=== PATIENT | female | born 1960 | race Caucasian/White ===

== ENCOUNTER 2016-11-12 22:58 | Inpatient (IN) | payer OTHER ==
[~2016-11-12] VITALS: Ht 167.6 cm; Wt 70.4 kg
[~2016-11-12 22:58] MED LIST: AMPI3VIA IV; ASPI1TAB30 PO; ATOR20TA9 PO; ATOR40TA PO; FURO-92 PO; FURO-93 PO; LEVO750P2 IV; LIDOCAINE PATCH TD; MESA1.2T PO; METH750T87 PO; METO25TA91 PO; MORP100T27 PO; ONDA4TAB7 PO; OXYC-229 PO; PANT40TA3 PO; POTA20TA89 PO; PRED20TA PO; PRED50TA PO; PYRI60TA2 PO; VANC1VIA3 PO; VENL150C PO
[2016-11-12] MEDS ORDERED: AMPICILLIN/SULBACTAM 3 GM in SODIUM CHLORIDE 0.9% 100 ML IV ONE (23:30)
[2016-11-12] MEDS ORDERED: VANCOMYCIN PER PHARMACY MC ONE (23:30)
[2016-11-13] MEDS ORDERED: VANCOMYCIN 1,400 MG in SODIUM CHLORIDE 0.9% 250 ML IV ONE
[2016-11-13 00:40] LABS: BLOOD UREA NITROGEN 59 mg/dL (7-18)
[2016-11-13 00:44] LABS: ASPARTATE AMINO TRANSFERASE 32 U/L (15-37); DIFF TOTAL CELLS COUNTED 100 CELL DIFF
[2016-11-13 00:49] LABS: ANISOCYTOSIS 2+; MICROCYTOSIS 2+; VERIFY COUNTS? YES
[2016-11-13 00:50] LABS: HYPOCHROMIA 1+; OVALOCYTES 1+; POLYCHROMASIA 1+
[2016-11-13 00:51] LABS: TARGET CELLS 1+
[2016-11-13 00:52] LABS: SCHISTOCYTES 1+
[2016-11-13 00:53] LABS: LARGE PLATELETS 1+
[2016-11-13] MEDS ORDERED: CLINDAMYCIN PMX 600MG/50ML 50 ML IV ONE (01:00)
[2016-11-13] MEDS ORDERED: SODIUM CHLORIDE 0.9% 1,000ML IVBOLUS ONE (01:00)
[2016-11-13] MEDS ORDERED: POLYETHYLENE GLYCOL 17 GM PACKET PO PRN (02:00)
[2016-11-13] MEDS ORDERED: BISACODYL 10 MG SUPP PR PRN (02:00)
[2016-11-13] MEDS ORDERED: GUAIFENESIN/DM 200-20MG, 10ML UDC PO PRN (02:00)
[2016-11-13] MEDS ORDERED: DOCUSATE 100 MG CAPSULE PO PRN (02:00)
[2016-11-13] MEDS ORDERED: TRAZODONE 50MG TABLET PO PRN (02:00)
[2016-11-13] MEDS: HEPARIN 5,000 UNITS/ML, 1ML SQ SCH ×3 (02:00→18:08)
[2016-11-13] MEDS ORDERED: LABETALOL 5MG/ML, 20ML IV PRN (02:00)
[2016-11-13] MEDS: NICOTINE 14MG/24 HR PATCH.TD24 TD SCH (02:00)
[2016-11-13] MEDS ORDERED: CLINDAMYCIN PMX 600MG/50ML 50 ML ONE (02:24)
[2016-11-13] MEDS: SODIUM CHLORIDE 0.9% 1,000 ML IV SCH ×4 (02:29→21:56)
[2016-11-13 02:50] VITALS: BP 143/88
[2016-11-13] MEDS: PYRIDOSTIGMINE 60 MG TABLET PO SCH ×5 (04:28→21:14)
[2016-11-13] MEDS: LINEZOLID PMX 600MG/300ML 300 ML IV SCH ×2 (04:28→15:54)
[2016-11-13] MEDS: METOPROLOL SUCCINATE 25 MG TAB.ER.24H PO SCH (06:04)
[2016-11-13] MEDS: PIPERACILLIN/TAZO/PMX 3.375GM 50 ML IV SCH ×3 (07:26→21:15)
[2016-11-13] MEDS: predniSONE 50MG TABLET PO SCH (08:05)
[2016-11-13] MEDS: PANTOPROZOLE 40MG TABLET PO SCH ×2 (08:05→21:15)
[2016-11-13] MEDS: METHOCARBAMOL 750 MG TABLET PO SCH ×3 (08:05→21:15)
[2016-11-13] MEDS: VENLAFAXINE 75 MG CAP ER PO SCH (08:05)
[2016-11-13] MEDS: MESALAMINE 1.2 GM TABLET.DR PO SCH ×2 (08:05→21:15)
[2016-11-13 08:06] VITALS: BP 125/77
[2016-11-13] MEDS: LIDODERM 5% PATCH TD SCH (08:06)
[2016-11-13] MEDS: MORPHINE SULFATE 4 MG/ML, 1ML IVPush PRN (08:37)
[2016-11-13 08:57] LABS: DAU SCREEN DISCLAIMER
[2016-11-13 12:42] VITALS: BP 174/91
[2016-11-13 12:50] VITALS: BP 147/78
[2016-11-13 16:00] VITALS: BP 159/80
[2016-11-13 19:44] VITALS: BP 126/79
[2016-11-13] MEDS: ATORVASTATIN 40 MG TABLET PO SCH (21:15)
[2016-11-14 02:00] VITALS: BP 134/80
[2016-11-14] MEDS: PYRIDOSTIGMINE 60 MG TABLET PO SCH ×6 (04:36→21:48)
[2016-11-14] MEDS: HEPARIN 5,000 UNITS/ML, 1ML SQ SCH ×3 (04:37→21:48)
[2016-11-14] MEDS: SODIUM CHLORIDE 0.9% 1,000 ML IV SCH ×4 (04:37→21:47)
[2016-11-14] MEDS: PIPERACILLIN/TAZO/PMX 3.375GM 50 ML IV SCH ×4 (04:37→21:48)
[2016-11-14] MEDS: METOPROLOL SUCCINATE 25 MG TAB.ER.24H PO SCH (05:55)
[2016-11-14] MEDS: LINEZOLID PMX 600MG/300ML 300 ML IV SCH (05:55)
[2016-11-14 07:44] LABS: BLOOD UREA NITROGEN 23 mg/dL (7-18)
[2016-11-14 07:50] VITALS: BP 147/83
[2016-11-14 08:23] LABS: DIFF TOTAL CELLS COUNTED 100 CELL DIFF
[2016-11-14 08:26] LABS: VERIFY COUNTS? YES
[2016-11-14 08:27] LABS: ANISOCYTOSIS 2+; HYPOCHROMIA 1+; MICROCYTOSIS 2+; OVALOCYTES 1+; POIKILOCYTOSIS 2+
[2016-11-14 08:28] LABS: ACANTHOCYTES 1+
[2016-11-14 08:29] LABS: TARGET CELLS 1+
[2016-11-14] MEDS: NICOTINE 14MG/24 HR PATCH.TD24 TD SCH (09:00)
[2016-11-14] MEDS: LIDODERM 5% PATCH TD SCH (09:00)
[2016-11-14] MEDS: ONDANSETRON 2MG/ML, 2ML IVP PRN ×2 (09:39→21:51)
[2016-11-14] MEDS: MESALAMINE 1.2 GM TABLET.DR PO SCH ×2 (10:03→21:48)
[2016-11-14] MEDS: predniSONE 50MG TABLET PO SCH (10:03)
[2016-11-14] MEDS: PANTOPROZOLE 40MG TABLET PO SCH ×2 (10:03→21:48)
[2016-11-14] MEDS: METHOCARBAMOL 750 MG TABLET PO SCH ×3 (10:03→21:48)
[2016-11-14] MEDS: MORPHINE SULFATE 4 MG/ML, 1ML IVPush PRN (10:04)
[2016-11-14] MEDS: VENLAFAXINE 75 MG CAP ER PO SCH (10:04)
[2016-11-14 14:22] VITALS: BP 139/91
[2016-11-14] MEDS: metroNIDAZOLE 500 MG TABLET PO SCH ×2 (15:53→21:48)
[2016-11-14 19:25] VITALS: BP 146/86
[2016-11-14] MEDS: ATORVASTATIN 40 MG TABLET PO SCH (21:48)
[2016-11-15 02:00] VITALS: BP 127/81
[2016-11-15] MEDS: ONDANSETRON 2MG/ML, 2ML IVP PRN ×2 (03:16→09:14)
[2016-11-15] MEDS: SODIUM CHLORIDE 0.9% 1,000 ML IV SCH ×4 (03:16→20:19)
[2016-11-15] MEDS: PIPERACILLIN/TAZO/PMX 3.375GM 50 ML IV SCH ×4 (03:19→23:47)
[2016-11-15] MEDS: PYRIDOSTIGMINE 60 MG TABLET PO SCH ×6 (03:19→20:19)
[2016-11-15] MEDS: METOPROLOL SUCCINATE 25 MG TAB.ER.24H PO SCH (05:23)
[2016-11-15] MEDS: HEPARIN 5,000 UNITS/ML, 1ML SQ SCH ×2 (05:23→13:12)
[2016-11-15 06:05] LABS: BLOOD UREA NITROGEN 9 mg/dL (7-18)
[2016-11-15 07:02] VITALS: BP 146/85
[2016-11-15 07:11] LABS: DIFF TOTAL CELLS COUNTED 100 CELL DIFF
[2016-11-15 07:12] LABS: ANISOCYTOSIS 2+; HYPOCHROMIA 2+; MICROCYTOSIS 2+; POIKILOCYTOSIS 1+; VERIFY COUNTS? YES
[2016-11-15 07:13] LABS: OVALOCYTES 1+
[2016-11-15] MEDS: POTASSIUM CHLORIDE 20 MEQ TAB.ER.PRT PO SCH ×2 (08:00→16:53)
[2016-11-15] MEDS: PANTOPROZOLE 40MG TABLET PO SCH ×2 (09:00→22:18)
[2016-11-15] MEDS: NICOTINE 14MG/24 HR PATCH.TD24 TD SCH (09:00)
[2016-11-15] MEDS: metroNIDAZOLE 500 MG TABLET PO SCH (09:00)
[2016-11-15] MEDS: MESALAMINE 1.2 GM TABLET.DR PO SCH ×2 (09:00→22:19)
[2016-11-15] MEDS: VENLAFAXINE 75 MG CAP ER PO SCH (09:00)
[2016-11-15] MEDS: METHOCARBAMOL 750 MG TABLET PO SCH ×3 (09:00→22:19)
[2016-11-15] MEDS: predniSONE 50MG TABLET PO SCH ×2 (09:00→13:13)
[2016-11-15] MEDS: MORPHINE SULFATE 4 MG/ML, 1ML IVPush PRN ×3 (09:14→23:47)
[2016-11-15] MEDS ORDERED: VANCOMYCIN PER PHARMACY MC PRN (09:30)
[2016-11-15] MEDS ORDERED: POTASSIUM CHLORIDE 40 MEQ in SODIUM CHLORIDE 0.9% 500 ML IV ONE (10:30)
[2016-11-15] MEDS ORDERED: PHARMACOKINETIC CONSULTATION MC ONE (11:30)
[2016-11-15] MEDS ORDERED: PHARMACOKINETIC MONITORING MC PRN (11:30)
[2016-11-15] MEDS: VANCOMYCIN 1,200 MG in SODIUM CHLORIDE 0.9% 250 ML IV SCH (12:20)
[2016-11-15 13:59] VITALS: BP 139/80
[2016-11-15] MEDS: METRONIDAZOLE PMX 500MG/100ML 100 ML IV SCH ×2 (14:19→20:18)
[2016-11-15] MEDS: PANTOPRAZOLE 40 MG IV IVPush SCH (16:53)
[2016-11-15 19:00] LABS: OCCBLD OBC PASS
[2016-11-15] MEDS ORDERED: OMNIPAQUE 350 MG/ML, 100ML BOTTLE ONE (20:00)
[2016-11-15 20:04] VITALS: BP 159/91
[2016-11-15 20:25] VITALS: BP 155/85
[2016-11-15] MEDS: ATORVASTATIN 40 MG TABLET PO SCH (22:18)
[2016-11-15] MEDS: LIDODERM 5% PATCH TD SCH (22:18)
[2016-11-16] MEDS: VANCOMYCIN 1,200 MG in SODIUM CHLORIDE 0.9% 250 ML IV SCH ×2 (00:22→12:06)
[2016-11-16] MEDS: ONDANSETRON 2MG/ML, 2ML IVP PRN ×3 (00:22→23:15)
[2016-11-16] MEDS: PYRIDOSTIGMINE 60 MG TABLET PO SCH ×6 (00:22→19:50)
[2016-11-16 02:00] VITALS: BP 148/98
[2016-11-16] MEDS: MORPHINE SULFATE 4 MG/ML, 1ML IVPush PRN ×5 (02:52→23:16)
[2016-11-16 04:01] LABS: BLOOD UREA NITROGEN 11 mg/dL (7-18)
[2016-11-16 04:13] LABS: DIFF TOTAL CELLS COUNTED 100 CELL DIFF
[2016-11-16 04:14] LABS: VERIFY COUNTS? YES
[2016-11-16 04:15] LABS: ANISOCYTOSIS 2+; HYPOCHROMIA 1+; MICROCYTOSIS 2+; OVALOCYTES 1+; POIKILOCYTOSIS 1+; POLYCHROMASIA 1+
[2016-11-16] MEDS: SODIUM CHLORIDE 0.9% 1,000 ML IV SCH ×4 (04:38→21:52)
[2016-11-16] MEDS: METRONIDAZOLE PMX 500MG/100ML 100 ML IV SCH ×2 (04:38→12:06)
[2016-11-16 05:39] VITALS: BP 138/79
[2016-11-16] MEDS: PIPERACILLIN/TAZO/PMX 3.375GM 50 ML IV SCH ×4 (05:43→23:16)
[2016-11-16] MEDS: METOPROLOL SUCCINATE 25 MG TAB.ER.24H PO SCH (05:43)
[2016-11-16 08:10] VITALS: BP 132/81
[2016-11-16] MEDS: METHOCARBAMOL 750 MG TABLET PO SCH ×3 (08:38→21:52)
[2016-11-16] MEDS: predniSONE 50MG TABLET PO SCH (08:38)
[2016-11-16] MEDS: MESALAMINE 1.2 GM TABLET.DR PO SCH ×2 (08:38→21:52)
[2016-11-16] MEDS: PANTOPRAZOLE 40 MG IV IVPush SCH (08:38)
[2016-11-16] MEDS: VENLAFAXINE 75 MG CAP ER PO SCH (08:39)
[2016-11-16] MEDS: NICOTINE 14MG/24 HR PATCH.TD24 TD SCH (08:39)
[2016-11-16] MEDS: POTASSIUM CHLORIDE 20 MEQ TAB.ER.PRT PO SCH (11:09)
[2016-11-16 13:00] VITALS: BP 154/87
[2016-11-16] MEDS: VANCOMYCIN 50 MG/ML ORAL SUSP PO SCH ×2 (16:31→23:15)
[2016-11-16] MEDS: PANTOPROZOLE 40MG TABLET PO SCH (16:43)
[2016-11-16 20:11] VITALS: BP 125/80
[2016-11-16] MEDS: ATORVASTATIN 40 MG TABLET PO SCH (21:52)
[2016-11-16] MEDS: LIDODERM 5% PATCH TD SCH (21:54)
[2016-11-17] VITALS (10 sets, daily range): BP systolic 115–139; BP diastolic 75–90
[2016-11-17] MEDS: PYRIDOSTIGMINE 60 MG TABLET PO SCH ×6 (00:33→20:52)
[2016-11-17] MEDS: VANCOMYCIN 1,200 MG in SODIUM CHLORIDE 0.9% 250 ML IV SCH (00:33)
[2016-11-17] MEDS: VANCOMYCIN 50 MG/ML ORAL SUSP PO SCH ×3 (04:53→18:35)
[2016-11-17] MEDS: ONDANSETRON 2MG/ML, 2ML IVP PRN ×2 (04:53→18:35)
[2016-11-17] MEDS: PIPERACILLIN/TAZO/PMX 3.375GM 50 ML IV SCH ×3 (05:22→22:38)
[2016-11-17] MEDS: METOPROLOL SUCCINATE 25 MG TAB.ER.24H PO SCH (05:23)
[2016-11-17] MEDS: SODIUM CHLORIDE 0.9% 1,000 ML IV SCH ×2 (07:30→16:27)
[2016-11-17] MEDS: PANTOPROZOLE 40MG TABLET PO SCH (08:00)
[2016-11-17] MEDS: NICOTINE 14MG/24 HR PATCH.TD24 TD SCH (09:00)
[2016-11-17] MEDS: MORPHINE SULFATE 4 MG/ML, 1ML IVPush PRN ×2 (09:51→18:35)
[2016-11-17] MEDS: predniSONE 50MG TABLET PO SCH (12:12)
[2016-11-17] MEDS: VENLAFAXINE 75 MG CAP ER PO SCH (12:12)
[2016-11-17] MEDS: MESALAMINE 1.2 GM TABLET.DR PO SCH ×2 (12:12→20:53)
[2016-11-17] MEDS: METHOCARBAMOL 750 MG TABLET PO SCH ×3 (12:12→20:53)
[2016-11-17 15:43] LABS: BLOOD UREA NITROGEN 10 mg/dL (7-18); DIFF TOTAL CELLS COUNTED 100 CELL DIFF
[2016-11-17 15:45] LABS: VERIFY COUNTS? YES
[2016-11-17 15:46] LABS: ANISOCYTOSIS 2+; HYPOCHROMIA 1+; MICROCYTOSIS 1+
[2016-11-17 15:47] LABS: OVALOCYTES 1+; POLYCHROMASIA 1+
[2016-11-17] MEDS: PANTOPRAZOLE 40 MG IV IVPush SCH (16:26)
[2016-11-17] MEDS: VANCOMYCIN 1,100 MG in SODIUM CHLORIDE 0.9% 250 ML IV SCH (17:02)
[2016-11-17] MEDS: LIDODERM 5% PATCH TD SCH (20:53)
[2016-11-17] MEDS: ATORVASTATIN 40 MG TABLET PO SCH (20:53)
[2016-11-18] MEDS: PYRIDOSTIGMINE 60 MG TABLET PO SCH ×6 (00:32→21:44)
[2016-11-18] MEDS: VANCOMYCIN 50 MG/ML ORAL SUSP PO SCH ×4 (00:32→18:12)
[2016-11-18] MEDS: ONDANSETRON 2MG/ML, 2ML IVP PRN ×2 (00:33→06:02)
[2016-11-18] MEDS: MORPHINE SULFATE 4 MG/ML, 1ML IVPush PRN ×4 (00:33→18:28)
[2016-11-18] MEDS: SODIUM CHLORIDE 0.9% 1,000 ML IV SCH ×3 (01:56→21:43)
[2016-11-18 01:58] VITALS: BP 111/74
[2016-11-18] MEDS: PANTOPRAZOLE 40 MG IV IVPush SCH ×2 (04:11→16:28)
[2016-11-18] MEDS: PIPERACILLIN/TAZO/PMX 3.375GM 50 ML IV SCH ×3 (04:11→18:12)
[2016-11-18] MEDS: VANCOMYCIN 1,100 MG in SODIUM CHLORIDE 0.9% 250 ML IV SCH ×2 (04:57→16:04)
[2016-11-18 05:38] VITALS: BP 121/76
[2016-11-18] MEDS: METOPROLOL SUCCINATE 25 MG TAB.ER.24H PO SCH (05:42)
[2016-11-18 06:45] VITALS: BP 109/75
[2016-11-18] MEDS: NICOTINE 14MG/24 HR PATCH.TD24 TD SCH (09:00)
[2016-11-18] MEDS: MESALAMINE 1.2 GM TABLET.DR PO SCH ×2 (09:10→21:44)
[2016-11-18] MEDS: METHOCARBAMOL 750 MG TABLET PO SCH ×3 (09:11→21:43)
[2016-11-18] MEDS: VENLAFAXINE 75 MG CAP ER PO SCH (09:11)
[2016-11-18] MEDS: predniSONE 50MG TABLET PO SCH (09:11)
[2016-11-18 12:45] VITALS: BP 111/69
[2016-11-18 20:28] VITALS: BP 135/71
[2016-11-18] MEDS: ATORVASTATIN 40 MG TABLET PO SCH (21:44)
[2016-11-18] MEDS: LIDODERM 5% PATCH TD SCH (21:44)
[2016-11-19] VITALS (11 sets, daily range): BP systolic 113–138; BP diastolic 72–93
[2016-11-19] MEDS: VANCOMYCIN 50 MG/ML ORAL SUSP PO SCH ×4 (00:12→19:53)
[2016-11-19] MEDS: PIPERACILLIN/TAZO/PMX 3.375GM 50 ML IV SCH ×4 (00:12→19:52)
[2016-11-19] MEDS: PYRIDOSTIGMINE 60 MG TABLET PO SCH ×6 (01:45→19:53)
[2016-11-19] MEDS: MORPHINE SULFATE 4 MG/ML, 1ML IVPush PRN ×4 (01:45→19:53)
[2016-11-19] MEDS: VANCOMYCIN 1,100 MG in SODIUM CHLORIDE 0.9% 250 ML IV SCH ×2 (04:25→17:07)
[2016-11-19] MEDS: PANTOPRAZOLE 40 MG IV IVPush SCH ×2 (04:25→17:07)
[2016-11-19] MEDS: SODIUM CHLORIDE 0.9% 1,000 ML IV SCH (04:25)
[2016-11-19] MEDS: METOPROLOL SUCCINATE 25 MG TAB.ER.24H PO SCH (05:54)
[2016-11-19 06:43] LABS: BLOOD UREA NITROGEN 9 mg/dL (7-18); TOTAL IRON BINDING CAPACITY 253 mcg/dL (250-450)
[2016-11-19] MEDS: METHOCARBAMOL 750 MG TABLET PO SCH ×3 (08:26→19:53)
[2016-11-19] MEDS: VENLAFAXINE 75 MG CAP ER PO SCH (08:26)
[2016-11-19] MEDS: predniSONE 50MG TABLET PO SCH (08:26)
[2016-11-19] MEDS: MESALAMINE 1.2 GM TABLET.DR PO SCH ×2 (08:26→19:53)
[2016-11-19] MEDS: NICOTINE 14MG/24 HR PATCH.TD24 TD SCH (08:26)
[2016-11-19] MEDS: POTASSIUM CHLORIDE 20 MEQ TAB.ER.PRT PO SCH ×2 (10:32→17:07)
[2016-11-19] MEDS: ONDANSETRON 2MG/ML, 2ML IVP PRN ×2 (10:32→20:28)
[2016-11-19] MEDS: LIDODERM 5% PATCH TD SCH (19:53)
[2016-11-19] MEDS: ATORVASTATIN 40 MG TABLET PO SCH (19:53)
[2016-11-20 01:17] VITALS: BP 139/85
[2016-11-20] MEDS: VANCOMYCIN 50 MG/ML ORAL SUSP PO SCH ×2 (01:17→08:31)
[2016-11-20] MEDS: PIPERACILLIN/TAZO/PMX 3.375GM 50 ML IV SCH ×2 (01:17→08:30)
[2016-11-20] MEDS: PYRIDOSTIGMINE 60 MG TABLET PO SCH ×6 (01:18→20:24)
[2016-11-20] MEDS: MORPHINE SULFATE 4 MG/ML, 1ML IVPush PRN ×6 (01:18→23:06)
[2016-11-20] MEDS: ONDANSETRON 2MG/ML, 2ML IVP PRN (05:22)
[2016-11-20] MEDS: PANTOPRAZOLE 40 MG IV IVPush SCH ×2 (05:22→17:37)
[2016-11-20] MEDS: VANCOMYCIN 1,100 MG in SODIUM CHLORIDE 0.9% 250 ML IV SCH (05:22)
[2016-11-20] MEDS: METOPROLOL SUCCINATE 25 MG TAB.ER.24H PO SCH (05:22)
[2016-11-20 07:06] VITALS: BP 129/78
[2016-11-20] MEDS: VENLAFAXINE 75 MG CAP ER PO SCH (08:31)
[2016-11-20] MEDS: METHOCARBAMOL 750 MG TABLET PO SCH ×3 (08:31→20:24)
[2016-11-20] MEDS: POTASSIUM CHLORIDE 20 MEQ TAB.ER.PRT PO SCH ×2 (08:31→17:37)
[2016-11-20] MEDS: predniSONE 50MG TABLET PO SCH (08:32)
[2016-11-20] MEDS: MESALAMINE 1.2 GM TABLET.DR PO SCH ×2 (08:32→23:08)
[2016-11-20] MEDS: NICOTINE 14MG/24 HR PATCH.TD24 TD SCH (09:00)
[2016-11-20] MEDS ORDERED: IRON DEXTRAN IV PER PHARMACY IV PRN (10:00)
[2016-11-20] MEDS ORDERED: IRON DEXTRAN COMPLEX 25 MG in SODIUM CHLORIDE 0.9% 50 ML IV ONE (10:30)
[2016-11-20] MEDS ORDERED: IRON DEXTRAN COMPLEX IV ONE (11:00)
[2016-11-20] MEDS ORDERED: SODIUM CHLORIDE 0.9% IV ONE (11:00)
[2016-11-20] MEDS ORDERED: EPINEPHRINE SYRINGE 0.1 MG/ML, 10ML ONE (11:24)
[2016-11-20] MEDS ORDERED: EPINEPHRINE SYRINGE 0.1 MG/ML, 10ML IVPush ONE (11:30)
[2016-11-20] MEDS: LEVOFLOXACIN/PMX 750MG/150ML 150 ML IV SCH (13:17)
[2016-11-20 14:06] VITALS: BP 117/72
[2016-11-20 16:42] LABS: BLOOD UREA NITROGEN 8 mg/dL (7-18)
[2016-11-20] MEDS: MOVIPREP POWDER 1 PREP KIT PO SCH ×2 (17:00→21:00)
[2016-11-20 17:11] LABS: DIFF TOTAL CELLS COUNTED 100 CELL DIFF
[2016-11-20 17:42] LABS: ANISOCYTOSIS 2+; MICROCYTOSIS 1+; OVALOCYTES 1+; POLYCHROMASIA 1+; VERIFY COUNTS? YES
[2016-11-20 17:43] LABS: HYPOCHROMIA 1+
[2016-11-20 19:59] VITALS: BP 147/90
[2016-11-20] MEDS: ATORVASTATIN 40 MG TABLET PO SCH (20:24)
[2016-11-20] MEDS: LIDODERM 5% PATCH TD SCH (20:26)
[2016-11-20] MEDS ORDERED: FUROSEMIDE 20 MG TABLET PO SCH (21:00)
[2016-11-21 01:50] VITALS: BP 151/89
[2016-11-21] MEDS: PYRIDOSTIGMINE 60 MG TABLET PO SCH ×6 (02:14→22:58)
[2016-11-21] MEDS: PANTOPRAZOLE 40 MG IV IVPush SCH (02:14)
[2016-11-21] MEDS: MORPHINE SULFATE 4 MG/ML, 1ML IVPush PRN ×6 (02:15→22:58)
[2016-11-21 02:41] LABS: BLOOD UREA NITROGEN 8 mg/dL (7-18)
[2016-11-21 02:44] LABS: ASPARTATE AMINO TRANSFERASE 19 U/L (15-37)
[2016-11-21 02:49] LABS: DIFF TOTAL CELLS COUNTED 100 CELL DIFF
[2016-11-21 02:51] LABS: ANISOCYTOSIS 2+; HYPOCHROMIA 1+; MICROCYTOSIS 1+; OVALOCYTES 1+; POLYCHROMASIA 1+; VERIFY COUNTS? YES
[2016-11-21] MEDS: METOPROLOL SUCCINATE 25 MG TAB.ER.24H PO SCH (06:01)
[2016-11-21 07:52] VITALS: BP 142/84
[2016-11-21] MEDS: NICOTINE 14MG/24 HR PATCH.TD24 TD SCH (09:00)
[2016-11-21] MEDS: VENLAFAXINE 75 MG CAP ER PO SCH (09:30)
[2016-11-21] MEDS: MESALAMINE 1.2 GM TABLET.DR PO SCH ×2 (09:30→20:17)
[2016-11-21] MEDS: predniSONE 50MG TABLET PO SCH (09:30)
[2016-11-21] MEDS: VANCOMYCIN 50 MG/ML ORAL SUSP PO SCH ×3 (09:31→20:17)
[2016-11-21] MEDS: METHOCARBAMOL 750 MG TABLET PO SCH ×3 (09:31→22:58)
[2016-11-21 09:34] VITALS: BP 156/90
[2016-11-21] MEDS: LEVOFLOXACIN/PMX 750MG/150ML 150 ML IV SCH (10:37)
[2016-11-21 14:00] VITALS: BP 135/86
[2016-11-21] MEDS: ONDANSETRON 2MG/ML, 2ML IVP PRN (14:01)
[2016-11-21] MEDS: FUROSEMIDE 20 MG TABLET PO SCH (14:01)
[2016-11-21 20:01] VITALS: BP 152/62
[2016-11-21] MEDS: PANTOPROZOLE 40MG TABLET PO SCH (20:18)
[2016-11-21] MEDS: ATORVASTATIN 40 MG TABLET PO SCH (20:18)
[2016-11-21] MEDS: LIDODERM 5% PATCH TD SCH (20:22)
[2016-11-22 01:36] VITALS: BP 134/62
[2016-11-22] MEDS: VANCOMYCIN 50 MG/ML ORAL SUSP PO SCH ×4 (02:39→20:42)
[2016-11-22] MEDS: PYRIDOSTIGMINE 60 MG TABLET PO SCH ×5 (02:39→20:43)
[2016-11-22] MEDS: MORPHINE SULFATE 4 MG/ML, 1ML IVPush PRN ×5 (02:39→20:41)
[2016-11-22] MEDS: METOPROLOL SUCCINATE 25 MG TAB.ER.24H PO SCH (06:00)
[2016-11-22 07:30] VITALS: BP 137/89
[2016-11-22] MEDS: NICOTINE 14MG/24 HR PATCH.TD24 TD SCH (09:00)
[2016-11-22] MEDS: VENLAFAXINE 75 MG CAP ER PO SCH (09:21)
[2016-11-22] MEDS: METHOCARBAMOL 750 MG TABLET PO SCH ×3 (09:21→20:43)
[2016-11-22] MEDS: PANTOPROZOLE 40MG TABLET PO SCH ×2 (09:21→20:43)
[2016-11-22] MEDS: FUROSEMIDE 20 MG TABLET PO SCH (09:21)
[2016-11-22] MEDS: MESALAMINE 1.2 GM TABLET.DR PO SCH ×2 (09:22→20:43)
[2016-11-22] MEDS: predniSONE 50MG TABLET PO SCH (09:22)
[2016-11-22] MEDS: LEVOFLOXACIN/PMX 750MG/150ML 150 ML IV SCH (09:23)
[2016-11-22 10:31] LABS: ASPARTATE AMINO TRANSFERASE 17 U/L (15-37); BLOOD UREA NITROGEN 9 mg/dL (7-18)
[2016-11-22 10:40] LABS: DIFF TOTAL CELLS COUNTED 100 CELL DIFF
[2016-11-22 10:41] LABS: POLYCHROMASIA 1+; VERIFY COUNTS? YES
[2016-11-22 10:42] LABS: ANISOCYTOSIS 1+; MICROCYTOSIS 1+; OVALOCYTES 1+; POIKILOCYTOSIS 1+
[2016-11-22 10:44] LABS: HYPOCHROMIA 1+
[2016-11-22 13:10] VITALS: BP 123/83
[2016-11-22 18:46] VITALS: BP 134/92
[2016-11-22] MEDS: ATORVASTATIN 40 MG TABLET PO SCH (20:42)
[2016-11-22] MEDS: LIDODERM 5% PATCH TD SCH (20:43)
[2016-11-22] MEDS: CATHFLO-ALTEPLASE 2 MG/2 ML CATHFLUSH ONE (20:45)
[2016-11-23 01:15] VITALS: BP 145/89
[2016-11-23] MEDS: PYRIDOSTIGMINE 60 MG TABLET PO SCH ×6 (02:14→19:44)
[2016-11-23] MEDS: VANCOMYCIN 50 MG/ML ORAL SUSP PO SCH ×4 (02:14→19:45)
[2016-11-23] MEDS: MORPHINE SULFATE 4 MG/ML, 1ML IVPush PRN ×6 (02:14→21:05)
[2016-11-23] MEDS: METOPROLOL SUCCINATE 25 MG TAB.ER.24H PO SCH (05:31)
[2016-11-23] MEDS: CATHFLO-ALTEPLASE 2 MG/2 ML CATHFLUSH ONE (06:27)
[2016-11-23 06:42] VITALS: BP 138/91
[2016-11-23 07:05] LABS: BLOOD UREA NITROGEN 9 mg/dL (7-18)
[2016-11-23 07:17] LABS: ANISOCYTOSIS 1+
[2016-11-23 07:19] LABS: OVALOCYTES 1+; POLYCHROMASIA 2+
[2016-11-23] MEDS: VENLAFAXINE 75 MG CAP ER PO SCH (08:31)
[2016-11-23] MEDS: PANTOPROZOLE 40MG TABLET PO SCH ×2 (08:31→19:45)
[2016-11-23] MEDS: predniSONE 50MG TABLET PO SCH (08:31)
[2016-11-23] MEDS: METHOCARBAMOL 750 MG TABLET PO SCH ×3 (08:32→19:44)
[2016-11-23] MEDS: MESALAMINE 1.2 GM TABLET.DR PO SCH ×2 (08:32→19:44)
[2016-11-23] MEDS: NICOTINE 14MG/24 HR PATCH.TD24 TD SCH (08:36)
[2016-11-23] MEDS: FUROSEMIDE 20 MG TABLET PO SCH (09:00)
[2016-11-23] MEDS: LEVOFLOXACIN/PMX 750MG/150ML 150 ML IV SCH (10:00)
[2016-11-23 16:50] VITALS: BP 139/87
[2016-11-23] MEDS ORDERED: LEVO750T26 PO (17:05)
[2016-11-23] MEDS ORDERED: PRED20TA PO (17:05)
[2016-11-23] MEDS ORDERED: FURO-93 PO (17:05)
[2016-11-23] MEDS ORDERED: MESA1.2T PO (17:05)
[2016-11-23] MEDS ORDERED: VANC1VIA3 PO (17:05)
[2016-11-23] MEDS: POTASSIUM CHLORIDE 20 MEQ TAB.ER.PRT PO SCH (18:04)
[2016-11-23 18:42] VITALS: BP 131/76
[2016-11-23] MEDS: ATORVASTATIN 40 MG TABLET PO SCH (19:45)
[2016-11-23] MEDS: LIDODERM 5% PATCH TD SCH (19:46)
[2016-11-24] MEDS: VANCOMYCIN 50 MG/ML ORAL SUSP PO SCH ×4 (02:08→19:39)
[2016-11-24] MEDS: PYRIDOSTIGMINE 60 MG TABLET PO SCH ×6 (02:08→19:39)
[2016-11-24] MEDS: MORPHINE SULFATE 4 MG/ML, 1ML IVPush PRN ×6 (02:08→21:15)
[2016-11-24 02:22] VITALS: BP 151/84
[2016-11-24] MEDS: METOPROLOL SUCCINATE 25 MG TAB.ER.24H PO SCH (05:41)
[2016-11-24 06:43] LABS: BLOOD UREA NITROGEN 9 mg/dL (7-18)
[2016-11-24 06:47] VITALS: BP 151/91
[2016-11-24] MEDS: NICOTINE 14MG/24 HR PATCH.TD24 TD SCH (09:00)
[2016-11-24] MEDS: POTASSIUM CHLORIDE 20 MEQ TAB.ER.PRT PO SCH (09:46)
[2016-11-24] MEDS: METHOCARBAMOL 750 MG TABLET PO SCH ×3 (09:46→19:39)
[2016-11-24] MEDS: MESALAMINE 1.2 GM TABLET.DR PO SCH ×2 (09:47→19:39)
[2016-11-24] MEDS: FUROSEMIDE 20 MG TABLET PO SCH (09:47)
[2016-11-24] MEDS: PANTOPROZOLE 40MG TABLET PO SCH ×2 (09:47→19:39)
[2016-11-24] MEDS: VENLAFAXINE 75 MG CAP ER PO SCH (09:48)
[2016-11-24] MEDS: predniSONE 50MG TABLET PO SCH (09:49)
[2016-11-24] MEDS: LEVOFLOXACIN 750 MG TABLET PO SCH (09:49)
[2016-11-24 12:30] VITALS: BP 108/75
[2016-11-24] MEDS: ATORVASTATIN 40 MG TABLET PO SCH (19:39)
[2016-11-24] MEDS: LIDODERM 5% PATCH TD SCH (19:41)
[2016-11-24 20:23] VITALS: BP 127/83
[2016-11-25] MEDS: VANCOMYCIN 50 MG/ML ORAL SUSP PO SCH ×4 (02:13→22:28)
[2016-11-25] MEDS: MORPHINE SULFATE 4 MG/ML, 1ML IVPush PRN ×6 (02:13→22:28)
[2016-11-25] MEDS: PYRIDOSTIGMINE 60 MG TABLET PO SCH ×6 (02:13→19:48)
[2016-11-25 03:17] VITALS: BP 111/78
[2016-11-25] MEDS: METHOCARBAMOL 750 MG TABLET PO SCH ×3 (04:50→19:48)
[2016-11-25] MEDS: METOPROLOL SUCCINATE 25 MG TAB.ER.24H PO SCH (05:47)
[2016-11-25 07:43] VITALS: BP 131/78
[2016-11-25 08:10] LABS: BLOOD UREA NITROGEN 8 mg/dL (7-18)
[2016-11-25] MEDS: LACTOBACILLUS CHEW TABLET PO SCH ×4 (08:30→19:48)
[2016-11-25] MEDS: NICOTINE 14MG/24 HR PATCH.TD24 TD SCH (09:00)
[2016-11-25 09:06] LABS: ANISOCYTOSIS 1+; OVALOCYTES 1+; POLYCHROMASIA 1+
[2016-11-25 09:07] LABS: MICROCYTOSIS 1+
[2016-11-25] MEDS: LEVOFLOXACIN 750 MG TABLET PO SCH (09:52)
[2016-11-25] MEDS: FUROSEMIDE 20 MG TABLET PO SCH (09:52)
[2016-11-25] MEDS: VENLAFAXINE 75 MG CAP ER PO SCH (09:52)
[2016-11-25] MEDS: MESALAMINE 1.2 GM TABLET.DR PO SCH ×2 (09:52→19:48)
[2016-11-25] MEDS: PANTOPROZOLE 40MG TABLET PO SCH ×2 (09:53→19:48)
[2016-11-25 15:01] VITALS: BP 108/70
[2016-11-25 18:39] VITALS: BP 126/77
[2016-11-25] MEDS: LIDODERM 5% PATCH TD SCH (19:48)
[2016-11-25] MEDS: ATORVASTATIN 40 MG TABLET PO SCH (19:48)
[2016-11-26 00:54] VITALS: BP 113/76
[2016-11-26] MEDS: PYRIDOSTIGMINE 60 MG TABLET PO SCH ×5 (02:21→17:59)
[2016-11-26] MEDS: MORPHINE SULFATE 4 MG/ML, 1ML IVPush PRN ×3 (02:21→14:35)
[2016-11-26] MEDS: METOPROLOL SUCCINATE 25 MG TAB.ER.24H PO SCH (05:17)
[2016-11-26] MEDS: LACTOBACILLUS CHEW TABLET PO SCH ×3 (05:17→16:48)
[2016-11-26] MEDS: VANCOMYCIN 50 MG/ML ORAL SUSP PO SCH ×3 (05:17→16:48)
[2016-11-26 08:11] VITALS: BP 115/83
[2016-11-26] MEDS: METHOCARBAMOL 750 MG TABLET PO SCH ×2 (08:37→16:47)
[2016-11-26] MEDS: MESALAMINE 1.2 GM TABLET.DR PO SCH (08:37)
[2016-11-26] MEDS: LEVOFLOXACIN 750 MG TABLET PO SCH (08:38)
[2016-11-26] MEDS: PANTOPROZOLE 40MG TABLET PO SCH (08:38)
[2016-11-26] MEDS: VENLAFAXINE 75 MG CAP ER PO SCH (08:39)
[2016-11-26] MEDS: FUROSEMIDE 20 MG TABLET PO SCH (08:39)
[2016-11-26] MEDS: NICOTINE 14MG/24 HR PATCH.TD24 TD SCH (08:58)
[2016-11-26 13:50] VITALS: BP 122/79
[2016-11-26] MEDS ORDERED: ACID1TAB7 PO ×2 (14:50→17:34)
[2016-11-26] MEDS ORDERED: LEVO750T26 PO ×2 (14:52→17:34)
[2016-11-26] MEDS ORDERED: VANC1VIA3 PO (14:52)
[2016-11-26] MEDS ORDERED: PRED20TA PO ×2 (14:52→17:34)
[2016-11-26] MEDS ORDERED: MESA1.2T PO (17:34)
[2016-11-26] MEDS ORDERED: VANC125C2 PO (17:34)
== END 2016-11-26 18:35 | disposition home health service (06) | DRG 871 ==
LOC: ED 23:59 → EDIP 11-13 01:28 → 4EST 11-13 02:53 → 3NE 11-21 18:39
PROVIDERS: ADMIT Internal Medicine; ATTEND Internal Medicine
PROC: 30233N1 Transfusion of Nonautologous Red Blood Cells into Peripheral Vein, Percutaneous Approach (ICD-10-PCS; principal; 2016-11-17)
PROC: 02HV33Z Insertion of Infusion Device into Superior Vena Cava, Percutaneous Approach (ICD-10-PCS; 2016-11-18)
PROC: B5181ZA Fluoroscopy of Superior Vena Cava using Low Osmolar Contrast, Guidance (ICD-10-PCS; 2016-11-18)
PROC: 3E04329 Introduction of Other Anti-infective into Central Vein, Percutaneous Approach (ICD-10-PCS; 2016-11-18)
PROC: B548ZZA Ultrasonography of Superior Vena Cava, Guidance (ICD-10-PCS; 2016-11-18)
DX: A41.9 Sepsis, unspecified organism (principal); N17.0 Acute kidney failure with tubular necrosis; E87.1 Hypo-osmolality and hyponatremia; F11.20 Opioid dependence, uncomplicated; I50.32 Chronic diastolic (congestive) heart failure; L03.115 Cellulitis of right lower limb; L03.116 Cellulitis of left lower limb; A04.7 Enterocolitis due to Clostridium difficile; D62 Acute posthemorrhagic anemia; L88 Pyoderma gangrenosum; I82.503 Chronic embolism and thrombosis of unspecified deep veins of lower extremity, bilateral; K51.90 Ulcerative colitis, unspecified, without complications; R18.8 Other ascites; M48.54XA Collapsed vertebra, not elsewhere classified, thoracic region, initial encounter for fracture; M48.56XA Collapsed vertebra, not elsewhere classified, lumbar region, initial encounter for fracture; E44.0 Moderate protein-calorie malnutrition; D64.9 Anemia, unspecified; E83.52 Hypercalcemia; E88.09 Other disorders of plasma-protein metabolism, not elsewhere classified; G89.29 Other chronic pain; I89.0 Lymphedema, not elsewhere classified; E87.6 Hypokalemia; I73.00 Raynaud's syndrome without gangrene; G70.00 Myasthenia gravis without (acute) exacerbation; F17.210 Nicotine dependence, cigarettes, uncomplicated; M35.00 Sjogren syndrome, unspecified; K80.20 Calculus of gallbladder without cholecystitis without obstruction; D75.89 Other specified diseases of blood and blood-forming organs; Z53.29 Procedure and treatment not carried out because of patient's decision for other reasons; Z99.81 Dependence on supplemental oxygen; I25.2 Old myocardial infarction; Z79.52 Long term (current) use of systemic steroids; Z91.19 Patient's noncompliance with other medical treatment and regimen; Z86.711 Personal history of pulmonary embolism
CPT/HCPCS: 36415; 36569; 71010; 74174; 76937; 77001; 80048; 80053; 80202; 80307; 81001; 81206; 81207; 82272; 82306; 82397; 82728; 83540; 83550; 83605; 83735; 83970; 84145; 85014; 85018; 85025; 86850; 86900; 86923; 87040; 87070; 87077; 87186; 87205; 87324; 87493; 93005; 93970; 96365; 96366; 96368; 99291; J0295; J1644; J1750; J1956; J2020; J2405; J2543; J2997; J3370; J3480; Q9967; C1751; C9113; J7030; J7040; J7050; J7512; P9016

== ENCOUNTER → 2016-12-04 | Outpatient (CLI) | payer OTHER ==
[~2016-12-04] MED LIST changes: +ACID1TAB7 PO; +LEVO750T26 PO; +VANC125C2 PO
== END | disposition home or self-care (01) ==
LOC: WOUND 08:53
PROVIDERS: ATTEND Podiatrist Foot & Ankle Surgery
DX: L88 Pyoderma gangrenosum (principal); K51.918 Ulcerative colitis, unspecified with other complication; F41.9 Anxiety disorder, unspecified; F32.9 Major depressive disorder, single episode, unspecified; I25.2 Old myocardial infarction; I50.30 Unspecified diastolic (congestive) heart failure; I89.0 Lymphedema, not elsewhere classified; E83.52 Hypercalcemia; E44.0 Moderate protein-calorie malnutrition; F17.210 Nicotine dependence, cigarettes, uncomplicated; Z86.718 Personal history of other venous thrombosis and embolism; Z86.711 Personal history of pulmonary embolism
CPT/HCPCS: 99215

== ENCOUNTER → 2016-12-17 | Outpatient (CLI) | payer OTHER | END | disposition home or self-care (01) | LOC: CFH 06:37 | PROVIDERS: ATTEND Podiatrist Foot & Ankle Surgery | DX: Z02.9 Encounter for administrative examinations, unspecified (principal) ==

== ENCOUNTER → 2017-01-01 | Outpatient (CLI) | payer OTHER | END | disposition home or self-care (01) | LOC: WOUND 08:30 | PROVIDERS: ATTEND Podiatrist Foot & Ankle Surgery | DX: I89.0 Lymphedema, not elsewhere classified (principal); L88 Pyoderma gangrenosum; R23.4 Changes in skin texture; F41.9 Anxiety disorder, unspecified; I25.2 Old myocardial infarction; I21.4 Non-ST elevation (NSTEMI) myocardial infarction; I50.30 Unspecified diastolic (congestive) heart failure; K51.918 Ulcerative colitis, unspecified with other complication; F17.210 Nicotine dependence, cigarettes, uncomplicated; F32.9 Major depressive disorder, single episode, unspecified; Z86.718 Personal history of other venous thrombosis and embolism; Z86.711 Personal history of pulmonary embolism | CPT/HCPCS: 97597; 97598 ==

== ENCOUNTER → 2017-01-21 | Outpatient (CLI) | payer OTHER | END | disposition home or self-care (01) | LOC: CFH 07:05 | PROVIDERS: ATTEND Podiatrist Foot & Ankle Surgery | DX: I82.4Y3 Acute embolism and thrombosis of unspecified deep veins of proximal lower extremity, bilateral (principal); S81.802D Unspecified open wound, left lower leg, subsequent encounter; S81.801D Unspecified open wound, right lower leg, subsequent encounter; L97.812 Non-pressure chronic ulcer of other part of right lower leg with fat layer exposed; L97.822 Non-pressure chronic ulcer of other part of left lower leg with fat layer exposed; I11.0 Hypertensive heart disease with heart failure; I50.9 Heart failure, unspecified; E78.5 Hyperlipidemia, unspecified; I87.2 Venous insufficiency (chronic) (peripheral); K21.9 Gastro-esophageal reflux disease without esophagitis; Z87.891 Personal history of nicotine dependence; X58.XXXD Exposure to other specified factors, subsequent encounter | CPT/HCPCS: 93922; 93925; 93970 ==

== ENCOUNTER 2017-02-01 12:33 | Inpatient (IN) | payer OTHER ==
[~2017-02-01] VITALS: Ht 167.6 cm; Wt 65.9 kg
[2017-02-01 14:19] LABS: BLOOD UREA NITROGEN 26 mg/dL (7-18)
[2017-02-01 14:20] LABS: IS PT STATUS REG ER OR PRE ER? YES
[2017-02-01] MEDS ORDERED: METR500T4 PO (14:28)
[2017-02-01] MEDS ORDERED: METO25TA35 PO (14:28)
[2017-02-01] MEDS ORDERED: MIRT30TA4 PO (14:28)
[2017-02-01] MEDS ORDERED: PRED20TA PO (14:28)
[2017-02-01] MEDS ORDERED: POTA20TA89 PO (14:28)
[2017-02-01] MEDS ORDERED: OMNIPAQUE 350 MG/ML, 100ML BOTTLE ONE (15:55)
[2017-02-01] MEDS ORDERED: ENOXAPARIN 60 MG/0.6 ML SQ ONE ×2 (16:24→17:00)
[2017-02-01] MEDS ORDERED: CEFTAROLINE 600 MG in SODIUM CHLORIDE 0.9% 100 ML IV ONE (16:30)
[2017-02-01] MEDS ORDERED: SODIUM CHLORIDE 0.9% 1,000 ML IV ONE (16:35)
[2017-02-01] MEDS ORDERED: ENOXAPARIN 60 MG/0.6 ML ONE (16:50)
[2017-02-01] MEDS ORDERED: ONDANSETRON 2MG/ML, 2ML ONE (16:52)
[2017-02-01] MEDS ORDERED: MORPHINE SULFATE 4 MG/ML, 1ML ONE (16:52)
[2017-02-01] MEDS: MORPHINE SULFATE 4 MG/ML, 1ML IVPush PRN ×2 (16:54→20:45)
[2017-02-01] MEDS ORDERED: ONDANSETRON 2MG/ML, 2ML IVPush PRN ×2 (17:00→19:30)
[2017-02-01 17:29] VITALS: BP 155/93
[2017-02-01] MEDS ORDERED: DEXTROSE 50%, 50ML SYRINGE IVPush PRN (19:30)
[2017-02-01] MEDS ORDERED: GLUCAGON 1 MG IM PRN (19:30)
[2017-02-01] MEDS ORDERED: LIDODERM 5% PATCH TD SCH (19:30)
[2017-02-01] MEDS ORDERED: DEXTROSE 4 GM TAB.CHEW PO PRN (19:30)
[2017-02-01] MEDS ORDERED: ACETAMINOPHEN 325 MG TABLET PO PRN (19:30)
[2017-02-01 19:33] VITALS: BP 137/91
[2017-02-01] MEDS: FUROSEMIDE 40 MG TABLET PO SCH (21:00)
[2017-02-01] MEDS ORDERED: metroNIDAZOLE 500 MG TABLET PO SCH (21:00)
[2017-02-01] MEDS: morphine SULFATE 60 MG TABLET.ER PO SCH (21:00)
[2017-02-01] MEDS: INSULIN ASPART 100 UNITS/ML, PEN SQ-INSULIN SCH (21:00)
[2017-02-01 21:25] VITALS: BP 162/101
[2017-02-01] MEDS: PANTOPROZOLE 40MG TABLET PO SCH (22:42)
[2017-02-01] MEDS: PYRIDOSTIGMINE 60 MG TABLET PO SCH (22:42)
[2017-02-01] MEDS: METOPROLOL TARTRATE 25 MG TABLET PO SCH (22:43)
[2017-02-01] MEDS: MESALAMINE 1.2 GM TABLET.DR PO SCH (22:44)
[2017-02-01] MEDS: ATORVASTATIN 40 MG TABLET PO SCH (22:44)
[2017-02-01] MEDS: METHOCARBAMOL 750 MG TABLET PO SCH (22:44)
[2017-02-01] MEDS: SODIUM CHLORIDE FLUSH 10ML SYR IVF SCH (22:45)
[2017-02-01] MEDS: ENOXAPARIN 40 MG/0.4 ML SQ SCH (22:45)
[2017-02-02 01:29] VITALS: BP 158/95
[2017-02-02] MEDS: MORPHINE SULFATE 4 MG/ML, 1ML IVPush PRN ×4 (01:37→21:03)
[2017-02-02 02:59] VITALS: BP 162/105
[2017-02-02] MEDS: PYRIDOSTIGMINE 60 MG TABLET PO SCH ×4 (05:31→20:51)
[2017-02-02 06:46] LABS: IS PT STATUS REG ER OR PRE ER? NO
[2017-02-02 06:48] LABS: ASPARTATE AMINO TRANSFERASE 27 U/L (15-37); BLOOD UREA NITROGEN 20 mg/dL (7-18)
[2017-02-02] MEDS: INSULIN ASPART 100 UNITS/ML, PEN SQ-INSULIN SCH (07:00)
[2017-02-02 08:10] VITALS: BP 132/84
[2017-02-02] MEDS: SODIUM CHLORIDE FLUSH 10ML SYR IVF SCH (09:00)
[2017-02-02] MEDS ORDERED: LIDODERM 5% PATCH TD SCH (09:00)
[2017-02-02] MEDS: METHOCARBAMOL 750 MG TABLET PO SCH ×3 (09:30→20:51)
[2017-02-02] MEDS: PANTOPROZOLE 40MG TABLET PO SCH ×2 (09:30→20:51)
[2017-02-02] MEDS: MESALAMINE 1.2 GM TABLET.DR PO SCH ×2 (09:30→20:52)
[2017-02-02] MEDS: MIRTAZAPINE 15 MG TABLET PO SCH (09:30)
[2017-02-02] MEDS: METOPROLOL TARTRATE 25 MG TABLET PO SCH ×2 (09:31→20:51)
[2017-02-02] MEDS: POTASSIUM CHLORIDE 20 MEQ TAB.ER.PRT PO SCH (09:31)
[2017-02-02] MEDS: LIDODERM 5% PATCH TD SCH (09:32)
[2017-02-02] MEDS: morphine SULFATE 60 MG TABLET.ER PO SCH ×2 (09:35→20:52)
[2017-02-02] MEDS ORDERED: MORPHINE SULFATE 4 MG/ML, 1ML ONE (09:51)
[2017-02-02 12:01] LABS: IS PT STATUS REG ER OR PRE ER? NO
[2017-02-02 14:32] VITALS: BP 117/72
[2017-02-02 18:42] VITALS: BP 138/82
[2017-02-02] MEDS: ENOXAPARIN 40 MG/0.4 ML SQ SCH (20:51)
[2017-02-02] MEDS: FUROSEMIDE 40 MG TABLET PO SCH (20:52)
[2017-02-02] MEDS: ATORVASTATIN 40 MG TABLET PO SCH (20:52)
[2017-02-03 02:00] VITALS: BP 133/77
[2017-02-03] MEDS: MORPHINE SULFATE 4 MG/ML, 1ML IVPush PRN ×2 (03:26→11:03)
[2017-02-03 05:56] LABS: BLOOD UREA NITROGEN 16 mg/dL (7-18)
[2017-02-03] MEDS: PYRIDOSTIGMINE 60 MG TABLET PO SCH ×4 (06:12→22:08)
[2017-02-03 06:57] VITALS: BP 130/95
[2017-02-03] MEDS: MESALAMINE 1.2 GM TABLET.DR PO SCH ×2 (09:00→22:08)
[2017-02-03] MEDS: POTASSIUM CHLORIDE 20 MEQ TAB.ER.PRT PO SCH (09:01)
[2017-02-03] MEDS: METOPROLOL TARTRATE 25 MG TABLET PO SCH ×2 (09:01→22:08)
[2017-02-03] MEDS: PANTOPROZOLE 40MG TABLET PO SCH ×2 (09:01→22:08)
[2017-02-03] MEDS: MIRTAZAPINE 15 MG TABLET PO SCH (09:01)
[2017-02-03] MEDS: METHOCARBAMOL 750 MG TABLET PO SCH ×3 (09:01→22:08)
[2017-02-03] MEDS: morphine SULFATE 60 MG TABLET.ER PO SCH ×2 (09:05→22:08)
[2017-02-03] MEDS: VENLAFAXINE 75 MG CAP ER PO SCH (10:58)
[2017-02-03 12:44] VITALS: BP 112/65
[2017-02-03 20:23] VITALS: BP 111/73
[2017-02-03] MEDS: FUROSEMIDE 40 MG TABLET PO SCH (21:00)
[2017-02-03] MEDS: LIDODERM 5% PATCH TD SCH (22:08)
[2017-02-03] MEDS: ENOXAPARIN 40 MG/0.4 ML SQ SCH (22:08)
[2017-02-03] MEDS: ATORVASTATIN 40 MG TABLET PO SCH (22:08)
[2017-02-04 01:59] VITALS: BP 149/81
[2017-02-04] MEDS: PYRIDOSTIGMINE 60 MG TABLET PO SCH ×4 (05:54→20:31)
[2017-02-04 06:42] VITALS: BP 143/93
[2017-02-04] MEDS: VENLAFAXINE 75 MG CAP ER PO SCH (08:18)
[2017-02-04] MEDS: MESALAMINE 1.2 GM TABLET.DR PO SCH ×2 (08:19→20:31)
[2017-02-04] MEDS: PANTOPROZOLE 40MG TABLET PO SCH ×2 (08:19→20:31)
[2017-02-04] MEDS: POTASSIUM CHLORIDE 20 MEQ TAB.ER.PRT PO SCH (08:19)
[2017-02-04] MEDS: MIRTAZAPINE 15 MG TABLET PO SCH (08:19)
[2017-02-04] MEDS: METOPROLOL TARTRATE 25 MG TABLET PO SCH ×2 (08:19→20:31)
[2017-02-04] MEDS: METHOCARBAMOL 750 MG TABLET PO SCH ×3 (08:19→20:31)
[2017-02-04] MEDS: morphine SULFATE 60 MG TABLET.ER PO SCH ×2 (08:20→20:32)
[2017-02-04] MEDS: MORPHINE SULFATE 4 MG/ML, 1ML IVPush PRN ×2 (09:55→17:21)
[2017-02-04 12:58] VITALS: BP 110/72
[2017-02-04 18:18] VITALS: BP 120/74
[2017-02-04] MEDS: ATORVASTATIN 40 MG TABLET PO SCH (20:31)
[2017-02-04] MEDS: FUROSEMIDE 40 MG TABLET PO SCH (20:32)
[2017-02-04] MEDS: ENOXAPARIN 40 MG/0.4 ML SQ SCH (20:32)
[2017-02-04] MEDS: LIDODERM 5% PATCH TD SCH (20:32)
[2017-02-05 02:42] VITALS: BP 134/79
[2017-02-05] MEDS: PYRIDOSTIGMINE 60 MG TABLET PO SCH ×4 (06:12→23:14)
[2017-02-05] MEDS: MORPHINE SULFATE 4 MG/ML, 1ML IVPush PRN ×3 (06:18→18:26)
[2017-02-05 07:24] VITALS: BP 119/75
[2017-02-05] MEDS: morphine SULFATE 60 MG TABLET.ER PO SCH ×2 (08:39→21:12)
[2017-02-05] MEDS: VENLAFAXINE 75 MG CAP ER PO SCH (08:40)
[2017-02-05] MEDS: MESALAMINE 1.2 GM TABLET.DR PO SCH ×2 (08:40→21:12)
[2017-02-05] MEDS: METHOCARBAMOL 750 MG TABLET PO SCH ×3 (08:40→23:14)
[2017-02-05] MEDS: MIRTAZAPINE 15 MG TABLET PO SCH (08:40)
[2017-02-05] MEDS: METOPROLOL TARTRATE 25 MG TABLET PO SCH ×2 (08:41→21:12)
[2017-02-05] MEDS: POTASSIUM CHLORIDE 20 MEQ TAB.ER.PRT PO SCH (08:41)
[2017-02-05] MEDS: PANTOPROZOLE 40MG TABLET PO SCH ×2 (08:41→21:12)
[2017-02-05] MEDS: LIDODERM 5% PATCH TD SCH (09:00)
[2017-02-05] MEDS ORDERED: ENOXAPARIN 60 MG/0.6 ML SQ SCH (09:30)
[2017-02-05 13:13] VITALS: BP 116/72
[2017-02-05] MEDS ORDERED: ENOXAPARIN 40 MG/0.4 ML SQ SCH (15:00)
[2017-02-05 20:10] VITALS: BP 117/73
[2017-02-05] MEDS: ATORVASTATIN 40 MG TABLET PO SCH (21:12)
[2017-02-05] MEDS: FUROSEMIDE 40 MG TABLET PO SCH (21:12)
[2017-02-06 05:29] VITALS: BP 127/81
[2017-02-06 05:37] LABS: BLOOD UREA NITROGEN 14 mg/dL (7-18)
[2017-02-06] MEDS: PYRIDOSTIGMINE 60 MG TABLET PO SCH ×2 (05:52→12:32)
[2017-02-06] MEDS: MORPHINE SULFATE 4 MG/ML, 1ML IVPush PRN ×3 (05:56→12:31)
[2017-02-06 08:35] VITALS: BP 125/74
[2017-02-06] MEDS: LIDODERM 5% PATCH TD SCH (08:35)
[2017-02-06] MEDS: METHOCARBAMOL 750 MG TABLET PO SCH (08:41)
[2017-02-06] MEDS: PANTOPROZOLE 40MG TABLET PO SCH (08:42)
[2017-02-06] MEDS: VENLAFAXINE 75 MG CAP ER PO SCH (08:42)
[2017-02-06] MEDS: METOPROLOL TARTRATE 25 MG TABLET PO SCH (08:42)
[2017-02-06] MEDS: POTASSIUM CHLORIDE 20 MEQ TAB.ER.PRT PO SCH (08:42)
[2017-02-06] MEDS: MIRTAZAPINE 15 MG TABLET PO SCH (08:42)
[2017-02-06] MEDS: MESALAMINE 1.2 GM TABLET.DR PO SCH (08:43)
[2017-02-06] MEDS: morphine SULFATE 60 MG TABLET.ER PO SCH (08:48)
[2017-02-06 14:34] VITALS: BP 109/73
[2017-02-07] MEDS ORDERED: POTASSIUM CHLORIDE 20 MEQ TAB.ER.PRT PO SCH (09:00)
== END 2017-02-06 17:25 | disposition home or self-care (01) | DRG 603 ==
LOC: ED 14:23 → EDIP 16:35 → 3NE 17:06 → 4WST 21:14 → 3NE 02-04 11:42 → DCLOUNGE 02-06 16:20
PROVIDERS: ADMIT Internal Medicine; ATTEND Hospitalist
DX: L03.115 Cellulitis of right lower limb (principal); E87.2 Acidosis; I50.32 Chronic diastolic (congestive) heart failure; I82.511 Chronic embolism and thrombosis of right femoral vein; K51.90 Ulcerative colitis, unspecified, without complications; F11.20 Opioid dependence, uncomplicated; F17.210 Nicotine dependence, cigarettes, uncomplicated; G70.00 Myasthenia gravis without (acute) exacerbation; G89.4 Chronic pain syndrome; I11.0 Hypertensive heart disease with heart failure; I77.1 Stricture of artery; I25.10 Atherosclerotic heart disease of native coronary artery without angina pectoris; I35.1 Nonrheumatic aortic (valve) insufficiency; L03.116 Cellulitis of left lower limb; L97.519 Non-pressure chronic ulcer of other part of right foot with unspecified severity; L97.529 Non-pressure chronic ulcer of other part of left foot with unspecified severity; Z79.52 Long term (current) use of systemic steroids; Z86.711 Personal history of pulmonary embolism; Z91.19 Patient's noncompliance with other medical treatment and regimen; Z79.899 Other long term (current) drug therapy; I25.2 Old myocardial infarction
CPT/HCPCS: 36415; 71275; 80048; 80053; 82040; 83605; 83735; 83880; 84100; 84145; 84443; 84484; 85025; 87040; 87070; 87077; 87186; 87205; 87324; 93970; 96372; 96374; 96375; J0712; J1650; J2405; Q9967; J7512

== ENCOUNTER → 2017-02-12 | Outpatient (CLI) | payer OTHER ==
[~2017-02-12] MED LIST changes: +METO25TA35 PO; +METR500T4 PO; +MIRT30TA4 PO
== END | disposition home or self-care (01) ==
LOC: WOUND 14:30
PROVIDERS: ATTEND Podiatrist Foot & Ankle Surgery
DX: I89.0 Lymphedema, not elsewhere classified (principal); L88 Pyoderma gangrenosum; K51.918 Ulcerative colitis, unspecified with other complication; F41.9 Anxiety disorder, unspecified; F32.9 Major depressive disorder, single episode, unspecified; I25.2 Old myocardial infarction; F17.210 Nicotine dependence, cigarettes, uncomplicated; I25.10 Atherosclerotic heart disease of native coronary artery without angina pectoris; I11.0 Hypertensive heart disease with heart failure; I50.32 Chronic diastolic (congestive) heart failure; Z79.52 Long term (current) use of systemic steroids; F11.90 Opioid use, unspecified, uncomplicated; E78.5 Hyperlipidemia, unspecified; I87.2 Venous insufficiency (chronic) (peripheral); Z86.718 Personal history of other venous thrombosis and embolism; Z86.711 Personal history of pulmonary embolism
CPT/HCPCS: 99215

== ENCOUNTER → 2017-03-19 | Outpatient (CLI) | payer OTHER ==
[~2017-03-19] MED LIST changes: -METR500T4 PO; +METR500T8 PO; -OXYC-229 PO; +OXYC-307 PO
== END | disposition home or self-care (01) ==
LOC: WOUND 14:38
PROVIDERS: ATTEND Podiatrist Foot & Ankle Surgery
DX: S81.812A Laceration without foreign body, left lower leg, initial encounter (principal); I89.0 Lymphedema, not elsewhere classified; L88 Pyoderma gangrenosum; K51.918 Ulcerative colitis, unspecified with other complication; F41.9 Anxiety disorder, unspecified; I25.10 Atherosclerotic heart disease of native coronary artery without angina pectoris; I11.0 Hypertensive heart disease with heart failure; I50.30 Unspecified diastolic (congestive) heart failure; E78.5 Hyperlipidemia, unspecified; F32.9 Major depressive disorder, single episode, unspecified; F17.210 Nicotine dependence, cigarettes, uncomplicated; I25.2 Old myocardial infarction; F11.90 Opioid use, unspecified, uncomplicated; Z86.718 Personal history of other venous thrombosis and embolism; Z86.711 Personal history of pulmonary embolism; I87.2 Venous insufficiency (chronic) (peripheral); X58.XXXA Exposure to other specified factors, initial encounter; Y93.89 Activity, other specified; Y92.89 Other specified places as the place of occurrence of the external cause; Y99.8 Other external cause status
CPT/HCPCS: 97597

== ENCOUNTER → 2017-04-23 | Outpatient (CLI) | payer OTHER ==
[~2017-04-23] MED LIST changes: -ASPI1TAB30 PO; +ASPI1TAB31 PO
== END | disposition home or self-care (01) ==
LOC: WOUND 14:29
PROVIDERS: ATTEND Podiatrist Foot & Ankle Surgery
DX: L97.421 Non-pressure chronic ulcer of left heel and midfoot limited to breakdown of skin (principal); F41.9 Anxiety disorder, unspecified; I25.10 Atherosclerotic heart disease of native coronary artery without angina pectoris; E78.5 Hyperlipidemia, unspecified; I89.0 Lymphedema, not elsewhere classified; I25.2 Old myocardial infarction; I13.0 Hypertensive heart and chronic kidney disease with heart failure and stage 1 through stage 4 chronic kidney disease, or unspecified chronic kidney disease; N18.1 Chronic kidney disease, stage 1; I50.30 Unspecified diastolic (congestive) heart failure; Z86.711 Personal history of pulmonary embolism; L88 Pyoderma gangrenosum
CPT/HCPCS: 11042

== ENCOUNTER 2017-07-08 15:35 | Inpatient (IN) | payer OTHER ==
[~2017-07-08] VITALS: Ht 167.6 cm; Wt 59.0 kg
[2017-07-08] MEDS ORDERED: SODIUM CHLORIDE 0.9% 1,000ML IVBOLUS ONE ×2 (16:00→18:00)
[2017-07-08] MEDS ORDERED: SODIUM CHLORIDE FLUSH 10ML SYR IVF ONE (16:00)
[2017-07-08 16:49] LABS: ALANINE AMINOTRANSFERASE 41 U/L (12-78); ALBUMIN 2.9 g/dL (3.4-5.0); ANION GAP 6 mmol/L (5-15); CALCIUM 8.8 mg/dL (8.5-10.1); CHLORIDE 99 mmol/L (98-107); CREATININE 0.94 mg/dL (0.55-1.02)
[2017-07-08 16:53] LABS: ALKALINE PHOSPHATASE 78 U/L (45-117); BILIRUBIN,TOTAL 0.6 mg/dL (0.2-1.0); TOTAL PROTEIN 6.5 g/dL (6.4-8.2); TROPONIN I 0.071 ng/mL (0.000-0.045)
[2017-07-08 17:03] LABS: MEAN CORPUSCULAR HEMOGLOBIN 22.7 pg (27.0-34.8); MEAN CORPUSCULAR HGB CONC 30.3 g/dL (32.4-35.8); MEAN PLATELET VOLUME 8.5 fL (7.4-10.4); PLATELET COUNT 388 x10^3/uL (130-400); RED BLOOD COUNT 4.52 x10^6/uL (3.82-5.3); RED CELL DISTRIBUTION WIDTH 18.3 % (9.6-15.2)
[2017-07-08 17:16] LABS: MD YES
[2017-07-08 17:26] LABS: BANDS%(MANUAL) 4 % (0-7); LYMPHS% (MANUAL) 4 % (22-44); MONOS#(MANUAL) 0.55 x10^3/uL (0.3-2.7); MONOS% (MANUAL) 2 % (2-9); SEG#(MANUAL) 24.66 x10^3/uL (1.8-6.8); SEGS% (MANUAL) 90 % (42-75)
[2017-07-08] MEDS ORDERED: OMNIPAQUE 350 MG/ML, 100ML BOTTLE ONE (17:27)
[2017-07-08 17:28] LABS: HYPOCHROMIA 1+; MICROCYTOSIS 1+; OVALOCYTES 1+; POLYCHROMASIA 1+
[2017-07-08 17:30] LABS: <PLATELET ESTIMATE> ADEQUATE; <PLT MORPHOLOGY> NORMAL PLT MORPH; ANISOCYTOSIS 1+; SPHEROCYTES 1+
[2017-07-08] MEDS ORDERED: PIPERACILLIN/TAZO/PMX 3.375GM 50 ML IVPB ONE (17:30)
[2017-07-08] MEDS ORDERED: PIPERACILLIN/TAZO/PMX 3.375GM 50 ML ONE (18:39)
[2017-07-08] MEDS ORDERED: MIDAZOLAM 1 MG/ML, 2ML ONE (18:52)
[2017-07-08] MEDS ORDERED: LIDOCAINE-MPF 2% ,5ML ONE (18:52)
[2017-07-08] MEDS ORDERED: FENTANYL PF 250 MCG/5ML ONE (18:52)
[2017-07-08] MEDS ORDERED: PROPOFOL 10 MG/ML, 20ML ONE (18:52)
[2017-07-08] MEDS ORDERED: SUCCINYLCHOLINE 20 MG/ML, 10ML ONE (18:53)
[2017-07-08] MEDS ORDERED: ROCURONIUM 10 MG/ML,10ML ONE (18:53)
[2017-07-08] MEDS ORDERED: BUPIVACAINE/PF 0.5% ONE (18:56)
[2017-07-08] MEDS ORDERED: EPINEPHRINE 1 MG/ML, 1ML ONE (18:56)
[2017-07-08] MEDS ORDERED: hydrALAzine 20 MG/ML, 1ML IVPush PRN (19:00)
[2017-07-08] MEDS ORDERED: morphine SULFATE 10 MG/ML, 1ML IVPush PRN (19:00)
[2017-07-08] MEDS ORDERED: NEOSTIGMINE 1 MG/ML, 10ML ONE (19:22)
[2017-07-08] MEDS ORDERED: ONDANSETRON 2MG/ML, 2ML ONE (19:22)
[2017-07-08] MEDS ORDERED: GLYCOPYRROLATE 0.2MG/1ML, 5ML ONE (19:22)
[2017-07-08] MEDS ORDERED: PHENYLEPHRINE 10 MG/ML ONE (19:22)
[2017-07-08] MEDS ORDERED: HYDROCORTISONE 100 MG INJ. ONE (20:06)
[2017-07-08] MEDS ORDERED: KETAMINE 10 MG/ML, 20ML ONE (20:20)
[2017-07-08] MEDS ORDERED: ALBUTEROL/IPRATROPIUM 2.5MG/0.5MG, 3 ML ONE (21:22)
[2017-07-08] MEDS ORDERED: LABETALOL 5MG/ML, 20ML IV PRN (21:30)
[2017-07-08] MEDS ORDERED: ONDANSETRON 2MG/ML, 2ML IVPush PRN (21:30)
[2017-07-08] MEDS ORDERED: ALBUTEROL/IPRATROPIUM 2.5MG/0.5MG, 3 ML NPPB PRN (21:30)
[2017-07-08] MEDS ORDERED: MEPERIDINE/PF 25MG/0.5ML IVPush PRN (21:30)
[2017-07-08] MEDS ORDERED: PROMETHAZINE 25 MG/ML, 1ML IV PRN (21:30)
[2017-07-08] MEDS ORDERED: FENTANYL PF 100 MCG/2ML IV PRN (21:30)
[2017-07-08] MEDS ORDERED: hydrALAzine 20 MG/ML, 1ML IV PRN (21:30)
[2017-07-08] MEDS ORDERED: OXYcodone 5 MG/5 ML ORAL.SOL UDC PO PRN (21:30)
[2017-07-08] MEDS ORDERED: HYDROmorphone 1 MG/ML, 1ML IV PRN (21:30)
[2017-07-08] MEDS ORDERED: KETOROLAC 30 MG/1 ML ONE (21:35)
[2017-07-08] MEDS ORDERED: FENTANYL PF 100 MCG/2ML ONE (21:35)
[2017-07-08] MEDS ORDERED: KETOROLAC 30 MG/1 ML IVPush SCH (22:00)
[2017-07-08 22:12] VITALS: BP 165/88
[2017-07-08 22:56] LABS: TROPONIN I 0.054 ng/mL (0.000-0.045)
[2017-07-08] MEDS ORDERED: KETOROLAC 30 MG/1 ML IVPush ONE (23:00)
[2017-07-08] MEDS ORDERED: LACTATED RINGERS 1,000 ML IV SCH (23:00)
[2017-07-08] MEDS: NICOTINE 14MG/24 HR PATCH.TD24 TD SCH (23:34)
[2017-07-08] MEDS: SODIUM CHLORIDE 0.9% 1,000 ML IV SCH (23:34)
[2017-07-08] MEDS: FLUCONAZOLE 200 MG/100 ML 100 ML IV SCH (23:44)
[2017-07-09] MEDS: PIPERACILLIN/TAZO/PMX 3.375GM 50 ML IV SCH ×4 (01:07→20:22)
[2017-07-09 04:00] VITALS: BP 175/95
[2017-07-09] MEDS: KETOROLAC 30 MG/1 ML IVPush SCH ×4 (04:09→20:54)
[2017-07-09] MEDS: HYDROCORTISONE 100 MG INJ. IVPush SCH ×3 (04:10→20:22)
[2017-07-09] MEDS: SODIUM CHLORIDE 0.9% 1,000 ML IV SCH (04:15)
[2017-07-09 04:42] LABS: MEAN CORPUSCULAR HEMOGLOBIN 23.3 pg (27.0-34.8); MEAN CORPUSCULAR HGB CONC 31.5 g/dL (32.4-35.8); MEAN CORPUSCULAR VOLUME 74.2 fL (80-100); MEAN PLATELET VOLUME 8.4 fL (7.4-10.4); PLATELET COUNT 277 x10^3/uL (130-400); RED CELL DISTRIBUTION WIDTH 18.3 % (9.6-15.2)
[2017-07-09 04:51] LABS: ALANINE AMINOTRANSFERASE 35 U/L (12-78); ALBUMIN 2.3 g/dL (3.4-5.0); ANION GAP 5 mmol/L (5-15); CALCIUM 7.5 mg/dL (8.5-10.1); CHLORIDE 106 mmol/L (98-107)
[2017-07-09 04:58] LABS: ALKALINE PHOSPHATASE 54 U/L (45-117); BILIRUBIN,TOTAL 0.4 mg/dL (0.2-1.0); CREATININE 0.51 mg/dL (0.55-1.02); TOTAL PROTEIN 5.3 g/dL (6.4-8.2); TROPONIN I 0.058 ng/mL (0.000-0.045)
[2017-07-09 05:10] LABS: BASOPHILS % (AUTO) 0 % (0-1); EOSINOPHILS % (AUTO) 0 % (1-7); LYMPHOCYTES # (AUTO) 0.34 x10^3/uL (1-3.4); LYMPHOCYTES % (AUTO) 2 % (22-44); MD SCAN; MONOCYTES % (AUTO) 2 % (2-9); NEUTROPHILS # (AUTO) 19.58 x10^3/uL (1.8-6.8); NEUTROPHILS % (AUTO) 96 % (42-75)
[2017-07-09] MEDS ORDERED: POTASSIUM CHLORIDE 40 MEQ in SODIUM CHLORIDE 0.9% 100 ML IV ONE (08:00)
[2017-07-09] MEDS ORDERED: ALBUTEROL SULFATE 2.5 MG/3 ML ONE (08:38)
[2017-07-09] MEDS ORDERED: METOPROLOL 1 MG/ML, 5ML ONE (08:55)
[2017-07-09] MEDS ORDERED: MAGNESIUM SULFATE PMX 2GM/50ML 50 ML IV ONE ×2 (09:00→10:00)
[2017-07-09] MEDS ORDERED: METOPROLOL 1 MG/ML, 5ML IVPush ONE (09:00)
[2017-07-09 09:08] LABS: O2 FLOW 15 L/min
[2017-07-09] MEDS ORDERED: POTASSIUM CHLORIDE 40 MEQ in SODIUM CHLORIDE 0.9% 500 ML IV ONE (10:34)
[2017-07-09] MEDS: IRON SUCROSE COMPLEX 100MG/5ML IV SCH (11:26)
[2017-07-09] MEDS: ONDANSETRON 2MG/ML, 2ML IVPush PRN ×2 (13:41→20:42)
[2017-07-09] MEDS: NICOTINE 14MG/24 HR PATCH.TD24 TD SCH (19:00)
[2017-07-09] MEDS: METOPROLOL TARTRATE 25 MG TABLET PO SCH (20:42)
[2017-07-09] MEDS: SODIUM CHLORIDE FLUSH 10ML SYR IVF SCH (20:42)
[2017-07-09] MEDS: FLUCONAZOLE 200 MG/100 ML 100 ML IV SCH (23:00)
[2017-07-10] MEDS: PIPERACILLIN/TAZO/PMX 3.375GM 50 ML IV SCH ×4 (01:04→18:41)
[2017-07-10] MEDS: KETOROLAC 30 MG/1 ML IVPush SCH ×4 (03:11→22:21)
[2017-07-10 04:00] VITALS: BP 160/88
[2017-07-10] MEDS: HYDROCORTISONE 100 MG INJ. IVPush SCH ×3 (04:34→20:09)
[2017-07-10 05:04] LABS: MEAN CORPUSCULAR HEMOGLOBIN 22.7 pg (27.0-34.8); MEAN CORPUSCULAR HGB CONC 30.5 g/dL (32.4-35.8); MEAN CORPUSCULAR VOLUME 74.3 fL (80-100); MEAN PLATELET VOLUME 8.9 fL (7.4-10.4); PLATELET COUNT 311 x10^3/uL (130-400); RED CELL DISTRIBUTION WIDTH 18.9 % (9.6-15.2)
[2017-07-10 05:15] LABS: CALCIUM 7.7 mg/dL (8.5-10.1); CHLORIDE 98 mmol/L (98-107)
[2017-07-10 05:20] LABS: ALANINE AMINOTRANSFERASE 33 U/L (12-78); ALBUMIN 2.5 g/dL (3.4-5.0); ALKALINE PHOSPHATASE 62 U/L (45-117); ANION GAP 6 mmol/L (5-15); BILIRUBIN,TOTAL 0.6 mg/dL (0.2-1.0); CREATININE 0.36 mg/dL (0.55-1.02); TOTAL PROTEIN 6.1 g/dL (6.4-8.2)
[2017-07-10 05:26] LABS: BASOPHILS % (AUTO) 0 % (0-1); EOSINOPHILS # (AUTO) 0.05 x10^3/uL (0-0.4); EOSINOPHILS % (AUTO) 0 % (1-7); LYMPHOCYTES # (AUTO) 0.63 x10^3/uL (1-3.4); LYMPHOCYTES % (AUTO) 3 % (22-44); MD SCAN; MONOCYTES # (AUTO) 0.25 x10^3/uL (0.2-0.8); MONOCYTES % (AUTO) 1 % (2-9); NEUTROPHILS # (AUTO) 22.13 x10^3/uL (1.8-6.8); NEUTROPHILS % (AUTO) 96 % (42-75)
[2017-07-10 06:58] LABS: TROPONIN I 0.126 ng/mL (0.000-0.045)
[2017-07-10 07:03] LABS: THYROID STIMULATING HORMONE 0.271 mIU/L (0.358-3.740)
[2017-07-10] MEDS ORDERED: POTASSIUM CHLORIDE 40 MEQ in SODIUM CHLORIDE 0.9% 500 ML IV ONE ×2 (07:30→19:00)
[2017-07-10] MEDS ORDERED: MORPHINE SULFATE 4 MG/ML, 1ML ONE (08:04)
[2017-07-10] MEDS: METOPROLOL TARTRATE 25 MG TABLET PO SCH ×2 (11:18→22:22)
[2017-07-10] MEDS: MORPHINE SULFATE 4 MG/ML, 1ML IVPush PRN (11:21)
[2017-07-10] MEDS: IRON SUCROSE COMPLEX 100MG/5ML IV SCH (11:21)
[2017-07-10] MEDS: SODIUM CHLORIDE FLUSH 10ML SYR IVF SCH ×2 (11:23→20:09)
[2017-07-10 12:22] LABS: TROPONIN I 0.114 ng/mL (0.000-0.045)
[2017-07-10] MEDS: NICOTINE 14MG/24 HR PATCH.TD24 TD SCH (19:00)
[2017-07-10] MEDS ORDERED: POTASSIUM CHLORIDE 10% 40 MEQ/30 ML UDC PO ONE (19:00)
[2017-07-10] MEDS: FLUCONAZOLE 200 MG/100 ML 100 ML IV SCH (22:22)
[2017-07-11] MEDS: PIPERACILLIN/TAZO/PMX 3.375GM 50 ML IV SCH ×4 (00:27→19:44)
[2017-07-11] MEDS: MORPHINE SULFATE 4 MG/ML, 1ML IVPush PRN ×6 (02:06→22:47)
[2017-07-11] MEDS: HYDROCORTISONE 100 MG INJ. IVPush SCH ×3 (04:13→19:44)
[2017-07-11 04:16] VITALS: BP 132/88
[2017-07-11] MEDS: KETOROLAC 30 MG/1 ML IVPush SCH ×3 (04:16→14:10)
[2017-07-11 04:41] LABS: BASOPHILS % (AUTO) 0 % (0-1); EOSINOPHILS % (AUTO) 0 % (1-7); LYMPHOCYTES # (AUTO) 0.67 x10^3/uL (1-3.4); LYMPHOCYTES % (AUTO) 4 % (22-44); MD NO; MEAN CORPUSCULAR HEMOGLOBIN 22.5 pg (27.0-34.8); MEAN CORPUSCULAR HGB CONC 30.3 g/dL (32.4-35.8); MEAN PLATELET VOLUME 8.2 fL (7.4-10.4); MONOCYTES # (AUTO) 0.58 x10^3/uL (0.2-0.8); MONOCYTES % (AUTO) 4 % (2-9); NEUTROPHILS # (AUTO) 14.26 x10^3/uL (1.8-6.8); NEUTROPHILS % (AUTO) 92 % (42-75); PLATELET COUNT 410 x10^3/uL (130-400); RED BLOOD COUNT 4.18 x10^6/uL (3.82-5.3); RED CELL DISTRIBUTION WIDTH 18.7 % (9.6-15.2)
[2017-07-11 04:57] LABS: ANION GAP 3 mmol/L (5-15); CHLORIDE 103 mmol/L (98-107)
[2017-07-11 05:02] LABS: ALANINE AMINOTRANSFERASE 30 U/L (12-78); ALKALINE PHOSPHATASE 60 U/L (45-117); BILIRUBIN,TOTAL 0.6 mg/dL (0.2-1.0); CALCIUM 7.8 mg/dL (8.5-10.1); CREATININE 0.53 mg/dL (0.55-1.02); TOTAL PROTEIN 5.5 g/dL (6.4-8.2)
[2017-07-11] MEDS: METOPROLOL TARTRATE 25 MG TABLET PO SCH ×2 (08:42→19:44)
[2017-07-11] MEDS: SODIUM CHLORIDE FLUSH 10ML SYR IVF SCH ×2 (08:42→19:45)
[2017-07-11] MEDS: IRON SUCROSE COMPLEX 100MG/5ML IV SCH (08:42)
[2017-07-11] MEDS ORDERED: SODIUM PHOSPHATE 40 MEQ in SODIUM CHLORIDE 0.9% 500 ML IV ONE (09:00)
[2017-07-11] MEDS: FLUTICASONE/VILANTEROL 200-25MCG/INH INH SCH (12:00)
[2017-07-11] MEDS: NICOTINE 14MG/24 HR PATCH.TD24 TD SCH (19:00)
[2017-07-11] MEDS: FLUCONAZOLE 200 MG/100 ML 100 ML IV SCH (22:49)
[2017-07-12] MEDS: PIPERACILLIN/TAZO/PMX 3.375GM 50 ML IV SCH ×4 (00:51→20:01)
[2017-07-12] MEDS: MORPHINE SULFATE 4 MG/ML, 1ML IVPush PRN ×7 (02:03→21:31)
[2017-07-12] MEDS: HYDROCORTISONE 100 MG INJ. IVPush SCH ×3 (04:13→20:02)
[2017-07-12 04:20] VITALS: BP 132/84
[2017-07-12 04:37] LABS: BASOPHILS % (AUTO) 0 % (0-1); EOSINOPHILS # (AUTO) 0.01 x10^3/uL (0-0.4); EOSINOPHILS % (AUTO) 0 % (1-7); LYMPHOCYTES # (AUTO) 0.91 x10^3/uL (1-3.4); LYMPHOCYTES % (AUTO) 6 % (22-44); MD NO; MEAN CORPUSCULAR HEMOGLOBIN 22.5 pg (27.0-34.8); MEAN CORPUSCULAR HGB CONC 30.4 g/dL (32.4-35.8); MEAN CORPUSCULAR VOLUME 74.1 fL (80-100); MEAN PLATELET VOLUME 8.2 fL (7.4-10.4); MONOCYTES # (AUTO) 1.04 x10^3/uL (0.2-0.8); MONOCYTES % (AUTO) 7 % (2-9); NEUTROPHILS # (AUTO) 13.07 x10^3/uL (1.8-6.8); NEUTROPHILS % (AUTO) 87 % (42-75); PLATELET COUNT 495 x10^3/uL (130-400); RED CELL DISTRIBUTION WIDTH 18.8 % (9.6-15.2)
[2017-07-12 04:38] LABS: ALANINE AMINOTRANSFERASE 25 U/L (12-78); ALBUMIN 2.2 g/dL (3.4-5.0); ANION GAP 6 mmol/L (5-15); CALCIUM 7.8 mg/dL (8.5-10.1); CHLORIDE 101 mmol/L (98-107)
[2017-07-12 04:40] LABS: ALKALINE PHOSPHATASE 51 U/L (45-117); BILIRUBIN,TOTAL 0.5 mg/dL (0.2-1.0); TOTAL PROTEIN 5.4 g/dL (6.4-8.2)
[2017-07-12] MEDS: METOPROLOL TARTRATE 25 MG TABLET PO SCH ×2 (09:00→20:02)
[2017-07-12] MEDS: IRON SUCROSE COMPLEX 100MG/5ML IV SCH (09:00)
[2017-07-12] MEDS ORDERED: MAGNESIUM SULFATE PMX 2GM/50ML 50 ML IVPB ONE (09:00)
[2017-07-12] MEDS: SODIUM CHLORIDE FLUSH 10ML SYR IVF SCH ×2 (09:01→20:03)
[2017-07-12] MEDS: VENLAFAXINE 75 MG CAP ER PO SCH (09:01)
[2017-07-12] MEDS: FLUTICASONE/VILANTEROL 200-25MCG/INH INH SCH (09:01)
[2017-07-12] MEDS ORDERED: SODIUM PHOSPHATE 20 MEQ in SODIUM CHLORIDE 0.9% 250 ML IV ONE (09:30)
[2017-07-12] MEDS ORDERED: FUROSEMIDE 40 MG/4 ML IV ONE (13:00)
[2017-07-12] MEDS: PYRIDOSTIGMINE 60 MG TABLET PO SCH ×3 (15:03→20:03)
[2017-07-12] MEDS: NICOTINE 14MG/24 HR PATCH.TD24 TD SCH (19:00)
[2017-07-12] MEDS: FLUCONAZOLE 200 MG/100 ML 100 ML IV SCH (23:12)
[2017-07-13] MEDS: PIPERACILLIN/TAZO/PMX 3.375GM 50 ML IV SCH ×4 (01:16→19:46)
[2017-07-13] MEDS: MORPHINE SULFATE 4 MG/ML, 1ML IVPush PRN ×8 (01:16→20:48)
[2017-07-13] MEDS: HYDROCORTISONE 100 MG INJ. IVPush SCH ×3 (04:15→19:46)
[2017-07-13 05:10] LABS: BASOPHILS % (AUTO) 0 % (0-1); EOSINOPHILS # (AUTO) 0.31 x10^3/uL (0-0.4); EOSINOPHILS % (AUTO) 2 % (1-7); LYMPHOCYTES # (AUTO) 0.85 x10^3/uL (1-3.4); LYMPHOCYTES % (AUTO) 6 % (22-44); MD NO; MEAN CORPUSCULAR HEMOGLOBIN 22.9 pg (27.0-34.8); MEAN CORPUSCULAR HGB CONC 30.3 g/dL (32.4-35.8); MEAN CORPUSCULAR VOLUME 75.3 fL (80-100); MEAN PLATELET VOLUME 8.3 fL (7.4-10.4); MONOCYTES # (AUTO) 1.17 x10^3/uL (0.2-0.8); MONOCYTES % (AUTO) 8 % (2-9); NEUTROPHILS # (AUTO) 12.36 x10^3/uL (1.8-6.8); NEUTROPHILS % (AUTO) 84 % (42-75); PLATELET COUNT 515 x10^3/uL (130-400); RED BLOOD COUNT 3.72 x10^6/uL (3.82-5.3); RED CELL DISTRIBUTION WIDTH 18.9 % (9.6-15.2)
[2017-07-13 05:22] LABS: CHLORIDE 102 mmol/L (98-107)
[2017-07-13 05:35] LABS: ALANINE AMINOTRANSFERASE 26 U/L (12-78); ALBUMIN 2.2 g/dL (3.4-5.0); ALKALINE PHOSPHATASE 53 U/L (45-117); ANION GAP 6 mmol/L (5-15); BILIRUBIN,TOTAL 0.3 mg/dL (0.2-1.0); CALCIUM 8.4 mg/dL (8.5-10.1); CREATININE 0.43 mg/dL (0.55-1.02); TOTAL PROTEIN 5.5 g/dL (6.4-8.2)
[2017-07-13] MEDS ORDERED: FUROSEMIDE 40 MG/4 ML IV ONE (09:00)
[2017-07-13] MEDS ORDERED: morphine SULFATE 60 MG TABLET.ER PO SCH (10:00)
[2017-07-13] MEDS: VENLAFAXINE 75 MG CAP ER PO SCH (10:08)
[2017-07-13] MEDS: PYRIDOSTIGMINE 60 MG TABLET PO SCH ×3 (10:08→19:46)
[2017-07-13] MEDS: FLUTICASONE/VILANTEROL 200-25MCG/INH INH SCH (10:09)
[2017-07-13] MEDS: METOPROLOL TARTRATE 25 MG TABLET PO SCH ×2 (10:09→19:46)
[2017-07-13] MEDS: IRON SUCROSE COMPLEX 100MG/5ML IV SCH (10:10)
[2017-07-13] MEDS: SODIUM CHLORIDE FLUSH 10ML SYR IVF SCH ×2 (10:20→19:46)
[2017-07-13] MEDS: OMEPRAZOLE 20 MG CAPSULE.DR PO SCH (10:42)
[2017-07-13] MEDS: MICAFUNGIN 100 MG in SODIUM CHLORIDE 0.9% 100 ML IV SCH (12:35)
[2017-07-13] MEDS: NICOTINE 14MG/24 HR PATCH.TD24 TD SCH (19:00)
[2017-07-14] MEDS: MORPHINE SULFATE 4 MG/ML, 1ML IVPush PRN ×3 (00:50→08:00)
[2017-07-14] MEDS: PIPERACILLIN/TAZO/PMX 3.375GM 50 ML IV SCH ×4 (00:50→20:23)
[2017-07-14 04:21] LABS: BASOPHILS % (AUTO) 0 % (0-1); EOSINOPHILS # (AUTO) 0.28 x10^3/uL (0-0.4); EOSINOPHILS % (AUTO) 2 % (1-7); LYMPHOCYTES % (AUTO) 5 % (22-44); MD NO; MEAN CORPUSCULAR HEMOGLOBIN 23.2 pg (27.0-34.8); MEAN CORPUSCULAR HGB CONC 30.2 g/dL (32.4-35.8); MEAN CORPUSCULAR VOLUME 76.8 fL (80-100); MEAN PLATELET VOLUME 8.2 fL (7.4-10.4); MONOCYTES # (AUTO) 1.03 x10^3/uL (0.2-0.8); MONOCYTES % (AUTO) 6 % (2-9); NEUTROPHILS # (AUTO) 14.97 x10^3/uL (1.8-6.8); NEUTROPHILS % (AUTO) 87 % (42-75); PLATELET COUNT 566 x10^3/uL (130-400); RED CELL DISTRIBUTION WIDTH 18.5 % (9.6-15.2)
[2017-07-14] MEDS: HYDROCORTISONE 100 MG INJ. IVPush SCH ×3 (04:28→18:01)
[2017-07-14 04:33] LABS: ALANINE AMINOTRANSFERASE 20 U/L (12-78); ALBUMIN 2.1 g/dL (3.4-5.0); ANION GAP 4 mmol/L (5-15); CALCIUM 8.4 mg/dL (8.5-10.1); CHLORIDE 101 mmol/L (98-107); CREATININE 0.43 mg/dL (0.55-1.02)
[2017-07-14 04:35] LABS: ALKALINE PHOSPHATASE 51 U/L (45-117); BILIRUBIN,TOTAL 0.3 mg/dL (0.2-1.0); TOTAL PROTEIN 5.4 g/dL (6.4-8.2)
[2017-07-14] MEDS: OMEPRAZOLE 20 MG CAPSULE.DR PO SCH (08:36)
[2017-07-14] MEDS: IRON SUCROSE COMPLEX 100MG/5ML IV SCH (08:37)
[2017-07-14] MEDS: VENLAFAXINE 75 MG CAP ER PO SCH (08:37)
[2017-07-14] MEDS: METOPROLOL TARTRATE 25 MG TABLET PO SCH ×2 (08:37→20:24)
[2017-07-14] MEDS: FLUTICASONE/VILANTEROL 200-25MCG/INH INH SCH (08:37)
[2017-07-14] MEDS: PYRIDOSTIGMINE 60 MG TABLET PO SCH ×3 (08:37→20:24)
[2017-07-14] MEDS: SODIUM CHLORIDE FLUSH 10ML SYR IVF SCH ×2 (11:47→20:24)
[2017-07-14] MEDS: MICAFUNGIN 100 MG in SODIUM CHLORIDE 0.9% 100 ML IV SCH (11:47)
[2017-07-14] MEDS: FUROSEMIDE 40 MG/4 ML IV SCH ×3 (11:47→20:45)
[2017-07-14] MEDS: OXYcodone/APAP 10/325MG TABLET PO PRN ×2 (13:23→20:24)
[2017-07-14] MEDS ORDERED: OMNIPAQUE 350 MG/ML, 100ML BOTTLE ONE (15:28)
[2017-07-14] MEDS: NICOTINE 14MG/24 HR PATCH.TD24 TD SCH (18:02)
[2017-07-14 18:18] VITALS: BP 107/56
[2017-07-14 20:25] VITALS: BP 123/74
[2017-07-15] MEDS: PIPERACILLIN/TAZO/PMX 3.375GM 50 ML IV SCH ×4 (02:06→21:30)
[2017-07-15] MEDS: OXYcodone/APAP 10/325MG TABLET PO PRN ×3 (02:10→14:46)
[2017-07-15 03:08] VITALS: BP 123/75
[2017-07-15 05:07] LABS: BASOPHILS # (AUTO) 0.02 x10^3/uL (0-0.1); BASOPHILS % (AUTO) 0 % (0-1); EOSINOPHILS # (AUTO) 0.05 x10^3/uL (0-0.4); EOSINOPHILS % (AUTO) 0 % (1-7); LYMPHOCYTES # (AUTO) 1.18 x10^3/uL (1-3.4); LYMPHOCYTES % (AUTO) 7 % (22-44); MD NO; MEAN CORPUSCULAR HEMOGLOBIN 23.7 pg (27.0-34.8); MEAN CORPUSCULAR HGB CONC 30.4 g/dL (32.4-35.8); MEAN PLATELET VOLUME 7.9 fL (7.4-10.4); MONOCYTES # (AUTO) 0.93 x10^3/uL (0.2-0.8); MONOCYTES % (AUTO) 6 % (2-9); NEUTROPHILS # (AUTO) 14.04 x10^3/uL (1.8-6.8); NEUTROPHILS % (AUTO) 87 % (42-75); PLATELET COUNT 602 x10^3/uL (130-400); RED BLOOD COUNT 3.88 x10^6/uL (3.82-5.3)
[2017-07-15 05:24] LABS: ANION GAP 5 mmol/L (5-15); CALCIUM 8.7 mg/dL (8.5-10.1); CHLORIDE 103 mmol/L (98-107)
[2017-07-15 05:26] LABS: CREATININE 0.37 mg/dL (0.55-1.02)
[2017-07-15 07:00] VITALS: BP 116/74
[2017-07-15] MEDS: FLUTICASONE/VILANTEROL 200-25MCG/INH INH SCH (08:26)
[2017-07-15] MEDS: OMEPRAZOLE 20 MG CAPSULE.DR PO SCH (08:26)
[2017-07-15] MEDS: VENLAFAXINE 75 MG CAP ER PO SCH (08:27)
[2017-07-15] MEDS: IRON SUCROSE COMPLEX 100MG/5ML IV SCH (08:27)
[2017-07-15] MEDS: PYRIDOSTIGMINE 60 MG TABLET PO SCH ×3 (08:27→21:30)
[2017-07-15] MEDS: METOPROLOL TARTRATE 25 MG TABLET PO SCH ×2 (08:27→21:31)
[2017-07-15] MEDS: MORPHINE SULFATE 4 MG/ML, 1ML IVPush PRN ×4 (08:31→21:44)
[2017-07-15] MEDS: SODIUM CHLORIDE FLUSH 10ML SYR IVF SCH ×2 (09:00→21:31)
[2017-07-15 12:10] VITALS: BP 107/69
[2017-07-15] MEDS: MICAFUNGIN 100 MG in SODIUM CHLORIDE 0.9% 100 ML IV SCH (12:22)
[2017-07-15] MEDS: NICOTINE 14MG/24 HR PATCH.TD24 TD SCH (16:40)
[2017-07-15 21:36] VITALS: BP 119/72
[2017-07-16] MEDS: MORPHINE SULFATE 4 MG/ML, 1ML IVPush PRN ×3 (02:45→18:02)
[2017-07-16] MEDS: PIPERACILLIN/TAZO/PMX 3.375GM 50 ML IV SCH ×3 (02:45→21:39)
[2017-07-16 07:24] VITALS: BP 164/85
[2017-07-16] MEDS: IRON SUCROSE COMPLEX 100MG/5ML IV SCH (09:17)
[2017-07-16] MEDS: PYRIDOSTIGMINE 60 MG TABLET PO SCH ×3 (09:17→22:31)
[2017-07-16] MEDS: FLUTICASONE/VILANTEROL 200-25MCG/INH INH SCH (09:17)
[2017-07-16] MEDS: VENLAFAXINE 75 MG CAP ER PO SCH (09:18)
[2017-07-16] MEDS: OMEPRAZOLE 20 MG CAPSULE.DR PO SCH (09:18)
[2017-07-16] MEDS: METOPROLOL TARTRATE 25 MG TABLET PO SCH ×2 (09:18→22:31)
[2017-07-16] MEDS: SODIUM CHLORIDE FLUSH 10ML SYR IVF SCH ×2 (09:19→22:31)
[2017-07-16] MEDS: OXYcodone/APAP 10/325MG TABLET PO PRN ×2 (12:17→21:38)
[2017-07-16 12:18] VITALS: BP 122/70
[2017-07-16] MEDS: ONDANSETRON 2MG/ML, 2ML IVPush PRN (12:19)
[2017-07-16] MEDS: MICAFUNGIN 100 MG in SODIUM CHLORIDE 0.9% 100 ML IV SCH (18:02)
[2017-07-16] MEDS: NICOTINE 14MG/24 HR PATCH.TD24 TD SCH (19:00)
[2017-07-16 19:31] VITALS: BP 123/76
[2017-07-17 02:39] VITALS: BP 123/78
[2017-07-17] MEDS: PIPERACILLIN/TAZO/PMX 3.375GM 50 ML IV SCH ×4 (03:08→20:30)
[2017-07-17] MEDS: OXYcodone/APAP 10/325MG TABLET PO PRN ×3 (03:13→20:32)
[2017-07-17 06:17] LABS: MEAN CORPUSCULAR HEMOGLOBIN 24.2 pg (27.0-34.8); MEAN CORPUSCULAR HGB CONC 30.7 g/dL (32.4-35.8); MEAN CORPUSCULAR VOLUME 78.7 fL (80-100); MEAN PLATELET VOLUME 7.7 fL (7.4-10.4); PLATELET COUNT 653 x10^3/uL (130-400); RED BLOOD COUNT 3.96 x10^6/uL (3.82-5.3); RED CELL DISTRIBUTION WIDTH 24.8 % (9.6-15.2)
[2017-07-17 06:25] LABS: ANION GAP 6 mmol/L (5-15); CALCIUM 8.9 mg/dL (8.5-10.1); CHLORIDE 107 mmol/L (98-107); CREATININE 0.49 mg/dL (0.55-1.02)
[2017-07-17 06:29] LABS: BASOPHILS # (AUTO) 0.01 x10^3/uL (0-0.1); BASOPHILS % (AUTO) 0 % (0-1); EOSINOPHILS # (AUTO) 0.03 x10^3/uL (0-0.4); EOSINOPHILS % (AUTO) 0 % (1-7); LYMPHOCYTES # (AUTO) 1.07 x10^3/uL (1-3.4); LYMPHOCYTES % (AUTO) 8 % (22-44); MD SCAN; MONOCYTES # (AUTO) 1.07 x10^3/uL (0.2-0.8); MONOCYTES % (AUTO) 8 % (2-9); NEUTROPHILS # (AUTO) 11.24 x10^3/uL (1.8-6.8); NEUTROPHILS % (AUTO) 84 % (42-75)
[2017-07-17 07:57] VITALS: BP 144/87
[2017-07-17] MEDS: IRON SUCROSE COMPLEX 100MG/5ML IV SCH (09:38)
[2017-07-17] MEDS: FLUTICASONE/VILANTEROL 200-25MCG/INH INH SCH (09:39)
[2017-07-17] MEDS: SODIUM CHLORIDE FLUSH 10ML SYR IVF SCH ×2 (09:39→20:30)
[2017-07-17] MEDS: METOPROLOL TARTRATE 25 MG TABLET PO SCH ×2 (09:39→20:32)
[2017-07-17] MEDS: OMEPRAZOLE 20 MG CAPSULE.DR PO SCH (09:39)
[2017-07-17] MEDS: PYRIDOSTIGMINE 60 MG TABLET PO SCH ×3 (09:39→20:32)
[2017-07-17] MEDS: VENLAFAXINE 75 MG CAP ER PO SCH (09:40)
[2017-07-17] MEDS: MORPHINE SULFATE 4 MG/ML, 1ML IVPush PRN (11:53)
[2017-07-17 12:59] VITALS: BP 111/72
[2017-07-17] MEDS: NICOTINE 14MG/24 HR PATCH.TD24 TD SCH (15:31)
[2017-07-17] MEDS: MICAFUNGIN 100 MG in SODIUM CHLORIDE 0.9% 100 ML IV SCH (17:51)
[2017-07-17 18:48] VITALS: BP 125/77
[2017-07-18] MEDS: PIPERACILLIN/TAZO/PMX 3.375GM 50 ML IV SCH ×4 (03:24→21:05)
[2017-07-18 04:41] VITALS: BP 156/80
[2017-07-18 06:02] LABS: MEAN CORPUSCULAR HEMOGLOBIN 24.2 pg (27.0-34.8); MEAN CORPUSCULAR HGB CONC 30.3 g/dL (32.4-35.8); MEAN CORPUSCULAR VOLUME 79.7 fL (80-100); MEAN PLATELET VOLUME 7.7 fL (7.4-10.4); PLATELET COUNT 654 x10^3/uL (130-400); RED BLOOD COUNT 4.18 x10^6/uL (3.82-5.3); RED CELL DISTRIBUTION WIDTH 27.2 % (9.6-15.2)
[2017-07-18 06:44] LABS: MD YES
[2017-07-18 06:46] LABS: BAND#(MANUAL) 0.55 x10^3/uL; BANDS%(MANUAL) 4 % (0-7); LYMPH#(MANUAL) 0.96 x10^3/uL (1-3.4); LYMPHS% (MANUAL) 7 % (22-44); METAMYELOCYTES# (MANUAL) 0.14 x10^3/uL (0-0); METAMYELOCYTES% (MANUAL) 1 % (0-1); MONOS#(MANUAL) 0.82 x10^3/uL (0.3-2.7); MONOS% (MANUAL) 6 % (2-9); MYELOCYTES# (MANUAL) 0.14 x10^3/uL (0-0); MYELOCYTES% (MANUAL) 1 % (0-0); SEGS% (MANUAL) 81 % (42-75)
[2017-07-18 06:48] LABS: <PLATELET ESTIMATE> INCREASED; <PLT MORPHOLOGY> NORMAL PLT MORPH; ANISOCYTOSIS 1+; HYPOCHROMIA 1+; MICROCYTOSIS 1+; OVALOCYTES 1+; POLYCHROMASIA 1+
[2017-07-18 08:08] VITALS: BP 145/78
[2017-07-18] MEDS: FLUTICASONE/VILANTEROL 200-25MCG/INH INH SCH (09:32)
[2017-07-18] MEDS: OMEPRAZOLE 20 MG CAPSULE.DR PO SCH (09:32)
[2017-07-18] MEDS: METOPROLOL TARTRATE 25 MG TABLET PO SCH ×2 (09:32→21:05)
[2017-07-18] MEDS: PYRIDOSTIGMINE 60 MG TABLET PO SCH ×3 (09:32→21:05)
[2017-07-18] MEDS: SODIUM CHLORIDE FLUSH 10ML SYR IVF SCH ×2 (09:32→21:07)
[2017-07-18] MEDS: VENLAFAXINE 75 MG CAP ER PO SCH (09:32)
[2017-07-18] MEDS: IRON SUCROSE COMPLEX 100MG/5ML IV SCH (09:32)
[2017-07-18] MEDS: OXYcodone/APAP 10/325MG TABLET PO PRN ×2 (10:07→21:05)
[2017-07-18 13:20] VITALS: BP 108/68
[2017-07-18] MEDS: NICOTINE 14MG/24 HR PATCH.TD24 TD SCH (15:10)
[2017-07-18] MEDS: MORPHINE SULFATE 4 MG/ML, 1ML IVPush PRN (15:16)
[2017-07-18] MEDS: MICAFUNGIN 100 MG in SODIUM CHLORIDE 0.9% 100 ML IV SCH (18:20)
[2017-07-18] MEDS ORDERED: maalox/diphenh/lido/sucralfate 5 ML PO PRN (20:00)
[2017-07-18 20:56] VITALS: BP 158/83
[2017-07-19 03:00] VITALS: BP 130/76
[2017-07-19] MEDS: PIPERACILLIN/TAZO/PMX 3.375GM 50 ML IV SCH ×4 (03:45→21:09)
[2017-07-19 06:13] LABS: MEAN CORPUSCULAR HEMOGLOBIN 24.3 pg (27.0-34.8); MEAN CORPUSCULAR HGB CONC 30.6 g/dL (32.4-35.8); MEAN CORPUSCULAR VOLUME 79.6 fL (80-100); MEAN PLATELET VOLUME 7.7 fL (7.4-10.4); PLATELET COUNT 583 x10^3/uL (130-400); RED BLOOD COUNT 4.07 x10^6/uL (3.82-5.3); RED CELL DISTRIBUTION WIDTH 26.4 % (9.6-15.2)
[2017-07-19 06:24] LABS: ANION GAP 4 mmol/L (5-15); CALCIUM 8.6 mg/dL (8.5-10.1); CHLORIDE 109 mmol/L (98-107); CREATININE 0.46 mg/dL (0.55-1.02)
[2017-07-19 06:50] LABS: MD YES
[2017-07-19 06:53] LABS: LYMPH#(MANUAL) 0.97 x10^3/uL (1-3.4); LYMPHS% (MANUAL) 7 % (22-44); MONOS#(MANUAL) 0.42 x10^3/uL (0.3-2.7); MONOS% (MANUAL) 3 % (2-9); NRBC % (MANUAL) 1 % (0-1); SEG#(MANUAL) 12.51 x10^3/uL (1.8-6.8); SEGS% (MANUAL) 90 % (42-75)
[2017-07-19 06:54] LABS: ANISOCYTOSIS 1+; MICROCYTOSIS 1+; POLYCHROMASIA 1+
[2017-07-19 06:55] LABS: <PLATELET ESTIMATE> INCREASED; <PLT MORPHOLOGY> NORMAL PLT MORPH; HYPOCHROMIA 1+; OVALOCYTES 1+
[2017-07-19 07:02] VITALS: BP 126/70
[2017-07-19] MEDS: METOPROLOL TARTRATE 25 MG TABLET PO SCH ×2 (08:46→21:09)
[2017-07-19] MEDS: IRON SUCROSE COMPLEX 100MG/5ML IV SCH (08:46)
[2017-07-19] MEDS: PYRIDOSTIGMINE 60 MG TABLET PO SCH ×3 (08:46→21:46)
[2017-07-19] MEDS: FLUTICASONE/VILANTEROL 200-25MCG/INH INH SCH ×2 (08:46→13:09)
[2017-07-19] MEDS: OMEPRAZOLE 20 MG CAPSULE.DR PO SCH (08:46)
[2017-07-19] MEDS: VENLAFAXINE 75 MG CAP ER PO SCH (08:46)
[2017-07-19] MEDS: SODIUM CHLORIDE FLUSH 10ML SYR IVF SCH ×2 (08:47→21:00)
[2017-07-19] MEDS: OXYcodone/APAP 10/325MG TABLET PO PRN ×3 (08:56→23:58)
[2017-07-19 12:35] VITALS: BP 119/63
[2017-07-19] MEDS ORDERED: FUROSEMIDE 20 MG/2 ML IV ONE (13:00)
[2017-07-19] MEDS: MORPHINE SULFATE 4 MG/ML, 1ML IVPush PRN ×2 (17:39→21:09)
[2017-07-19] MEDS: MICAFUNGIN 100 MG in SODIUM CHLORIDE 0.9% 100 ML IV SCH (17:39)
[2017-07-19] MEDS: NICOTINE 14MG/24 HR PATCH.TD24 TD SCH (19:00)
[2017-07-19 19:20] VITALS: BP 146/84
[2017-07-20 03:08] VITALS: BP 108/69
[2017-07-20] MEDS: PIPERACILLIN/TAZO/PMX 3.375GM 50 ML IV SCH ×4 (03:37→21:22)
[2017-07-20 06:15] LABS: MEAN CORPUSCULAR HEMOGLOBIN 24.3 pg (27.0-34.8); MEAN CORPUSCULAR HGB CONC 30.2 g/dL (32.4-35.8); MEAN CORPUSCULAR VOLUME 80.5 fL (80-100); MEAN PLATELET VOLUME 7.8 fL (7.4-10.4); PLATELET COUNT 595 x10^3/uL (130-400); RED BLOOD COUNT 4.27 x10^6/uL (3.82-5.3); RED CELL DISTRIBUTION WIDTH 27.6 % (9.6-15.2)
[2017-07-20 06:18] LABS: ALANINE AMINOTRANSFERASE 24 U/L (12-78); ALBUMIN 2.6 g/dL (3.4-5.0); ANION GAP 4 mmol/L (5-15); C-REACTIVE PROTEIN, QUANT 0.31 mg/dL (0.02-0.49); CALCIUM 8.9 mg/dL (8.5-10.1); CHLORIDE 106 mmol/L (98-107); CREATININE 0.52 mg/dL (0.55-1.02)
[2017-07-20 06:20] LABS: ALKALINE PHOSPHATASE 71 U/L (45-117); BILIRUBIN,TOTAL 0.2 mg/dL (0.2-1.0)
[2017-07-20 06:30] LABS: BASOPHILS # (AUTO) 0.01 x10^3/uL (0-0.1); BASOPHILS % (AUTO) 0 % (0-1); EOSINOPHILS # (AUTO) 0.42 x10^3/uL (0-0.4); EOSINOPHILS % (AUTO) 3 % (1-7); LYMPHOCYTES # (AUTO) 1.46 x10^3/uL (1-3.4); LYMPHOCYTES % (AUTO) 10 % (22-44); MD SCAN; MONOCYTES # (AUTO) 0.99 x10^3/uL (0.2-0.8); MONOCYTES % (AUTO) 7 % (2-9); NEUTROPHILS # (AUTO) 11.73 x10^3/uL (1.8-6.8); NEUTROPHILS % (AUTO) 80 % (42-75)
[2017-07-20 06:46] LABS: HCT (SEDRATE) 32.4 % (34.6-47.8)
[2017-07-20] MEDS: OMEPRAZOLE 20 MG CAPSULE.DR PO SCH (07:45)
[2017-07-20] MEDS: OXYcodone/APAP 10/325MG TABLET PO PRN ×2 (07:50→20:41)
[2017-07-20] MEDS: SODIUM CHLORIDE FLUSH 10ML SYR IVF SCH ×2 (09:00→21:22)
[2017-07-20] MEDS: FLUTICASONE/VILANTEROL 200-25MCG/INH INH SCH (09:00)
[2017-07-20 09:22] VITALS: BP 107/67
[2017-07-20] MEDS: IRON SUCROSE COMPLEX 100MG/5ML IV SCH (09:25)
[2017-07-20] MEDS: METOPROLOL TARTRATE 25 MG TABLET PO SCH ×2 (09:26→20:41)
[2017-07-20] MEDS: PYRIDOSTIGMINE 60 MG TABLET PO SCH ×3 (09:26→20:41)
[2017-07-20] MEDS: VENLAFAXINE 75 MG CAP ER PO SCH (09:26)
[2017-07-20] MEDS: MORPHINE SULFATE 4 MG/ML, 1ML IVPush PRN (15:04)
[2017-07-20 15:10] VITALS: BP 122/69
[2017-07-20] MEDS: MICAFUNGIN 100 MG in SODIUM CHLORIDE 0.9% 100 ML IV SCH (18:41)
[2017-07-20] MEDS: NICOTINE 14MG/24 HR PATCH.TD24 TD SCH (19:00)
[2017-07-20 19:25] VITALS: BP 128/84
[2017-07-21 02:50] VITALS: BP 111/72
[2017-07-21] MEDS: OXYcodone/APAP 10/325MG TABLET PO PRN ×4 (03:14→21:19)
[2017-07-21] MEDS: PIPERACILLIN/TAZO/PMX 3.375GM 50 ML IV SCH ×4 (03:14→21:16)
[2017-07-21 06:09] LABS: MEAN CORPUSCULAR HEMOGLOBIN 24.8 pg (27.0-34.8); MEAN CORPUSCULAR HGB CONC 30.4 g/dL (32.4-35.8); MEAN CORPUSCULAR VOLUME 81.7 fL (80-100); MEAN PLATELET VOLUME 8.1 fL (7.4-10.4); PLATELET COUNT 547 x10^3/uL (130-400); RED BLOOD COUNT 4.24 x10^6/uL (3.82-5.3)
[2017-07-21 06:32] LABS: BASOPHILS % (AUTO) 0 % (0-1); EOSINOPHILS # (AUTO) 0.12 x10^3/uL (0-0.4); EOSINOPHILS % (AUTO) 1 % (1-7); LYMPHOCYTES # (AUTO) 1.62 x10^3/uL (1-3.4); LYMPHOCYTES % (AUTO) 12 % (22-44); MD SCAN; MONOCYTES # (AUTO) 0.86 x10^3/uL (0.2-0.8); MONOCYTES % (AUTO) 7 % (2-9); NEUTROPHILS # (AUTO) 10.64 x10^3/uL (1.8-6.8); NEUTROPHILS % (AUTO) 80 % (42-75)
[2017-07-21 07:29] VITALS: BP 148/83
[2017-07-21] MEDS: OMEPRAZOLE 20 MG CAPSULE.DR PO SCH (07:48)
[2017-07-21] MEDS: FLUTICASONE/VILANTEROL 200-25MCG/INH INH SCH (09:00)
[2017-07-21] MEDS: SODIUM CHLORIDE FLUSH 10ML SYR IVF SCH ×2 (09:00→21:24)
[2017-07-21] MEDS: FUROSEMIDE 20 MG TABLET PO SCH (09:25)
[2017-07-21] MEDS: METOPROLOL TARTRATE 25 MG TABLET PO SCH ×2 (09:26→21:23)
[2017-07-21] MEDS: VENLAFAXINE 75 MG CAP ER PO SCH (09:26)
[2017-07-21] MEDS: IRON SUCROSE COMPLEX 100MG/5ML IV SCH (09:27)
[2017-07-21] MEDS: PYRIDOSTIGMINE 60 MG TABLET PO SCH ×3 (09:28→21:16)
[2017-07-21] MEDS: MORPHINE SULFATE 4 MG/ML, 1ML IVPush PRN (12:14)
[2017-07-21 15:09] VITALS: BP 122/81
[2017-07-21] MEDS: MICAFUNGIN 100 MG in SODIUM CHLORIDE 0.9% 100 ML IV SCH (18:37)
[2017-07-21 19:29] VITALS: BP 134/82
[2017-07-21] MEDS: NICOTINE 14MG/24 HR PATCH.TD24 TD SCH (21:16)
[2017-07-21 21:22] VITALS: BP 125/78
[2017-07-22] MEDS: MORPHINE SULFATE 4 MG/ML, 1ML IVPush PRN ×3 (01:10→20:09)
[2017-07-22 02:37] VITALS: BP 125/72
[2017-07-22] MEDS: PIPERACILLIN/TAZO/PMX 3.375GM 50 ML IV SCH ×4 (02:52→22:43)
[2017-07-22] MEDS: OMEPRAZOLE 20 MG CAPSULE.DR PO SCH (07:42)
[2017-07-22 07:54] VITALS: BP 150/91
[2017-07-22] MEDS: SODIUM CHLORIDE FLUSH 10ML SYR IVF SCH ×2 (09:00→20:07)
[2017-07-22] MEDS: FLUTICASONE/VILANTEROL 200-25MCG/INH INH SCH (09:00)
[2017-07-22] MEDS: VENLAFAXINE 75 MG CAP ER PO SCH (09:23)
[2017-07-22] MEDS: PYRIDOSTIGMINE 60 MG TABLET PO SCH ×3 (09:23→20:08)
[2017-07-22] MEDS: OXYcodone/APAP 10/325MG TABLET PO PRN (09:23)
[2017-07-22] MEDS: METOPROLOL TARTRATE 25 MG TABLET PO SCH ×2 (09:23→20:08)
[2017-07-22] MEDS: IRON SUCROSE COMPLEX 100MG/5ML IV SCH (09:30)
[2017-07-22 14:28] VITALS: BP 116/68
[2017-07-22] MEDS: MICAFUNGIN 100 MG in SODIUM CHLORIDE 0.9% 100 ML IV SCH (18:42)
[2017-07-22] MEDS: NICOTINE 14MG/24 HR PATCH.TD24 TD SCH (19:00)
[2017-07-22 20:00] VITALS: BP 136/80
[2017-07-23] MEDS: OXYcodone/APAP 10/325MG TABLET PO PRN ×3 (00:43→20:00)
[2017-07-23 02:00] VITALS: BP 125/77
[2017-07-23] MEDS: PIPERACILLIN/TAZO/PMX 3.375GM 50 ML IV SCH ×4 (05:06→23:26)
[2017-07-23 08:34] VITALS: BP 112/84
[2017-07-23] MEDS: FUROSEMIDE 20 MG TABLET PO SCH (09:04)
[2017-07-23] MEDS: FLUTICASONE/VILANTEROL 200-25MCG/INH INH SCH (09:04)
[2017-07-23] MEDS: VENLAFAXINE 75 MG CAP ER PO SCH (09:04)
[2017-07-23] MEDS: SODIUM CHLORIDE FLUSH 10ML SYR IVF SCH ×2 (09:05→20:55)
[2017-07-23] MEDS: OMEPRAZOLE 20 MG CAPSULE.DR PO SCH (09:05)
[2017-07-23] MEDS: PYRIDOSTIGMINE 60 MG TABLET PO SCH ×3 (09:05→20:55)
[2017-07-23] MEDS: IRON SUCROSE COMPLEX 100MG/5ML IV SCH (09:05)
[2017-07-23] MEDS: METOPROLOL TARTRATE 25 MG TABLET PO SCH ×2 (09:05→20:55)
[2017-07-23] MEDS: MORPHINE SULFATE 4 MG/ML, 1ML IVPush PRN ×2 (11:48→20:55)
[2017-07-23 14:30] VITALS: BP 123/79
[2017-07-23] MEDS: NICOTINE 14MG/24 HR PATCH.TD24 TD SCH (17:04)
[2017-07-23] MEDS: MICAFUNGIN 100 MG in SODIUM CHLORIDE 0.9% 100 ML IV SCH (18:31)
[2017-07-23 19:42] VITALS: BP 132/85
[2017-07-24 00:25] VITALS: BP 126/73
[2017-07-24] MEDS: MORPHINE SULFATE 4 MG/ML, 1ML IVPush PRN ×5 (02:57→23:03)
[2017-07-24] MEDS: PIPERACILLIN/TAZO/PMX 3.375GM 50 ML IV SCH ×4 (05:16→23:03)
[2017-07-24] MEDS: VENLAFAXINE 75 MG CAP ER PO SCH (08:29)
[2017-07-24] MEDS: OMEPRAZOLE 20 MG CAPSULE.DR PO SCH (08:29)
[2017-07-24] MEDS: SODIUM CHLORIDE FLUSH 10ML SYR IVF SCH ×2 (08:29→19:33)
[2017-07-24] MEDS: FLUTICASONE/VILANTEROL 200-25MCG/INH INH SCH (08:29)
[2017-07-24] MEDS: METOPROLOL TARTRATE 25 MG TABLET PO SCH ×2 (08:29→20:42)
[2017-07-24 08:30] VITALS: BP 129/85
[2017-07-24] MEDS: PYRIDOSTIGMINE 60 MG TABLET PO SCH ×3 (08:30→20:41)
[2017-07-24 14:26] VITALS: BP 120/73
[2017-07-24] MEDS: NICOTINE 14MG/24 HR PATCH.TD24 TD SCH (16:00)
[2017-07-24] MEDS: MICAFUNGIN 100 MG in SODIUM CHLORIDE 0.9% 100 ML IV SCH (17:38)
[2017-07-24 20:21] VITALS: BP 114/75
[2017-07-24] MEDS: OXYcodone/APAP 10/325MG TABLET PO PRN (20:42)
[2017-07-25 02:39] VITALS: BP 133/84
[2017-07-25] MEDS: OXYcodone/APAP 10/325MG TABLET PO PRN ×3 (02:44→23:54)
[2017-07-25] MEDS: PIPERACILLIN/TAZO/PMX 3.375GM 50 ML IV SCH ×4 (04:44→22:38)
[2017-07-25] MEDS: FLUTICASONE/VILANTEROL 200-25MCG/INH INH SCH (08:21)
[2017-07-25] MEDS: METOPROLOL TARTRATE 25 MG TABLET PO SCH ×2 (08:21→20:50)
[2017-07-25] MEDS: FUROSEMIDE 20 MG TABLET PO SCH (08:21)
[2017-07-25] MEDS: OMEPRAZOLE 20 MG CAPSULE.DR PO SCH (08:22)
[2017-07-25] MEDS: VENLAFAXINE 75 MG CAP ER PO SCH (08:22)
[2017-07-25] MEDS: SODIUM CHLORIDE FLUSH 10ML SYR IVF SCH ×2 (08:22→20:50)
[2017-07-25 08:24] VITALS: BP 119/82
[2017-07-25] MEDS: PYRIDOSTIGMINE 60 MG TABLET PO SCH ×3 (11:18→20:50)
[2017-07-25] MEDS ORDERED: OMNIPAQUE 350 MG/ML, 100ML BOTTLE ONE (14:06)
[2017-07-25] MEDS: MORPHINE SULFATE 4 MG/ML, 1ML IVPush PRN ×2 (14:20→20:50)
[2017-07-25 14:21] VITALS: BP 114/69
[2017-07-25] MEDS: NICOTINE 14MG/24 HR PATCH.TD24 TD SCH (18:28)
[2017-07-25] MEDS: MICAFUNGIN 100 MG in SODIUM CHLORIDE 0.9% 100 ML IV SCH (18:28)
[2017-07-25 20:43] VITALS: BP 119/80
[2017-07-26 01:38] VITALS: BP 119/72
[2017-07-26] MEDS: MORPHINE SULFATE 4 MG/ML, 1ML IVPush PRN ×3 (01:46→20:15)
[2017-07-26] MEDS: OXYcodone/APAP 10/325MG TABLET PO PRN ×3 (04:19→17:07)
[2017-07-26] MEDS: PIPERACILLIN/TAZO/PMX 3.375GM 50 ML IV SCH ×4 (04:43→22:42)
[2017-07-26] MEDS: SODIUM CHLORIDE FLUSH 10ML SYR IVF SCH ×2 (07:28→21:20)
[2017-07-26] MEDS: OMEPRAZOLE 20 MG CAPSULE.DR PO SCH (07:28)
[2017-07-26] MEDS: FLUTICASONE/VILANTEROL 200-25MCG/INH INH SCH ×2 (07:28→08:39)
[2017-07-26] MEDS: METOPROLOL TARTRATE 25 MG TABLET PO SCH ×2 (07:28→21:19)
[2017-07-26] MEDS: VENLAFAXINE 75 MG CAP ER PO SCH (07:29)
[2017-07-26 08:00] VITALS: BP 119/77
[2017-07-26] MEDS: PYRIDOSTIGMINE 60 MG TABLET PO SCH ×3 (08:39→21:19)
[2017-07-26 14:00] VITALS: BP 117/68
[2017-07-26] MEDS: NICOTINE 14MG/24 HR PATCH.TD24 TD SCH (17:38)
[2017-07-26] MEDS: MICAFUNGIN 100 MG in SODIUM CHLORIDE 0.9% 100 ML IV SCH (17:53)
[2017-07-26 20:06] VITALS: BP 147/91
[2017-07-27 01:55] VITALS: BP 144/82
[2017-07-27] MEDS: OXYcodone/APAP 10/325MG TABLET PO PRN ×3 (01:55→21:43)
[2017-07-27] MEDS: PIPERACILLIN/TAZO/PMX 3.375GM 50 ML IV SCH ×3 (04:50→17:24)
[2017-07-27 05:10] LABS: MEAN CORPUSCULAR HEMOGLOBIN 25.8 pg (27.0-34.8); MEAN CORPUSCULAR HGB CONC 30.9 g/dL (32.4-35.8); MEAN CORPUSCULAR VOLUME 83.6 fL (80-100); MEAN PLATELET VOLUME 8.1 fL (7.4-10.4); PLATELET COUNT 334 x10^3/uL (130-400); RED BLOOD COUNT 4.42 x10^6/uL (3.82-5.3); RED CELL DISTRIBUTION WIDTH 30.1 % (9.6-15.2)
[2017-07-27 05:12] LABS: ALANINE AMINOTRANSFERASE 28 U/L (12-78); ALBUMIN 2.8 g/dL (3.4-5.0); ANION GAP 4 mmol/L (5-15); CALCIUM 8.8 mg/dL (8.5-10.1); CHLORIDE 109 mmol/L (98-107); CREATININE 0.46 mg/dL (0.55-1.02)
[2017-07-27 05:14] LABS: ALKALINE PHOSPHATASE 62 U/L (45-117); BILIRUBIN,TOTAL 0.2 mg/dL (0.2-1.0); C-REACTIVE PROTEIN, QUANT 0.06 mg/dL (0.02-0.49); TOTAL PROTEIN 5.9 g/dL (6.4-8.2)
[2017-07-27 05:38] LABS: BASOPHILS % (AUTO) 0 % (0-1); EOSINOPHILS # (AUTO) 0.05 x10^3/uL (0-0.4); EOSINOPHILS % (AUTO) 0 % (1-7); LYMPHOCYTES # (AUTO) 1.62 x10^3/uL (1-3.4); LYMPHOCYTES % (AUTO) 13 % (22-44); MONOCYTES # (AUTO) 0.96 x10^3/uL (0.2-0.8); MONOCYTES % (AUTO) 8 % (2-9); NEUTROPHILS # (AUTO) 9.92 x10^3/uL (1.8-6.8); NEUTROPHILS % (AUTO) 79 % (42-75)
[2017-07-27 06:30] LABS: HCT (SEDRATE) 34.6 % (34.6-47.8)
[2017-07-27 06:34] LABS: MD SCAN
[2017-07-27 07:48] VITALS: BP 131/75
[2017-07-27] MEDS: OMEPRAZOLE 20 MG CAPSULE.DR PO SCH (08:17)
[2017-07-27] MEDS: PYRIDOSTIGMINE 60 MG TABLET PO SCH ×3 (08:17→21:43)
[2017-07-27] MEDS: MORPHINE SULFATE 4 MG/ML, 1ML IVPush PRN ×3 (08:17→18:41)
[2017-07-27] MEDS: METOPROLOL TARTRATE 25 MG TABLET PO SCH ×2 (08:17→21:43)
[2017-07-27] MEDS: VENLAFAXINE 75 MG CAP ER PO SCH (08:17)
[2017-07-27] MEDS: FUROSEMIDE 20 MG TABLET PO SCH (08:17)
[2017-07-27] MEDS: FLUTICASONE/VILANTEROL 200-25MCG/INH INH SCH (08:17)
[2017-07-27] MEDS: SODIUM CHLORIDE FLUSH 10ML SYR IVF SCH ×2 (08:18→21:00)
[2017-07-27 14:50] VITALS: BP 123/73
[2017-07-27] MEDS: MICAFUNGIN 100 MG in SODIUM CHLORIDE 0.9% 100 ML IV SCH (18:17)
[2017-07-27] MEDS: NICOTINE 14MG/24 HR PATCH.TD24 TD SCH (19:00)
[2017-07-27 19:53] VITALS: BP 138/87
[2017-07-28] MEDS: PIPERACILLIN/TAZO/PMX 3.375GM 50 ML IV SCH ×5 (00:07→22:42)
[2017-07-28 02:31] VITALS: BP 150/87
[2017-07-28 07:14] VITALS: BP 148/90
[2017-07-28] MEDS: PYRIDOSTIGMINE 60 MG TABLET PO SCH ×3 (08:51→20:48)
[2017-07-28] MEDS: FLUTICASONE/VILANTEROL 200-25MCG/INH INH SCH (08:51)
[2017-07-28] MEDS: OMEPRAZOLE 20 MG CAPSULE.DR PO SCH (08:51)
[2017-07-28] MEDS: VENLAFAXINE 75 MG CAP ER PO SCH (08:51)
[2017-07-28] MEDS: METOPROLOL TARTRATE 25 MG TABLET PO SCH ×2 (08:51→20:50)
[2017-07-28] MEDS: SODIUM CHLORIDE FLUSH 10ML SYR IVF SCH ×2 (08:52→20:50)
[2017-07-28 12:52] VITALS: BP 127/85
[2017-07-28] MEDS: OXYcodone/APAP 10/325MG TABLET PO PRN ×2 (14:05→22:46)
[2017-07-28] MEDS: NICOTINE 14MG/24 HR PATCH.TD24 TD SCH (19:00)
[2017-07-28 19:08] VITALS: BP 127/79
[2017-07-28] MEDS: MORPHINE SULFATE 4 MG/ML, 1ML IVPush PRN (20:49)
[2017-07-29] MEDS: MORPHINE SULFATE 4 MG/ML, 1ML IVPush PRN ×2 (01:33→08:42)
[2017-07-29 02:30] VITALS: BP 118/69
[2017-07-29] MEDS: PIPERACILLIN/TAZO/PMX 3.375GM 50 ML IV SCH ×3 (05:11→16:51)
[2017-07-29 07:05] VITALS: BP 132/84
[2017-07-29] MEDS: METOPROLOL TARTRATE 25 MG TABLET PO SCH (08:42)
[2017-07-29] MEDS: FUROSEMIDE 20 MG TABLET PO SCH (08:42)
[2017-07-29] MEDS: VENLAFAXINE 75 MG CAP ER PO SCH (08:42)
[2017-07-29] MEDS: OMEPRAZOLE 20 MG CAPSULE.DR PO SCH (08:42)
[2017-07-29] MEDS: PYRIDOSTIGMINE 60 MG TABLET PO SCH ×2 (08:42→16:01)
[2017-07-29] MEDS: FLUTICASONE/VILANTEROL 200-25MCG/INH INH SCH (08:43)
[2017-07-29] MEDS: SODIUM CHLORIDE FLUSH 10ML SYR IVF SCH (08:43)
[2017-07-29] MEDS ORDERED: FLUCONAZOLE 200 MG TABLET PO SCH (09:00)
[2017-07-29] MEDS: OXYcodone/APAP 10/325MG TABLET PO PRN (11:34)
[2017-07-29 12:36] VITALS: BP 111/75
[2017-07-29] MEDS ORDERED: PYRI60TA2 PO (15:20)
[2017-07-29] MEDS ORDERED: FURO20TA3 PO (15:20)
[2017-07-29] MEDS ORDERED: FLUC200T PO (15:20)
[2017-07-29] MEDS ORDERED: FLUT1BLS INH (15:28)
== END 2017-07-29 18:21 | disposition home health service (06) | DRG 853 ==
LOC: ED 18:22 → EDIP 18:27 → ED 18:34 → CCU 22:07 → ICU 07-12 14:20 → 4EST 07-14 18:13
PROVIDERS: ADMIT Surgery; ATTEND Surgery
PROC: 0DTE0ZZ Resection of Large Intestine, Open Approach (ICD-10-PCS; 2017-07-08)
PROC: 0DJD4ZZ Inspection of Lower Intestinal Tract, Percutaneous Endoscopic Approach (ICD-10-PCS; 2017-07-08)
PROC: 0W9J3ZZ Drainage of Pelvic Cavity, Percutaneous Approach (ICD-10-PCS; 2017-07-08)
PROC: 0D1B0Z4 Bypass Ileum to Cutaneous, Open Approach (ICD-10-PCS; principal; 2017-07-08 19:45)
PROC: 02HV33Z Insertion of Infusion Device into Superior Vena Cava, Percutaneous Approach (ICD-10-PCS; 2017-07-16)
PROC: B5181ZA Fluoroscopy of Superior Vena Cava using Low Osmolar Contrast, Guidance (ICD-10-PCS; 2017-07-16)
DX: A41.9 Sepsis, unspecified organism (principal); K63.1 Perforation of intestine (nontraumatic); J96.20 Acute and chronic respiratory failure, unspecified whether with hypoxia or hypercapnia; E43 Unspecified severe protein-calorie malnutrition; K35.2 Acute appendicitis with generalized peritonitis; B37.0 Candidal stomatitis; G92 Toxic encephalopathy; F11.20 Opioid dependence, uncomplicated; J18.9 Pneumonia, unspecified organism; I50.32 Chronic diastolic (congestive) heart failure; I47.1 Supraventricular tachycardia; J44.0 Chronic obstructive pulmonary disease with (acute) lower respiratory infection; J98.11 Atelectasis; K50.911 Crohn's disease, unspecified, with rectal bleeding; L88 Pyoderma gangrenosum; M48.54XA Collapsed vertebra, not elsewhere classified, thoracic region, initial encounter for fracture; I11.0 Hypertensive heart disease with heart failure; G70.00 Myasthenia gravis without (acute) exacerbation; N73.9 Female pelvic inflammatory disease, unspecified; Z53.31 Laparoscopic surgical procedure converted to open procedure; D50.9 Iron deficiency anemia, unspecified; Z68.21 Body mass index [BMI] 21.0-21.9, adult; E87.6 Hypokalemia; F17.210 Nicotine dependence, cigarettes, uncomplicated; G89.4 Chronic pain syndrome; Y92.89 Other specified places as the place of occurrence of the external cause; I25.2 Old myocardial infarction; I35.1 Nonrheumatic aortic (valve) insufficiency; I48.91 Unspecified atrial fibrillation; I73.00 Raynaud's syndrome without gangrene; I77.810 Thoracic aortic ectasia; I89.0 Lymphedema, not elsewhere classified; K80.20 Calculus of gallbladder without cholecystitis without obstruction; L97.509 Non-pressure chronic ulcer of other part of unspecified foot with unspecified severity; M35.00 Sjogren syndrome, unspecified; T40.605A Adverse effect of unspecified narcotics, initial encounter; Z99.81 Dependence on supplemental oxygen; Z86.718 Personal history of other venous thrombosis and embolism; Z86.19 Personal history of other infectious and parasitic diseases; Z79.899 Other long term (current) drug therapy; Z79.52 Long term (current) use of systemic steroids; Z86.711 Personal history of pulmonary embolism
CPT/HCPCS: 36415; 36600; 71010; 71045; 71275; 74177; 80048; 80053; 82728; 82803; 83540; 83550; 83605; 83735; 84100; 84132; 84145; 84443; 84484; 85025; 85651; 86140; 86850; 86900; 87015; 87040; 87070; 87075; 87077; 87081; 87102; 87116; 87205; 87206; 88307; 88309; 93005; 93306; 93970; 94150; 94640; 96374; C1729; J0171; J1756; J1885; J1940; J2248; J2250; J2270; J2405; J2543; J2704; J2710; J3010; J3480; J3490; J7620; Q9967; J0330; J0360; J1450; J1720; J2370; J3475; J7030; J7040; J7050; J7120; J7512

== ENCOUNTER 2018-08-29 23:35 | Inpatient (IN) | payer OTHER ==
[~2018-08-29] VITALS: Ht 167.6 cm; Wt 64.6 kg
[~2018-08-29 23:35] MED LIST changes: +ATOR20TA37 PO; -ATOR20TA9 PO; +FLUC200T PO; +FLUT1BLS INH; +FURO20TA3 PO; +METR-90 PO; -METR500T8 PO
[2018-08-30] MEDS ORDERED: SODIUM CHLORIDE FLUSH 10ML SYR IVF ONE
[2018-08-30] MEDS ORDERED: ONDANSETRON 2MG/ML, 2ML IVPush ONE
[2018-08-30] MEDS ORDERED: ONDANSETRON 2MG/ML, 2ML ONE ×3 (00:04→11:01)
[2018-08-30 00:16] LABS: BASOPHILS # (AUTO) 0.02 x10^3/uL (0-0.1); BASOPHILS % (AUTO) 0 % (0-1); EOSINOPHILS # (AUTO) 0.03 x10^3/uL (0-0.4); EOSINOPHILS % (AUTO) 0 % (1-7); LYMPHOCYTES # (AUTO) 0.45 x10^3/uL (1-3.4); LYMPHOCYTES % (AUTO) 3 % (22-44); MD NO; MEAN CORPUSCULAR HEMOGLOBIN 29.8 pg (27.0-34.8); MEAN CORPUSCULAR HGB CONC 32.9 g/dL (32.4-35.8); MEAN CORPUSCULAR VOLUME 90.7 fL (80-100); MEAN PLATELET VOLUME 8.9 fL (7.4-10.4); MONOCYTES # (AUTO) 0.42 x10^3/uL (0.2-0.8); MONOCYTES % (AUTO) 3 % (2-9); NEUTROPHILS # (AUTO) 12.58 x10^3/uL (1.8-6.8); NEUTROPHILS % (AUTO) 93 % (42-75); PLATELET COUNT 189 x10^3/uL (130-400); RED BLOOD COUNT 5.04 x10^6/uL (3.82-5.3)
[2018-08-30 00:26] LABS: INTERNATIONAL NORMALIZED RATIO 1.1 (0.93-1.1); PROTHROMBIN TIME 11.6 Seconds (9.6-11.5)
[2018-08-30 00:27] LABS: ALANINE AMINOTRANSFERASE 26 U/L (12-78); ALBUMIN 3.1 g/dL (3.4-5.0); ANION GAP 3 mmol/L (5-15); CALCIUM 8.9 mg/dL (8.5-10.1); CHLORIDE 109 mmol/L (98-107); CREATININE 1.04 mg/dL (0.55-1.02)
[2018-08-30 00:27] LABS: CULTURE INDICATED? YES
[2018-08-30 00:28] LABS: MICROSCOPIC INDICATED
[2018-08-30 00:29] LABS: ALKALINE PHOSPHATASE 71 U/L (45-117); BILIRUBIN,TOTAL 0.6 mg/dL (0.2-1.0)
[2018-08-30] MEDS ORDERED: SODIUM CHLORIDE 0.9% 1,000ML IVBOLUS ONE ×2 (00:30→02:30)
--- NOTE | 2018-08-30 00:34 | NUR ---
PT BP 84/53, IV PAIN MEDS HELD AT THIS TIME. WINDY BURGOS AWARE. IV FLUIDS STARTED, PT TOLERATING WELL.
--- NOTE | 2018-08-30 01:12 | NUR ---
BREAK RN: PT BACK FROM CT. BP IMIPROVING, FLUIDS INFUSING. PT RESTING IN BED, NAD AT THIS TIME, PLAYING GAME ON HER PHONE. AWAITING CT TO RESULT. BILAT BEDRAILS UP.
[2018-08-30] MEDS ORDERED: HYDROmorphone 1 MG/ML, 1ML ONE (01:53)
[2018-08-30] MEDS ORDERED: PIPERACILLIN/TAZO/PMX 3.375GM 50 ML IV ONE (02:00)
--- NOTE | 2018-08-30 02:00 | NUR ---
PT BP 86/53, WINDY BURGOS AWARE AND INSTRUCTED RN TO GIVE 0.5MG DILAUDID FOR PT PAIN.
[2018-08-30] MEDS ORDERED: SODIUM CHLORIDE 0.9% 1,000 ML IV SCH (02:23)
--- NOTE | 2018-08-30 02:23 | NUR ---
PT BP 89/56, IV FLUIDS INFUSING. ERMD AWARE AND TOLD RN TO GIVE 100 MCG FENT FOR PAIN.
[2018-08-30] MEDS ORDERED: FENTANYL PF 100 MCG/2ML ONE ×3 (02:26→07:38)
[2018-08-30] MEDS ORDERED: SODIUM CHLORIDE 0.9% 1,000 ML IV ONE (02:30)
[2018-08-30] MEDS ORDERED: ONDANSETRON ODT 4 MG PO PRN (02:30)
[2018-08-30] MEDS ORDERED: morphine SULFATE 10 MG/ML, 1ML IVPush PRN (02:30)
[2018-08-30] MEDS ORDERED: LABETALOL 5MG/ML, 20ML IVPush PRN (02:30)
[2018-08-30] MEDS ORDERED: hydrALAzine 20 MG/ML, 1ML IVPush PRN (02:30)
[2018-08-30] MEDS ORDERED: PROMETHAZINE 25 MG/ML, 1ML IM PRN (02:30)
[2018-08-30] MEDS ORDERED: FENTANYL PF 100 MCG/2ML IV ONE (02:30)
[2018-08-30] MEDS ORDERED: ONDANSETRON 2MG/ML, 2ML IVPush PRN (02:30)
[2018-08-30] MEDS ORDERED: PIPERACILLIN/TAZO/PMX 3.375GM 50 ML ONE (02:43)
[2018-08-30 03:19] LABS: FREE T4 (FREE THYROXINE) 0.89 ng/dL (0.76-1.46); HEMOGLOBIN A1C 6.2 % (4.2-6.3); THYROID STIMULATING HORMONE 1.8 mIU/L (0.358-3.740)
[2018-08-30 03:29] VITALS: BP 96/83
[2018-08-30 03:47] VITALS: BP 96/68
[2018-08-30 04:43] LABS: BASOPHILS % (AUTO) 0 % (0-1); EOSINOPHILS # (AUTO) 0.01 x10^3/uL (0-0.4); EOSINOPHILS % (AUTO) 0 % (1-7); LYMPHOCYTES # (AUTO) 0.35 x10^3/uL (1-3.4); LYMPHOCYTES % (AUTO) 3 % (22-44); MD NO; MEAN CORPUSCULAR HEMOGLOBIN 29.7 pg (27.0-34.8); MEAN CORPUSCULAR HGB CONC 32.5 g/dL (32.4-35.8); MEAN CORPUSCULAR VOLUME 91.3 fL (80-100); MEAN PLATELET VOLUME 8.9 fL (7.4-10.4); MONOCYTES # (AUTO) 0.55 x10^3/uL (0.2-0.8); MONOCYTES % (AUTO) 4 % (2-9); NEUTROPHILS # (AUTO) 12.54 x10^3/uL (1.8-6.8); NEUTROPHILS % (AUTO) 93 % (42-75); PLATELET COUNT 156 x10^3/uL (130-400); RED BLOOD COUNT 4.53 x10^6/uL (3.82-5.3); RED CELL DISTRIBUTION WIDTH 16.1 % (9.6-15.2)
[2018-08-30 04:51] LABS: ALBUMIN 2.5 g/dL (3.4-5.0); CALCIUM 7.7 mg/dL (8.5-10.1)
[2018-08-30 04:55] LABS: ALANINE AMINOTRANSFERASE 19 U/L (12-78); ALKALINE PHOSPHATASE 57 U/L (45-117); BILIRUBIN,TOTAL 0.6 mg/dL (0.2-1.0); CHOL/HDL RATIO 2.6; CHOLESTEROL, TOTAL 120 mg/dL (140-239); CREATININE 0.87 mg/dL (0.55-1.02); HDL CHOL % 39 % (28-40); HDL CHOLESTEROL (DIRECT) 47 mg/dL (40-60); LDL CHOLESTEROL,CALCULATED 48 mg/dL (54-169); TOTAL PROTEIN 5.5 g/dL (6.4-8.2); TRIGLYCERIDES 124 mg/dL (50-200); VLDL CHOLESTEROL 25 mg/dL (0-25)
[2018-08-30 05:14] LABS: ANION GAP 5 mmol/L (5-15); CHLORIDE 113 mmol/L (98-107)
[2018-08-30] MEDS ORDERED: OMNIPAQUE 350 MG/ML, 100ML BOTTLE ONE (05:50)
[2018-08-30] MEDS ORDERED: FENTANYL PF 250 MCG/5ML ONE (05:58)
[2018-08-30] MEDS ORDERED: PIPERACILLIN/TAZO/PMX 3.375GM 50 ML IV SCH ×2 (06:00→09:30)
[2018-08-30] MEDS ORDERED: ONDANSETRON 2MG/ML, 2ML IV PRN (06:30)
[2018-08-30] MEDS ORDERED: LABETALOL 5MG/ML, 20ML IV PRN (06:30)
[2018-08-30] MEDS ORDERED: FENTANYL PF 100 MCG/2ML IV PRN (06:30)
[2018-08-30] MEDS ORDERED: ACETAMINOPHEN 325 MG TABLET PO PRN (06:30)
[2018-08-30] MEDS ORDERED: hydrALAzine 20 MG/ML, 1ML IV PRN (06:30)
[2018-08-30] MEDS ORDERED: ONDANSETRON ODT 8 MG PO PRN (06:30)
[2018-08-30] MEDS ORDERED: DIAZEPAM 5 MG/ML, 2ML IVPush PRN (06:30)
[2018-08-30] MEDS ORDERED: PROMETHAZINE 25 MG/ML, 1ML IV PRN (06:30)
[2018-08-30] MEDS ORDERED: OXYcodone 5 MG/5 ML ORAL.SOL UDC PO PRN (06:30)
[2018-08-30] MEDS ORDERED: HYDROmorphone 2 MG/ML, 1ML IVPush PRN ×2 (06:30)
[2018-08-30] MEDS ORDERED: HYDROCORTISONE 250 MG/2 ML ONE (06:31)
[2018-08-30] MEDS ORDERED: SUGAMMADEX 200 MG/2 ML IVPush ONE (06:38)
[2018-08-30] MEDS ORDERED: HYDROCORTISONE 100 MG INJ. ONE (06:45)
[2018-08-30] MEDS ORDERED: ALBUTEROL SULFATE 2.5 MG/3 ML ONE (08:00)
[2018-08-30] MEDS: VENLAFAXINE 75 MG CAP ER PO SCH (08:56)
[2018-08-30] MEDS: METOPROLOL TARTRATE 25 MG TABLET PO SCH ×2 (08:56→21:00)
[2018-08-30] MEDS: morphine SULFATE 60 MG TABLET.ER PO SCH ×2 (08:57→21:00)
[2018-08-30] MEDS: PYRIDOSTIGMINE 60 MG TABLET PO SCH ×3 (08:57→21:00)
[2018-08-30] MEDS: LACTATED RINGERS 1,000 ML IV SCH ×2 (09:56→20:02)
[2018-08-30] MEDS ORDERED: PROPOFOL 10 MG/ML, 20ML ONE (11:01)
[2018-08-30] MEDS ORDERED: SUCCINYLCHOLINE 20 MG/ML, 10ML ONE (11:01)
[2018-08-30] MEDS ORDERED: ROCURONIUM 10MG/ML,5ML ONE (11:01)
[2018-08-30] MEDS: morphine SULFATE 10 MG/ML, 1ML IV PRN ×4 (14:00→22:21)
[2018-08-30] MEDS: LINEZOLID PMX 600MG/300ML 300 ML IV SCH (16:46)
[2018-08-30] MEDS ORDERED: ALBUTEROL SULFATE 2.5 MG/3 ML NPPB PRN (20:30)
[2018-08-30] MEDS: ATORVASTATIN 40 MG TABLET PO SCH (21:00)
[2018-08-30] MEDS: PIPERACILLIN/TAZO/PMX 3.375GM 50 ML IV SCH (21:49)
[2018-08-31] MEDS: morphine SULFATE 10 MG/ML, 1ML IV PRN ×7 (02:32→23:57)
[2018-08-31] MEDS: LINEZOLID PMX 600MG/300ML 300 ML IV SCH ×2 (03:32→15:34)
[2018-08-31] MEDS: PIPERACILLIN/TAZO/PMX 3.375GM 50 ML IV SCH ×4 (03:32→21:34)
[2018-08-31 04:30] VITALS: BP 153/85
[2018-08-31 04:51] LABS: ALANINE AMINOTRANSFERASE 26 U/L (12-78); ALBUMIN 2.3 g/dL (3.4-5.0); ANION GAP 6 mmol/L (5-15); BASOPHILS # (AUTO) 0.01 x10^3/uL (0-0.1); BASOPHILS % (AUTO) 0 % (0-1); CALCIUM 8.4 mg/dL (8.5-10.1); CHLORIDE 106 mmol/L (98-107); CREATININE 0.62 mg/dL (0.55-1.02); EOSINOPHILS # (AUTO) 0.01 x10^3/uL (0-0.4); EOSINOPHILS % (AUTO) 0 % (1-7); LYMPHOCYTES # (AUTO) 0.44 x10^3/uL (1-3.4); LYMPHOCYTES % (AUTO) 3 % (22-44); MD NO; MEAN CORPUSCULAR HEMOGLOBIN 29.9 pg (27.0-34.8); MEAN CORPUSCULAR VOLUME 90.4 fL (80-100); MEAN PLATELET VOLUME 8.7 fL (7.4-10.4); MONOCYTES # (AUTO) 0.92 x10^3/uL (0.2-0.8); MONOCYTES % (AUTO) 6 % (2-9); NEUTROPHILS # (AUTO) 14.36 x10^3/uL (1.8-6.8); NEUTROPHILS % (AUTO) 91 % (42-75); PLATELET COUNT 174 x10^3/uL (130-400); RED BLOOD COUNT 4.79 x10^6/uL (3.82-5.3); RED CELL DISTRIBUTION WIDTH 16.5 % (9.6-15.2)
[2018-08-31 04:53] LABS: ALKALINE PHOSPHATASE 71 U/L (45-117); BILIRUBIN,TOTAL 0.7 mg/dL (0.2-1.0); TOTAL PROTEIN 6.1 g/dL (6.4-8.2)
[2018-08-31] MEDS: LACTATED RINGERS 1,000 ML IV SCH ×3 (05:50→21:45)
[2018-08-31] MEDS: ENOXAPARIN 40 MG/0.4 ML SQ SCH (05:58)
[2018-08-31] MEDS: VENLAFAXINE 75 MG CAP ER PO SCH (08:17)
[2018-08-31] MEDS: METOPROLOL TARTRATE 25 MG TABLET PO SCH ×2 (08:17→21:00)
[2018-08-31] MEDS: PYRIDOSTIGMINE 60 MG TABLET PO SCH ×3 (08:18→21:00)
[2018-08-31] MEDS: morphine SULFATE 60 MG TABLET.ER PO SCH ×2 (08:18→21:00)
[2018-08-31] MEDS: METOPROLOL 1 MG/ML, 5ML IVPush SCH ×3 (09:31→20:45)
[2018-08-31] MEDS ORDERED: POTASSIUM PHOSPHATE 44 MEQ in SODIUM CHLORIDE 0.9% 500 ML IV ONE (11:30)
[2018-08-31] MEDS ORDERED: MAGNESIUM SULFATE PMX 2GM/50ML 50 ML IV ONE (11:30)
[2018-08-31] MEDS ORDERED: KETO5DRO77 LEFTEYE (16:27)
[2018-08-31] MEDS ORDERED: OFLO5DRO7 LEFTEYE (16:28)
[2018-08-31] MEDS ORDERED: DIFL5DRO LEFTEYE (16:29)
[2018-08-31 18:40] VITALS: BP 136/86
[2018-08-31] MEDS: ATORVASTATIN 40 MG TABLET PO SCH (21:00)
[2018-08-31] MEDS: KETOROLAC OPHTH 0.5%, 5ML LEFTEYE SCH (21:00)
[2018-08-31] MEDS: OFLOXACIN OPHTH 0.3%, 5ML LEFTEYE SCH (21:00)
[2018-09-01 02:19] VITALS: BP 141/89
[2018-09-01] MEDS: METOPROLOL 1 MG/ML, 5ML IVPush SCH ×4 (03:21→21:44)
[2018-09-01] MEDS: PIPERACILLIN/TAZO/PMX 3.375GM 50 ML IV SCH ×4 (03:22→21:43)
[2018-09-01] MEDS: morphine SULFATE 10 MG/ML, 1ML IV PRN ×2 (03:22→06:21)
[2018-09-01] MEDS: LINEZOLID PMX 600MG/300ML 300 ML IV SCH ×2 (04:15→16:25)
[2018-09-01 05:56] LABS: CHLORIDE 100 mmol/L (98-107)
[2018-09-01 06:00] LABS: ANION GAP 6 mmol/L (5-15); CALCIUM 7.8 mg/dL (8.5-10.1); CREATININE 0.57 mg/dL (0.55-1.02)
[2018-09-01] MEDS: OFLOXACIN OPHTH 0.3%, 5ML LEFTEYE SCH ×4 (06:00→20:26)
[2018-09-01] MEDS: KETOROLAC OPHTH 0.5%, 5ML LEFTEYE SCH ×4 (06:00→20:26)
[2018-09-01 06:11] LABS: MEAN CORPUSCULAR HEMOGLOBIN 29.6 pg (27.0-34.8); MEAN CORPUSCULAR HGB CONC 32.7 g/dL (32.4-35.8); MEAN CORPUSCULAR VOLUME 90.3 fL (80-100); MEAN PLATELET VOLUME 8.4 fL (7.4-10.4); PLATELET COUNT 230 x10^3/uL (130-400); RED BLOOD COUNT 4.71 x10^6/uL (3.82-5.3); RED CELL DISTRIBUTION WIDTH 16.2 % (9.6-15.2)
[2018-09-01] MEDS: ENOXAPARIN 40 MG/0.4 ML SQ SCH (06:14)
[2018-09-01 06:26] LABS: BASOPHILS # (AUTO) 0.02 x10^3/uL (0-0.1); BASOPHILS % (AUTO) 0 % (0-1); EOSINOPHILS # (AUTO) 0.03 x10^3/uL (0-0.4); EOSINOPHILS % (AUTO) 0 % (1-7); LYMPHOCYTES # (AUTO) 0.47 x10^3/uL (1-3.4); LYMPHOCYTES % (AUTO) 3 % (22-44); MD SCAN; MONOCYTES % (AUTO) 6 % (2-9); NEUTROPHILS # (AUTO) 12.96 x10^3/uL (1.8-6.8); NEUTROPHILS % (AUTO) 91 % (42-75)
[2018-09-01 08:34] VITALS: BP 151/83
[2018-09-01] MEDS: PYRIDOSTIGMINE 60 MG TABLET PO SCH ×3 (08:53→20:26)
[2018-09-01] MEDS: morphine SULFATE 60 MG TABLET.ER PO SCH ×2 (08:53→20:26)
[2018-09-01] MEDS: METOPROLOL TARTRATE 25 MG TABLET PO SCH ×2 (08:53→20:50)
[2018-09-01] MEDS: VENLAFAXINE 75 MG CAP ER PO SCH (08:54)
[2018-09-01] MEDS: LACTATED RINGERS 1,000 ML IV SCH ×2 (11:50→21:44)
[2018-09-01] MEDS: OXYcodone IR 5MG TABLET PO PRN ×2 (15:43→22:50)
[2018-09-01 15:50] VITALS: BP 103/68
[2018-09-01 18:37] VITALS: BP 106/68
[2018-09-01] MEDS ORDERED: POTASSIUM PHOSPHATE 44 MEQ in SODIUM CHLORIDE 0.9% 500 ML IV ONE (19:30)
[2018-09-01] MEDS ORDERED: POTASSIUM PHOSPHATE IV SCH (20:00)
[2018-09-01] MEDS ORDERED: SODIUM CHLORIDE 0.9% IV SCH (20:00)
[2018-09-01] MEDS ORDERED: POTASSIUM CHLORIDE IV SCH (20:00)
[2018-09-01] MEDS: ATORVASTATIN 40 MG TABLET PO SCH (20:26)
[2018-09-01] MEDS ORDERED: PANTOPROZOLE 40MG TABLET PO SCH (22:00)
[2018-09-02 02:36] VITALS: BP 88/52
[2018-09-02] MEDS: OXYcodone IR 5MG TABLET PO PRN ×4 (03:15→22:29)
[2018-09-02] MEDS ORDERED: POTASSIUM CHLORIDE 40 MEQ in SODIUM CHLORIDE 0.9% 500 ML IV ONE (04:00)
[2018-09-02] MEDS: METOPROLOL 1 MG/ML, 5ML IVPush SCH ×4 (04:06→21:46)
[2018-09-02] MEDS: PIPERACILLIN/TAZO/PMX 3.375GM 50 ML IV SCH ×4 (04:06→22:24)
[2018-09-02] MEDS: LINEZOLID PMX 600MG/300ML 300 ML IV SCH ×2 (05:10→16:42)
[2018-09-02] MEDS: ENOXAPARIN 40 MG/0.4 ML SQ SCH (05:11)
[2018-09-02 05:27] LABS: ALBUMIN 1.6 g/dL (3.4-5.0); ANION GAP 5 mmol/L (5-15); CALCIUM 7.5 mg/dL (8.5-10.1); CHLORIDE 104 mmol/L (98-107)
[2018-09-02 05:30] LABS: BASOPHILS % (AUTO) 0 % (0-1); EOSINOPHILS # (AUTO) 0.11 x10^3/uL (0-0.4); EOSINOPHILS % (AUTO) 1 % (1-7); LYMPHOCYTES # (AUTO) 0.42 x10^3/uL (1-3.4); LYMPHOCYTES % (AUTO) 4 % (22-44); MD NO; MEAN CORPUSCULAR HEMOGLOBIN 29.4 pg (27.0-34.8); MEAN CORPUSCULAR HGB CONC 32.3 g/dL (32.4-35.8); MEAN CORPUSCULAR VOLUME 90.8 fL (80-100); MEAN PLATELET VOLUME 7.9 fL (7.4-10.4); MONOCYTES # (AUTO) 0.71 x10^3/uL (0.2-0.8); MONOCYTES % (AUTO) 7 % (2-9); NEUTROPHILS # (AUTO) 8.81 x10^3/uL (1.8-6.8); NEUTROPHILS % (AUTO) 88 % (42-75); PLATELET COUNT 200 x10^3/uL (130-400); RED BLOOD COUNT 4.04 x10^6/uL (3.82-5.3)
[2018-09-02 05:31] LABS: ALANINE AMINOTRANSFERASE 15 U/L (12-78); ALKALINE PHOSPHATASE 54 U/L (45-117); BILIRUBIN,TOTAL 0.8 mg/dL (0.2-1.0); CREATININE 0.56 mg/dL (0.55-1.02); TOTAL PROTEIN 4.9 g/dL (6.4-8.2)
[2018-09-02] MEDS: OFLOXACIN OPHTH 0.3%, 5ML LEFTEYE SCH ×4 (06:47→21:45)
[2018-09-02] MEDS: KETOROLAC OPHTH 0.5%, 5ML LEFTEYE SCH ×4 (06:47→21:45)
[2018-09-02 07:59] VITALS: BP 107/72
[2018-09-02] MEDS: METOPROLOL TARTRATE 25 MG TABLET PO SCH ×2 (08:49→21:44)
[2018-09-02] MEDS: VENLAFAXINE 75 MG CAP ER PO SCH (08:49)
[2018-09-02] MEDS: morphine SULFATE 60 MG TABLET.ER PO SCH ×2 (08:49→21:44)
[2018-09-02] MEDS: PYRIDOSTIGMINE 60 MG TABLET PO SCH ×3 (08:49→21:44)
[2018-09-02] MEDS: NYSTATIN 500,000 UNITS/5 ML UDC PO SCH ×2 (12:24→18:24)
[2018-09-02] MEDS: LACTATED RINGERS 1,000 ML IV SCH ×2 (12:31→21:45)
[2018-09-02 12:55] VITALS: BP 104/66
[2018-09-02 19:00] VITALS: BP 108/68
[2018-09-02] MEDS: ATORVASTATIN 40 MG TABLET PO SCH (21:44)
[2018-09-02] MEDS: PANTOPROZOLE 40MG TABLET PO SCH (22:24)
[2018-09-03] MEDS: NYSTATIN 500,000 UNITS/5 ML UDC PO SCH ×4 (01:04→18:35)
[2018-09-03 02:57] VITALS: BP 107/68
[2018-09-03] MEDS: PIPERACILLIN/TAZO/PMX 3.375GM 50 ML IV SCH ×2 (04:26→10:25)
[2018-09-03] MEDS: METOPROLOL 1 MG/ML, 5ML IVPush SCH ×4 (04:28→21:01)
[2018-09-03] MEDS: LINEZOLID PMX 600MG/300ML 300 ML IV SCH (05:04)
[2018-09-03] MEDS: OFLOXACIN OPHTH 0.3%, 5ML LEFTEYE SCH ×4 (05:04→21:01)
[2018-09-03] MEDS: OXYcodone IR 5MG TABLET PO PRN ×4 (05:04→20:58)
[2018-09-03] MEDS: KETOROLAC OPHTH 0.5%, 5ML LEFTEYE SCH ×4 (05:04→21:00)
[2018-09-03] MEDS: ENOXAPARIN 40 MG/0.4 ML SQ SCH (05:05)
[2018-09-03 05:46] LABS: BASOPHILS # (AUTO) 0.05 x10^3/uL (0-0.1); BASOPHILS % (AUTO) 0 % (0-1); EOSINOPHILS # (AUTO) 0.06 x10^3/uL (0-0.4); EOSINOPHILS % (AUTO) 1 % (1-7); LYMPHOCYTES # (AUTO) 0.66 x10^3/uL (1-3.4); LYMPHOCYTES % (AUTO) 6 % (22-44); MD NO; MEAN CORPUSCULAR HEMOGLOBIN 30.1 pg (27.0-34.8); MEAN CORPUSCULAR HGB CONC 33.2 g/dL (32.4-35.8); MEAN CORPUSCULAR VOLUME 90.7 fL (80-100); MEAN PLATELET VOLUME 8.1 fL (7.4-10.4); MONOCYTES # (AUTO) 0.86 x10^3/uL (0.2-0.8); MONOCYTES % (AUTO) 8 % (2-9); NEUTROPHILS # (AUTO) 9.39 x10^3/uL (1.8-6.8); NEUTROPHILS % (AUTO) 85 % (42-75); PLATELET COUNT 218 x10^3/uL (130-400); RED BLOOD COUNT 3.94 x10^6/uL (3.82-5.3); RED CELL DISTRIBUTION WIDTH 16.3 % (9.6-15.2)
[2018-09-03 06:03] LABS: ALBUMIN 1.7 g/dL (3.4-5.0); ANION GAP 6 mmol/L (5-15); CALCIUM 8.2 mg/dL (8.5-10.1); CHLORIDE 105 mmol/L (98-107); CREATININE 0.46 mg/dL (0.55-1.02)
[2018-09-03 08:08] VITALS: BP 104/69
[2018-09-03] MEDS: morphine SULFATE 60 MG TABLET.ER PO SCH ×2 (08:18→20:58)
[2018-09-03] MEDS: METOPROLOL TARTRATE 25 MG TABLET PO SCH ×2 (08:18→20:58)
[2018-09-03] MEDS: PYRIDOSTIGMINE 60 MG TABLET PO SCH ×3 (08:18→20:58)
[2018-09-03] MEDS: VENLAFAXINE 75 MG CAP ER PO SCH (08:18)
[2018-09-03] MEDS: LEVOFLOXACIN 750 MG TABLET PO SCH (15:15)
[2018-09-03 15:16] VITALS: BP 103/73
[2018-09-03 19:41] VITALS: BP 101/64
[2018-09-03] MEDS: PANTOPROZOLE 40MG TABLET PO SCH (20:58)
[2018-09-03] MEDS: ATORVASTATIN 40 MG TABLET PO SCH (20:58)
[2018-09-03] MEDS ORDERED: PANTOPROZOLE 40MG TABLET PO SCH (21:00)
[2018-09-04 00:56] VITALS: BP 107/70
[2018-09-04] MEDS: OXYcodone IR 5MG TABLET PO PRN ×3 (01:24→12:51)
[2018-09-04] MEDS: METOPROLOL 1 MG/ML, 5ML IVPush SCH ×3 (03:31→15:30)
[2018-09-04 04:22] LABS: BASOPHILS # (AUTO) 0.01 x10^3/uL (0-0.1); BASOPHILS % (AUTO) 0 % (0-1); EOSINOPHILS # (AUTO) 0.03 x10^3/uL (0-0.4); EOSINOPHILS % (AUTO) 0 % (1-7); LYMPHOCYTES # (AUTO) 0.71 x10^3/uL (1-3.4); LYMPHOCYTES % (AUTO) 6 % (22-44); MD NO; MEAN CORPUSCULAR HEMOGLOBIN 29.8 pg (27.0-34.8); MEAN CORPUSCULAR HGB CONC 32.7 g/dL (32.4-35.8); MEAN CORPUSCULAR VOLUME 91.3 fL (80-100); MEAN PLATELET VOLUME 7.8 fL (7.4-10.4); MONOCYTES # (AUTO) 1.05 x10^3/uL (0.2-0.8); MONOCYTES % (AUTO) 8 % (2-9); NEUTROPHILS # (AUTO) 10.94 x10^3/uL (1.8-6.8); NEUTROPHILS % (AUTO) 86 % (42-75); PLATELET COUNT 254 x10^3/uL (130-400); RED BLOOD COUNT 4.01 x10^6/uL (3.82-5.3); RED CELL DISTRIBUTION WIDTH 16.3 % (9.6-15.2)
[2018-09-04 04:30] LABS: ALBUMIN 1.8 g/dL (3.4-5.0); ANION GAP 4 mmol/L (5-15); CHLORIDE 106 mmol/L (98-107); CREATININE 0.53 mg/dL (0.55-1.02)
[2018-09-04] MEDS: ENOXAPARIN 40 MG/0.4 ML SQ SCH (05:09)
[2018-09-04] MEDS: NYSTATIN 500,000 UNITS/5 ML UDC PO SCH ×4 (06:14→19:20)
[2018-09-04] MEDS: OFLOXACIN OPHTH 0.3%, 5ML LEFTEYE SCH ×3 (06:14→16:51)
[2018-09-04] MEDS: KETOROLAC OPHTH 0.5%, 5ML LEFTEYE SCH ×3 (06:15→16:51)
[2018-09-04 08:01] VITALS: BP 114/74
[2018-09-04] MEDS: METOPROLOL TARTRATE 25 MG TABLET PO SCH (09:06)
[2018-09-04] MEDS: PYRIDOSTIGMINE 60 MG TABLET PO SCH ×2 (09:06→16:51)
[2018-09-04] MEDS: morphine SULFATE 60 MG TABLET.ER PO SCH (09:06)
[2018-09-04] MEDS: VENLAFAXINE 75 MG CAP ER PO SCH (09:06)
[2018-09-04] MEDS ORDERED: LEVO750T26 PO (11:44)
[2018-09-04] MEDS ORDERED: PRED20TA PO (11:44)
[2018-09-04 14:48] VITALS: BP 97/62
[2018-09-04] MEDS: LEVOFLOXACIN 750 MG TABLET PO SCH (15:11)
== END 2018-09-04 19:53 | disposition home health service (06) | DRG 356 ==
LOC: ED 23:56 → EDIP 08-30 02:01 → 4NOR 08-30 03:14 → CCU 08-30 08:22 → 4WST 08-31 17:51
PROVIDERS: ADMIT Internal Medicine; ATTEND Internal Medicine
PROC: 0T9B70Z Drainage of Bladder with Drainage Device, Via Natural or Artificial Opening (ICD-10-PCS; 2018-08-30)
PROC: 0WJG0ZZ Inspection of Peritoneal Cavity, Open Approach (ICD-10-PCS; principal; 2018-08-30 06:00)
DX: K63.1 Perforation of intestine (nontraumatic) (principal); K65.9 Peritonitis, unspecified; J96.20 Acute and chronic respiratory failure, unspecified whether with hypoxia or hypercapnia; N17.0 Acute kidney failure with tubular necrosis; E44.0 Moderate protein-calorie malnutrition; F11.20 Opioid dependence, uncomplicated; K51.90 Ulcerative colitis, unspecified, without complications; L88 Pyoderma gangrenosum; M48.56XA Collapsed vertebra, not elsewhere classified, lumbar region, initial encounter for fracture; R57.9 Shock, unspecified; E83.39 Other disorders of phosphorus metabolism; E87.6 Hypokalemia; G70.00 Myasthenia gravis without (acute) exacerbation; G89.29 Other chronic pain; I73.00 Raynaud's syndrome without gangrene; J44.9 Chronic obstructive pulmonary disease, unspecified; K43.5 Parastomal hernia without obstruction or gangrene; K66.8 Other specified disorders of peritoneum; K80.20 Calculus of gallbladder without cholecystitis without obstruction; M35.00 Sjogren syndrome, unspecified; Z86.19 Personal history of other infectious and parasitic diseases; Z86.711 Personal history of pulmonary embolism; Z86.718 Personal history of other venous thrombosis and embolism; Z87.891 Personal history of nicotine dependence; Z90.49 Acquired absence of other specified parts of digestive tract; Z93.2 Ileostomy status; Z99.81 Dependence on supplemental oxygen; I11.0 Hypertensive heart disease with heart failure; I50.9 Heart failure, unspecified; Z68.23 Body mass index [BMI] 23.0-23.9, adult
CPT/HCPCS: 36415; 36600; J7613; 71045; 74177; 80048; 80053; 80061; 81001; 82040; 82803; 83036; 83605; 83690; 83735; 84100; 84439; 84443; 85025; 85610; 85730; 87015; 87040; 87070; 87075; 87077; 87081; 87086; 87102; 87116; 87186; 87205; 87206; 96361; 96365; 96375; 99291; C1729; G0378; J1170; J1650; J1720; J2020; J2405; J2543; J2704; J3010; J3480; Q9967; C1765; J0330; J2270; J3475; J7030; J7040; J7120; J7512

== ENCOUNTER 2019-06-17 09:40 | Inpatient (IN) | payer OTHER ==
[~2019-06-17] VITALS: Ht 167.6 cm; Wt 63.4 kg
[~2019-06-17 09:40] MED LIST changes: +DIFL5DRO LEFTEYE; +ESCI20TA10 PO; +KETO5DRO77 LEFTEYE; +OFLO5DRO7 LEFTEYE; -VANC125C2 PO; +VANC125C3 PO
[2019-06-17] MEDS ORDERED: [UNRECOGNIZED DRUG - CODE] PO (09:52)
--- NOTE | 2019-06-17 09:55 | NUR ---
BIB EMS FROM HOME FOR INCREASING WEAKNESS PAST 3 DAYS W SOME NAUSEA. PT DENIES CP. INTERMITENT SOB. DENIES VOMITING OR DIARRHEA. NO FEVER. CECHECTIC W DRY MUCOUS MEMBRANES. PT HAS ILEOSTOMY, CLEAN DRY AND INTACT. PT IS SOMNULENT, A&OX4. IV IN FIELD. 250 ML GIVEN EMS. VS STABLE. PT IS RESTING IN GOWN ON GURNEY. HEATER TURNED ON FOR COMFORT. WAITING FOR FURTHER ORDERS.
[2019-06-17] MEDS ORDERED: SODIUM CHLORIDE 0.9% 1,000ML IVBOLUS ONE (10:00)
[2019-06-17] MEDS ORDERED: SODIUM CHLORIDE FLUSH 10ML SYR IVF ONE (10:00)
[2019-06-17 10:33] LABS: BASOPHILS % (AUTO) 0 % (0-1); EOSINOPHILS # (AUTO) 0.07 x10^3/uL (0-0.4); EOSINOPHILS % (AUTO) 1 % (1-7); LYMPHOCYTES # (AUTO) 0.79 x10^3/uL (1-3.4); LYMPHOCYTES % (AUTO) 9 % (22-44); MD NO; MEAN CORPUSCULAR HEMOGLOBIN 30.2 pg (27.0-34.8); MEAN CORPUSCULAR HGB CONC 32.2 g/dL (32.4-35.8); MEAN PLATELET VOLUME 8.9 fL (7.4-10.4); MONOCYTES # (AUTO) 0.76 x10^3/uL (0.2-0.8); MONOCYTES % (AUTO) 8 % (2-9); NEUTROPHILS # (AUTO) 7.68 x10^3/uL (1.8-6.8); NEUTROPHILS % (AUTO) 83 % (42-75); PLATELET COUNT 358 x10^3/uL (130-400); RED BLOOD COUNT 5.13 x10^6/uL (3.82-5.3); RED CELL DISTRIBUTION WIDTH 16.5 % (9.6-15.2)
[2019-06-17 10:39] LABS: ALANINE AMINOTRANSFERASE 23 U/L (12-78); ANION GAP 16 mmol/L (5-15); CALCIUM 8.8 mg/dL (8.5-10.1); CHLORIDE 103 mmol/L (98-107)
[2019-06-17 10:42] LABS: ALKALINE PHOSPHATASE 65 U/L (45-117); BILIRUBIN,TOTAL 0.6 mg/dL (0.2-1.0); CREATININE 0.92 mg/dL (0.55-1.02); TOTAL PROTEIN 6.5 g/dL (6.4-8.2)
--- NOTE | 2019-06-17 10:49 | NUR ---
POC 26 BLOOD SUGAR. MD AWARE. DEXTROSE 50% ORDERED. GIVEN SIPS OF JUICE.
[2019-06-17] MEDS ORDERED: DEXTROSE 50%, 50ML SYRINGE IVPush ONE (11:00)
--- NOTE | 2019-06-17 11:13 | NUR ---
BG 173. PT MORE ALERT AFTER DEXTROSE
[2019-06-17 11:14] LABS: MICROSCOPIC AUTO
[2019-06-17 11:19] LABS: CULTURE INDICATED? NO
--- NOTE | 2019-06-17 12:19 | NUR ---
BG 102. PT IS SLEEPING. AROUSABLE OX4. VS STABLE.
[2019-06-17] MEDS ORDERED: SODIUM CHLORIDE 0.9% 1,000 ML IV SCH (13:25)
--- NOTE | 2019-06-17 13:25 | NUR ---
PT RESTING. POC 110. GIVEN APPLE SAUCE. NO NEEDS AT THIS TIME.
[2019-06-17] MEDS ORDERED: hydrALAzine 20 MG/ML, 1ML IVPush PRN (13:30)
[2019-06-17] MEDS ORDERED: LABETALOL 5MG/ML, 20ML IVPush PRN (13:30)
[2019-06-17] MEDS ORDERED: PROMETHAZINE 25 MG/ML, 1ML IM PRN (13:30)
[2019-06-17] MEDS ORDERED: ASPIRIN 81 MG TABLET CHEW PO ONE (13:30)
[2019-06-17] MEDS ORDERED: ACETAMINOPHEN 325 MG TABLET PO PRN (13:30)
[2019-06-17] MEDS ORDERED: DEXTROSE 50%, 50ML SYRINGE IVPush PRN (14:00)
[2019-06-17] MEDS ORDERED: GLUCAGON 1 MG IM PRN (14:00)
[2019-06-17] MEDS ORDERED: DEXTROSE 4 GM TAB.CHEW PO PRN (14:00)
[2019-06-17] MEDS: NICOTINE 7 MG/24 HR PATCH.TD24 TD SCH (14:07)
[2019-06-17] MEDS ORDERED: ASPIRIN 81 MG TABLET CHEW ONE (14:08)
[2019-06-17 14:11] LABS: ALBUMIN 2.5 g/dL (3.4-5.0); ANION GAP 14 mmol/L (5-15); CALCIUM 7.9 mg/dL (8.5-10.1); CHLORIDE 105 mmol/L (98-107)
[2019-06-17 14:16] LABS: ALANINE AMINOTRANSFERASE 16 U/L (12-78); ALKALINE PHOSPHATASE 55 U/L (45-117); BILIRUBIN,TOTAL 0.7 mg/dL (0.2-1.0); CREATININE 0.72 mg/dL (0.55-1.02); TOTAL PROTEIN 5.6 g/dL (6.4-8.2); TROPONIN I 0.047 ng/mL (0.000-0.045)
[2019-06-17] MEDS ORDERED: DILTIAZEM 5 MG/ML, 5ML ONE (14:18)
--- NOTE | 2019-06-17 14:23 | NUR ---
BREAK RN: PT HR IN THE BETWEEN 120-150 DR GILL AWARE. EKG DONE AND SHOWN TO BRIDGET. CARDIZEM ORDERED. MEDICATION GIVEN. PT RESTING IN ROOM. VS STABLE. CARDICA MONITOR [facility] PRIMARY RN IS ON BREAK.
--- NOTE | 2019-06-17 14:29 | NUR ---
REPORT FROM [facility].
[2019-06-17] MEDS ORDERED: DILTIAZEM 5 MG/ML, 5ML IVPush ONE (14:30)
--- NOTE | 2019-06-17 14:38 | NUR ---
RORO Lehman UPGRADE TO CARD TELE. RATE STILL AFIB RVR 120-130 AFTER MEDICATION
--- NOTE | 2019-06-17 15:04 | NUR ---
DISCUSSED W MD RASHEED POC 71 AND RATE AFIB 120-140. ORDERED DILT GTT @10 ML/HR AND D5 1/2NS AT 125ML/HR. WILL START SECOND IV
[2019-06-17] MEDS: DILTIAZEM 125 MG in SODIUM CHLORIDE 0.9% 100 ML IV SCH (15:25)
[2019-06-17] MEDS ORDERED: D5%-0.45% NACL 1,000 ML IV SCH (15:30)
--- NOTE | 2019-06-17 15:32 | NUR ---
ATTEMPT TO CALL [facility], [phone]. LEFT VOICEMAIL
--- NOTE | 2019-06-17 15:36 | NUR ---
PER , PT HAS NOT EATEN IN ABOUT A WEEK AND RARELY TAKES DRINKS, HAS BEEN SLEEPING ALOT. PER PT IS NAUSEAS AND CANT EAT. REQUEST [employer] PROFESSOR TO BE INVOLVED, IS NOT AROUND ALOT FOR WORK.
--- NOTE | 2019-06-17 16:07 | NUR ---
PT ON HOSPITAL GURNEY AND COMFORTABLE, REPOSITIONED. SLEEPY, YET AROUSABLE. YARN SPINNER AT BEDSIDE. SACRUM RED AND BLANCHABLE.
--- NOTE | 2019-06-17 18:00 | NUR ---
REPORT TO JOCELYN
[2019-06-17 18:37] LABS: TROPONIN I 0.048 ng/mL (0.000-0.045)
[2019-06-17 18:41] VITALS: BP 112/54
[2019-06-17] MEDS: OXYcodone/APAP 10/325MG TABLET PO SCH ×2 (18:45→21:21)
[2019-06-17] MEDS: HEPARIN 5,000 UNITS/ML, 1ML SQ SCH ×2 (18:45→21:14)
[2019-06-17] MEDS: PYRIDOSTIGMINE 60 MG TABLET PO SCH ×2 (18:45→21:13)
[2019-06-17 19:42] VITALS: BP 116/70
[2019-06-17] MEDS: SODIUM CHLORIDE FLUSH 10ML SYR IVF SCH (21:00)
[2019-06-17] MEDS ORDERED: METOPROLOL TARTRATE 25 MG TABLET PO SCH (21:00)
[2019-06-17] MEDS: PANTOPROZOLE 40MG TABLET PO SCH (21:13)
[2019-06-17] MEDS: ATORVASTATIN 40 MG TABLET PO SCH (21:14)
[2019-06-17] MEDS: ONDANSETRON 2MG/ML, 2ML IVPush PRN (22:18)
[2019-06-17] MEDS: D5%-0.45% NACL 1,000 ML IV SCH (23:07)
[2019-06-17 23:30] LABS: TROPONIN I 0.105 ng/mL (0.000-0.045)
[2019-06-18 00:53] VITALS: BP 126/70
[2019-06-18] MEDS: DILTIAZEM 125 MG in SODIUM CHLORIDE 0.9% 100 ML IV SCH ×2 (02:23→17:30)
[2019-06-18 02:25] VITALS: BP 113/65
[2019-06-18 04:53] LABS: BASOPHILS # (AUTO) 0.05 x10^3/uL (0-0.1); BASOPHILS % (AUTO) 1 % (0-1); EOSINOPHILS # (AUTO) 0.06 x10^3/uL (0-0.4); EOSINOPHILS % (AUTO) 1 % (1-7); LYMPHOCYTES # (AUTO) 0.29 x10^3/uL (1-3.4); LYMPHOCYTES % (AUTO) 3 % (22-44); MD NO; MEAN CORPUSCULAR HEMOGLOBIN 30.3 pg (27.0-34.8); MEAN CORPUSCULAR HGB CONC 32.3 g/dL (32.4-35.8); MEAN CORPUSCULAR VOLUME 93.9 fL (80-100); MEAN PLATELET VOLUME 8.8 fL (7.4-10.4); MONOCYTES % (AUTO) 6 % (2-9); NEUTROPHILS # (AUTO) 8.05 x10^3/uL (1.8-6.8); NEUTROPHILS % (AUTO) 90 % (42-75); PLATELET COUNT 313 x10^3/uL (130-400); RED BLOOD COUNT 4.63 x10^6/uL (3.82-5.3); RED CELL DISTRIBUTION WIDTH 16.7 % (9.6-15.2)
[2019-06-18 04:56] LABS: ALANINE AMINOTRANSFERASE 14 U/L (12-78); ALBUMIN 2.2 g/dL (3.4-5.0); ANION GAP 9 mmol/L (5-15); CALCIUM 7.3 mg/dL (8.5-10.1); CHLORIDE 105 mmol/L (98-107)
[2019-06-18 05:00] LABS: ALKALINE PHOSPHATASE 50 U/L (45-117); BILIRUBIN,TOTAL 0.7 mg/dL (0.2-1.0); TOTAL PROTEIN 5.1 g/dL (6.4-8.2); TROPONIN I 0.213 ng/mL (0.000-0.045)
[2019-06-18] MEDS: HEPARIN 5,000 UNITS/ML, 1ML SQ SCH ×2 (05:03→14:19)
[2019-06-18] MEDS: D5%-0.45% NACL 1,000 ML IV SCH ×3 (05:04→18:35)
[2019-06-18] MEDS: ONDANSETRON 2MG/ML, 2ML IVPush PRN (05:59)
[2019-06-18 09:00] VITALS: BP 114/74
[2019-06-18] MEDS: SODIUM CHLORIDE FLUSH 10ML SYR IVF SCH ×2 (09:00→22:27)
[2019-06-18] MEDS: PANTOPROZOLE 40MG TABLET PO SCH ×2 (09:35→22:20)
[2019-06-18] MEDS: OXYcodone/APAP 10/325MG TABLET PO SCH ×3 (09:35→22:21)
[2019-06-18] MEDS: ESCITALOPRAM 10MG TABLET PO SCH (09:35)
[2019-06-18] MEDS: VENLAFAXINE XR 37.5MG CAP.ER.24H PO SCH (09:36)
[2019-06-18] MEDS: ASPIRIN 81 MG TABLET EC PO SCH (09:40)
[2019-06-18 12:45] LABS: HEMOGLOBIN A1C 6.3 % (4.2-6.3)
[2019-06-18] MEDS: NICOTINE 7 MG/24 HR PATCH.TD24 TD SCH (13:30)
[2019-06-18] MEDS ORDERED: OMNIPAQUE 350 MG/ML, 100ML BOTTLE ONE (13:35)
[2019-06-18 14:16] VITALS: BP 127/66
[2019-06-18] MEDS: PYRIDOSTIGMINE 60 MG TABLET PO SCH ×3 (14:19→22:20)
[2019-06-18 15:21] VITALS: BP 129/77
[2019-06-18] MEDS ORDERED: LIDOCAINE 1%, 10ML ONE (16:27)
[2019-06-18] MEDS: INSULIN LISPRO 100 UNITS/ML, PEN SQ-INSULIN SCH ×2 (17:27→22:23)
[2019-06-18 21:38] VITALS: BP 120/65
[2019-06-18] MEDS: ATORVASTATIN 40 MG TABLET PO SCH (22:20)
[2019-06-19] VITALS (9 sets, daily range): BP systolic 93–166; BP diastolic 53–96
[2019-06-19] MEDS: D5%-0.45% NACL 1,000 ML IV SCH ×3 (00:38→15:07)
[2019-06-19] MEDS: DILTIAZEM 125 MG in SODIUM CHLORIDE 0.9% 100 ML IV SCH (04:51)
[2019-06-19 05:46] LABS: MEAN CORPUSCULAR HEMOGLOBIN 30.2 pg (27.0-34.8); MEAN CORPUSCULAR HGB CONC 32.1 g/dL (32.4-35.8); MEAN CORPUSCULAR VOLUME 93.9 fL (80-100); MEAN PLATELET VOLUME 8.5 fL (7.4-10.4); PLATELET COUNT 286 x10^3/uL (130-400); RED CELL DISTRIBUTION WIDTH 16.9 % (9.6-15.2)
[2019-06-19 05:54] LABS: INTERNATIONAL NORMALIZED RATIO 1.34 (0.93-1.1); PROTHROMBIN TIME 13.9 Seconds (9.6-11.5)
[2019-06-19 05:58] LABS: ALBUMIN 1.9 g/dL (3.4-5.0); ANION GAP 6 mmol/L (5-15); CALCIUM 6.9 mg/dL (8.5-10.1); CHLORIDE 106 mmol/L (98-107)
[2019-06-19 06:02] LABS: ALANINE AMINOTRANSFERASE 18 U/L (12-78); ALKALINE PHOSPHATASE 51 U/L (45-117); BILIRUBIN,TOTAL 0.5 mg/dL (0.2-1.0); CREATININE 0.62 mg/dL (0.55-1.02); TOTAL PROTEIN 4.6 g/dL (6.4-8.2)
[2019-06-19 06:29] LABS: BASOPHILS % (AUTO) 0 % (0-1); EOSINOPHILS # (AUTO) 0.04 x10^3/uL (0-0.4); EOSINOPHILS % (AUTO) 0 % (1-7); LYMPHOCYTES # (AUTO) 0.88 x10^3/uL (1-3.4); LYMPHOCYTES % (AUTO) 9 % (22-44); MD SCAN; MONOCYTES # (AUTO) 0.26 x10^3/uL (0.2-0.8); MONOCYTES % (AUTO) 3 % (2-9); NEUTROPHILS # (AUTO) 8.81 x10^3/uL (1.8-6.8); NEUTROPHILS % (AUTO) 88 % (42-75)
[2019-06-19] MEDS: ONDANSETRON 2MG/ML, 2ML IVPush PRN (06:59)
[2019-06-19] MEDS: INSULIN LISPRO 100 UNITS/ML, PEN SQ-INSULIN SCH ×4 (08:03→21:49)
[2019-06-19] MEDS ORDERED: HYDROmorphone 1 MG/ML, 1ML INJ IM PRN (08:30)
[2019-06-19] MEDS: ASPIRIN 81 MG TABLET EC PO SCH (09:23)
[2019-06-19] MEDS: METOPROLOL TARTRATE 25 MG TABLET PO SCH ×2 (09:23→17:26)
[2019-06-19] MEDS: ESCITALOPRAM 10MG TABLET PO SCH (09:24)
[2019-06-19] MEDS: VENLAFAXINE XR 37.5MG CAP.ER.24H PO SCH (09:26)
[2019-06-19] MEDS: OXYcodone/APAP 10/325MG TABLET PO SCH ×2 (09:27→17:26)
[2019-06-19] MEDS: PANTOPROZOLE 40MG TABLET PO SCH ×2 (09:28→21:48)
[2019-06-19] MEDS: PYRIDOSTIGMINE 60 MG TABLET PO SCH ×3 (09:28→21:49)
[2019-06-19] MEDS: SODIUM CHLORIDE FLUSH 10ML SYR IVF SCH ×2 (09:28→21:48)
[2019-06-19] MEDS: VENLAFAXINE 75 MG CAP ER PO SCH ×2 (10:07→21:48)
[2019-06-19] MEDS: NICOTINE 7 MG/24 HR PATCH.TD24 TD SCH (13:54)
[2019-06-19] MEDS ORDERED: HYDROmorphone 2 MG/ML, 1ML ONE (15:15)
[2019-06-19] MEDS ORDERED: LIDOCAINE 1%, 10ML ONE (15:28)
[2019-06-19] MEDS ORDERED: HYDROmorphone 2 MG/ML, 1ML IM PRN (16:00)
[2019-06-19] MEDS: ATORVASTATIN 40 MG TABLET PO SCH (21:48)
[2019-06-19] MEDS ORDERED: SODIUM CHLORIDE 0.9%, 250ML IVBOLUS ONE (22:30)
[2019-06-20] MEDS: LIDODERM 5% PATCH TD SCH (00:35)
[2019-06-20] MEDS: OXYcodone/APAP 10/325MG TABLET PO SCH ×4 (00:38→21:28)
[2019-06-20] MEDS: D5%-0.45% NACL 1,000 ML IV SCH ×2 (00:56→10:10)
[2019-06-20 03:42] VITALS: BP 99/65
[2019-06-20 05:37] LABS: BASOPHILS % (AUTO) 0 % (0-1); EOSINOPHILS # (AUTO) 0.18 x10^3/uL (0-0.4); EOSINOPHILS % (AUTO) 2 % (1-7); LYMPHOCYTES # (AUTO) 0.71 x10^3/uL (1-3.4); LYMPHOCYTES % (AUTO) 7 % (22-44); MD NO; MEAN CORPUSCULAR HEMOGLOBIN 30.3 pg (27.0-34.8); MEAN CORPUSCULAR HGB CONC 31.9 g/dL (32.4-35.8); MEAN CORPUSCULAR VOLUME 95.1 fL (80-100); MEAN PLATELET VOLUME 9.3 fL (7.4-10.4); MONOCYTES # (AUTO) 0.46 x10^3/uL (0.2-0.8); MONOCYTES % (AUTO) 4 % (2-9); NEUTROPHILS # (AUTO) 8.94 x10^3/uL (1.8-6.8); NEUTROPHILS % (AUTO) 87 % (42-75); PLATELET COUNT 305 x10^3/uL (130-400); RED BLOOD COUNT 4.68 x10^6/uL (3.82-5.3); RED CELL DISTRIBUTION WIDTH 16.5 % (9.6-15.2)
[2019-06-20 05:40] LABS: ALANINE AMINOTRANSFERASE 15 U/L (12-78); ALBUMIN 1.7 g/dL (3.4-5.0); ANION GAP 5 mmol/L (5-15); CALCIUM 6.6 mg/dL (8.5-10.1); CHLORIDE 107 mmol/L (98-107)
[2019-06-20 05:43] LABS: ALKALINE PHOSPHATASE 61 U/L (45-117); BILIRUBIN,TOTAL 0.4 mg/dL (0.2-1.0); CREATININE 0.58 mg/dL (0.55-1.02); TOTAL PROTEIN 4.2 g/dL (6.4-8.2)
[2019-06-20] MEDS: ASPIRIN 81 MG TABLET EC PO SCH (05:53)
[2019-06-20] MEDS: INSULIN LISPRO 100 UNITS/ML, PEN SQ-INSULIN SCH ×4 (07:32→21:00)
[2019-06-20 07:44] VITALS: BP 117/67
[2019-06-20] MEDS: VENLAFAXINE 75 MG CAP ER PO SCH ×2 (10:05→21:28)
[2019-06-20] MEDS: ESCITALOPRAM 10MG TABLET PO SCH (10:05)
[2019-06-20] MEDS: PYRIDOSTIGMINE 60 MG TABLET PO SCH ×3 (10:06→21:28)
[2019-06-20] MEDS: PANTOPROZOLE 40MG TABLET PO SCH ×2 (10:06→21:28)
[2019-06-20] MEDS: SODIUM CHLORIDE FLUSH 10ML SYR IVF SCH ×2 (10:11→21:29)
[2019-06-20] MEDS ORDERED: HYDROmorphone 1 MG/ML, 1ML INJ IV PRN (11:30)
[2019-06-20] MEDS: NICOTINE 7 MG/24 HR PATCH.TD24 TD SCH (13:00)
[2019-06-20 13:59] VITALS: BP 102/70
[2019-06-20] MEDS: HYDROmorphone 2 MG/ML, 1ML IV PRN (15:31)
[2019-06-20] MEDS ORDERED: OMNIPAQUE 350 MG/ML, 100ML BOTTLE ONE (16:33)
[2019-06-20 17:48] VITALS: BP 106/74
[2019-06-20] MEDS: METOPROLOL TARTRATE 25 MG TABLET PO SCH (17:50)
[2019-06-20 19:41] VITALS: BP 102/71
[2019-06-20] MEDS: ATORVASTATIN 40 MG TABLET PO SCH (21:28)
[2019-06-21] MEDS: LIDODERM 5% PATCH TD SCH (01:37)
[2019-06-21 02:05] VITALS: BP 97/68
[2019-06-21 05:28] LABS: BASOPHILS # (AUTO) 0.03 x10^3/uL (0-0.1); BASOPHILS % (AUTO) 0 % (0-1); EOSINOPHILS # (AUTO) 0.15 x10^3/uL (0-0.4); EOSINOPHILS % (AUTO) 2 % (1-7); LYMPHOCYTES # (AUTO) 0.27 x10^3/uL (1-3.4); LYMPHOCYTES % (AUTO) 4 % (22-44); MD NO; MEAN CORPUSCULAR HEMOGLOBIN 30.3 pg (27.0-34.8); MEAN CORPUSCULAR HGB CONC 31.9 g/dL (32.4-35.8); MEAN CORPUSCULAR VOLUME 95.1 fL (80-100); MONOCYTES % (AUTO) 8 % (2-9); NEUTROPHILS # (AUTO) 6.14 x10^3/uL (1.8-6.8); NEUTROPHILS % (AUTO) 85 % (42-75); PLATELET COUNT 269 x10^3/uL (130-400); RED BLOOD COUNT 5.35 x10^6/uL (3.82-5.3); RED CELL DISTRIBUTION WIDTH 16.7 % (9.6-15.2)
[2019-06-21 05:30] LABS: ALANINE AMINOTRANSFERASE 19 U/L (12-78); ALBUMIN 1.8 g/dL (3.4-5.0); ANION GAP 6 mmol/L (5-15); CALCIUM 7.2 mg/dL (8.5-10.1); CHLORIDE 110 mmol/L (98-107); CREATININE 0.74 mg/dL (0.55-1.02)
[2019-06-21 05:36] LABS: ALKALINE PHOSPHATASE 72 U/L (45-117); BILIRUBIN,TOTAL 0.5 mg/dL (0.2-1.0); TOTAL PROTEIN 4.8 g/dL (6.4-8.2)
[2019-06-21] MEDS: ASPIRIN 81 MG TABLET EC PO SCH (06:08)
[2019-06-21] MEDS: METOPROLOL TARTRATE 25 MG TABLET PO SCH ×2 (06:09→17:04)
[2019-06-21] MEDS: INSULIN LISPRO 100 UNITS/ML, PEN SQ-INSULIN SCH ×5 (07:00→21:00)
[2019-06-21 08:15] VITALS: BP 109/75
[2019-06-21 09:05] VITALS: BP 94/86
[2019-06-21] MEDS: OXYcodone/APAP 10/325MG TABLET PO SCH ×3 (09:12→18:15)
[2019-06-21] MEDS: ESCITALOPRAM 10MG TABLET PO SCH (09:13)
[2019-06-21] MEDS: PANTOPROZOLE 40MG TABLET PO SCH ×2 (09:13→21:54)
[2019-06-21] MEDS: PYRIDOSTIGMINE 60 MG TABLET PO SCH ×3 (09:13→21:54)
[2019-06-21] MEDS: VENLAFAXINE 75 MG CAP ER PO SCH ×2 (09:14→21:54)
[2019-06-21] MEDS: D5%-0.9% NACL 1,000 ML IV SCH ×2 (09:37→22:52)
[2019-06-21] MEDS: SODIUM CHLORIDE FLUSH 10ML SYR IVF SCH ×2 (09:40→21:00)
[2019-06-21] MEDS ORDERED: FENTANYL PF 100 MCG/2ML ONE ×2 (14:28)
[2019-06-21] MEDS ORDERED: NALOXONE 1 MG/ML, 2ML ONE (14:28)
[2019-06-21] MEDS ORDERED: FLUMAZENIL 0.1 MG/1 ML, 5ML ONE (14:28)
[2019-06-21] MEDS ORDERED: MIDAZOLAM 1 MG/ML, 5ML ONE ×2 (14:28)
[2019-06-21] MEDS: NICOTINE 7 MG/24 HR PATCH.TD24 TD SCH (16:54)
[2019-06-21 19:45] VITALS: BP 100/67
[2019-06-21] MEDS: ATORVASTATIN 40 MG TABLET PO SCH (21:54)
[2019-06-22] MEDS: LIDODERM 5% PATCH TD SCH ×2 (00:30→23:42)
[2019-06-22 00:43] VITALS: BP 93/64
[2019-06-22] MEDS: OXYcodone/APAP 10/325MG TABLET PO SCH ×4 (01:45→23:41)
[2019-06-22] MEDS: METOPROLOL TARTRATE 25 MG TABLET PO SCH ×2 (06:00→18:36)
[2019-06-22] MEDS: ASPIRIN 81 MG TABLET EC PO SCH (06:35)
[2019-06-22 06:37] VITALS: BP 102/57
[2019-06-22] MEDS: INSULIN LISPRO 100 UNITS/ML, PEN SQ-INSULIN SCH ×4 (07:00→21:00)
[2019-06-22 08:27] LABS: BASOPHILS # (AUTO) 0.01 x10^3/uL (0-0.1); BASOPHILS % (AUTO) 0 % (0-1); EOSINOPHILS # (AUTO) 0.03 x10^3/uL (0-0.4); EOSINOPHILS % (AUTO) 0 % (1-7); LYMPHOCYTES # (AUTO) 0.32 x10^3/uL (1-3.4); LYMPHOCYTES % (AUTO) 4 % (22-44); MD NO; MEAN CORPUSCULAR HEMOGLOBIN 29.6 pg (27.0-34.8); MEAN CORPUSCULAR VOLUME 92.4 fL (80-100); MEAN PLATELET VOLUME 8.3 fL (7.4-10.4); MONOCYTES # (AUTO) 0.58 x10^3/uL (0.2-0.8); MONOCYTES % (AUTO) 7 % (2-9); NEUTROPHILS # (AUTO) 7.95 x10^3/uL (1.8-6.8); NEUTROPHILS % (AUTO) 90 % (42-75); PLATELET COUNT 289 x10^3/uL (130-400); RED BLOOD COUNT 5.11 x10^6/uL (3.82-5.3); RED CELL DISTRIBUTION WIDTH 16.2 % (9.6-15.2)
[2019-06-22 08:33] VITALS: BP 90/64
[2019-06-22] MEDS: D5%-0.9% NACL 1,000 ML IV SCH ×2 (08:33→18:35)
[2019-06-22] MEDS: VENLAFAXINE 75 MG CAP ER PO SCH ×2 (08:36→21:48)
[2019-06-22] MEDS: PANTOPROZOLE 40MG TABLET PO SCH ×2 (08:36→21:48)
[2019-06-22] MEDS: ESCITALOPRAM 10MG TABLET PO SCH (08:36)
[2019-06-22] MEDS: PYRIDOSTIGMINE 60 MG TABLET PO SCH ×3 (08:36→21:48)
[2019-06-22 08:37] LABS: ALANINE AMINOTRANSFERASE 19 U/L (12-78); ALBUMIN 1.7 g/dL (3.4-5.0); ANION GAP 7 mmol/L (5-15); CALCIUM 7.1 mg/dL (8.5-10.1); CHLORIDE 113 mmol/L (98-107); CREATININE 0.63 mg/dL (0.55-1.02)
[2019-06-22 08:39] LABS: ALKALINE PHOSPHATASE 72 U/L (45-117); BILIRUBIN,TOTAL 0.6 mg/dL (0.2-1.0); TOTAL PROTEIN 4.6 g/dL (6.4-8.2)
[2019-06-22] MEDS: SODIUM CHLORIDE FLUSH 10ML SYR IVF SCH ×2 (08:42→21:00)
[2019-06-22 11:07] VITALS: BP 104/59
[2019-06-22 12:50] VITALS: BP 104/70
[2019-06-22] MEDS: NICOTINE 7 MG/24 HR PATCH.TD24 TD SCH (13:30)
[2019-06-22 19:43] VITALS: BP 124/81
[2019-06-22] MEDS: ATORVASTATIN 40 MG TABLET PO SCH (21:48)
[2019-06-23 01:40] VITALS: BP 132/61
[2019-06-23] MEDS: D5%-0.9% NACL 1,000 ML IV SCH ×2 (04:17→14:00)
[2019-06-23] MEDS: METOPROLOL TARTRATE 25 MG TABLET PO SCH (06:13)
[2019-06-23] MEDS: ASPIRIN 81 MG TABLET EC PO SCH (06:13)
[2019-06-23 06:15] VITALS: BP 100/68
[2019-06-23] MEDS: INSULIN LISPRO 100 UNITS/ML, PEN SQ-INSULIN SCH (07:00)
[2019-06-23 08:23] VITALS: BP 94/68
[2019-06-23] MEDS: PANTOPROZOLE 40MG TABLET PO SCH ×2 (08:48→21:56)
[2019-06-23] MEDS: OXYcodone/APAP 10/325MG TABLET PO SCH ×2 (08:50→21:57)
[2019-06-23] MEDS: ESCITALOPRAM 10MG TABLET PO SCH (08:51)
[2019-06-23] MEDS: PYRIDOSTIGMINE 60 MG TABLET PO SCH ×3 (08:51→21:57)
[2019-06-23] MEDS: VENLAFAXINE 75 MG CAP ER PO SCH ×2 (08:51→21:56)
[2019-06-23] MEDS: SODIUM CHLORIDE FLUSH 10ML SYR IVF SCH ×2 (08:52→21:00)
[2019-06-23] MEDS ORDERED: LORazepam 2 MG/ML, 1ML IVPush PRN (09:30)
[2019-06-23] MEDS: NICOTINE 7 MG/24 HR PATCH.TD24 TD SCH (13:30)
[2019-06-23 17:00] VITALS: BP 99/70
[2019-06-23 17:09] VITALS: BP 99/70
[2019-06-23 22:04] VITALS: BP 96/68
[2019-06-24] MEDS: LIDODERM 5% PATCH TD SCH (00:30)
[2019-06-24 01:34] VITALS: BP 91/62
[2019-06-24 08:28] VITALS: BP 97/48
[2019-06-24] MEDS: PANTOPROZOLE 40MG TABLET PO SCH ×2 (09:44→21:34)
[2019-06-24] MEDS: OXYcodone/APAP 10/325MG TABLET PO SCH ×3 (09:44→21:34)
[2019-06-24] MEDS: VENLAFAXINE 75 MG CAP ER PO SCH ×2 (09:45→21:34)
[2019-06-24] MEDS: PYRIDOSTIGMINE 60 MG TABLET PO SCH ×3 (09:45→21:34)
[2019-06-24] MEDS: NICOTINE 7 MG/24 HR PATCH.TD24 TD SCH (09:51)
[2019-06-24] MEDS: SODIUM CHLORIDE FLUSH 10ML SYR IVF SCH ×2 (09:52→21:00)
[2019-06-24] MEDS: D5%-0.9% NACL 1,000 ML IV SCH ×2 (09:53)
[2019-06-25] MEDS: LIDODERM 5% PATCH TD SCH ×2 (01:42→20:40)
[2019-06-25] MEDS: SODIUM CHLORIDE FLUSH 10ML SYR IVF SCH ×2 (09:00→20:20)
[2019-06-25] MEDS: PYRIDOSTIGMINE 60 MG TABLET PO SCH ×3 (09:53→20:20)
[2019-06-25] MEDS: OXYcodone/APAP 10/325MG TABLET PO SCH ×3 (09:53→20:20)
[2019-06-25] MEDS: VENLAFAXINE 75 MG CAP ER PO SCH ×2 (09:53→20:20)
[2019-06-25] MEDS: PANTOPROZOLE 40MG TABLET PO SCH ×2 (09:53→20:20)
[2019-06-25] MEDS: NICOTINE 7 MG/24 HR PATCH.TD24 TD SCH (13:30)
[2019-06-26] MEDS: SODIUM CHLORIDE FLUSH 10ML SYR IVF SCH (08:54)
[2019-06-26] MEDS: PYRIDOSTIGMINE 60 MG TABLET PO SCH (09:01)
[2019-06-26] MEDS: HYDROmorphone 2 MG/ML, 1ML IV PRN (09:13)
[2019-06-26] MEDS: OXYcodone/APAP 10/325MG TABLET PO SCH (10:28)
== END 2019-06-26 11:22 | disposition hospice, inpatient (51) | DRG 374 ==
LOC: ED 11:03 → EDIP 11:31 → 5SO 18:33 → 4NW 06-23 16:44
PROVIDERS: ADMIT Internal Medicine; ATTEND Internal Medicine
PROC: 0T9B70Z Drainage of Bladder with Drainage Device, Via Natural or Artificial Opening (ICD-10-PCS; 2019-06-17)
PROC: 0W9G3ZZ Drainage of Peritoneal Cavity, Percutaneous Approach (ICD-10-PCS; principal; 2019-06-19)
PROC: 0WBH3ZX Excision of Retroperitoneum, Percutaneous Approach, Diagnostic (ICD-10-PCS; 2019-06-21)
DX: C78.6 Secondary malignant neoplasm of retroperitoneum and peritoneum (principal); E43 Unspecified severe protein-calorie malnutrition; I21.3 ST elevation (STEMI) myocardial infarction of unspecified site; J96.21 Acute and chronic respiratory failure with hypoxia; E87.1 Hypo-osmolality and hyponatremia; E87.2 Acidosis; J90 Pleural effusion, not elsewhere classified; M48.50XA Collapsed vertebra, not elsewhere classified, site unspecified, initial encounter for fracture; R18.8 Other ascites; C80.1 Malignant (primary) neoplasm, unspecified; E16.2 Hypoglycemia, unspecified; E78.5 Hyperlipidemia, unspecified; E86.0 Dehydration; E86.1 Hypovolemia; F17.210 Nicotine dependence, cigarettes, uncomplicated; F32.9 Major depressive disorder, single episode, unspecified; G70.00 Myasthenia gravis without (acute) exacerbation; G89.4 Chronic pain syndrome; I10 Essential (primary) hypertension; I48.91 Unspecified atrial fibrillation; I73.00 Raynaud's syndrome without gangrene; Z51.5 Encounter for palliative care; M35.00 Sjogren syndrome, unspecified; Z66 Do not resuscitate; I25.2 Old myocardial infarction; Z82.49 Family history of ischemic heart disease and other diseases of the circulatory system; Z86.711 Personal history of pulmonary embolism; Z86.718 Personal history of other venous thrombosis and embolism; Z90.49 Acquired absence of other specified parts of digestive tract; Z93.2 Ileostomy status; Z93.3 Colostomy status; Z95.828 Presence of other vascular implants and grafts; Z99.81 Dependence on supplemental oxygen; Z79.899 Other long term (current) drug therapy; Z68.22 Body mass index [BMI] 22.0-22.9, adult; S80.12XA Contusion of left lower leg, initial encounter; X58.XXXA Exposure to other specified factors, initial encounter; Y93.89 Activity, other specified; Y92.89 Other specified places as the place of occurrence of the external cause; Y99.8 Other external cause status
CPT/HCPCS: 36415; 82042; 82945; 84145; 89051; 96374; 96375; 99285; J3490; J7042; 49083; 49180; 71045; 71275; 74177; 77012; 80053; 81001; 82378; 82962; 83036; 83605; 83690; 84157; 84484; 84681; 85025; 85610; 86301; 86337; 87070; 87205; 88112; 88305; 88341; 88342; 88360; 93005; 93306; 93922; 93970; 99156; 99157; G0378; J1170; J1644; J2250; J2405; J3010; Q9967; J1815; J2310; J7030; J7050; J7512